=== PATIENT | male | born 1955 | race African-American/Black ===

== ENCOUNTER 2018-05-07 13:09 | Inpatient (IN) | payer OTHER ==
[~2018-05-07] VITALS: Ht 182.9 cm; Wt 64.0 kg
[2018-05-07 13:15] VITALS: BP 85/58
[2018-05-07] MEDS ORDERED: NS 1000ml 2,200 ML IVLG ONE (13:30)
[2018-05-07 13:41] LABS: APPEARANCE,URINE VERY CLOUDY; BILIRUBIN, URINE NEGATIVE (NEGATIVE); COLOR,URINE AMBER; GLUCOSE, URINE (UA) NEGATIVE (NEGATIVE); KETONES,URINE 1+ (NEGATIVE); LEUKOCYTE ESTERASE ,URINE 3+ (NEGATIVE); NITRITE,URINE NEGATIVE (NEGATIVE); PH,URINE 6.5 (4.5-8.0); PROTEIN,URINE 2+ (NEGATIVE); UROBILINOGEN,URINE 4 MG/DL (0.0-1.0)
[2018-05-07 13:42] LABS: HEMATOCRIT 33.2 % (42.0-52.0); HEMOGLOBIN 10.1 G/DL (14.2-18.0); MEAN CORPUSCULAR VOLUME 73 FL (80-99); PLATELET COUNT 191 K/UL (150-450); RED BLOOD COUNT 4.52 M/UL (4.70-6.10); RED CELL DISTRIBUTION WIDTH 15.9 % (11.6-14.8); WHITE BLOOD COUNT 16.9 K/UL (4.8-10.8)
[2018-05-07 13:58] LABS: ANION GAP 8 mmol/L (5-15); BLOOD UREA NITROGEN 53 mg/dL (7-18); CALCIUM 9.1 MG/DL (8.5-10.1); CARBON DIOXIDE 30 MMOL/L (21-32); CHLORIDE 114 MMOL/L (98-107); CREATININE 1.1 MG/DL (0.55-1.30); POTASSIUM 3.7 MMOL/L (3.5-5.1); SODIUM 152 MMOL/L (136-145)
[2018-05-07 14:07] LABS: INR 1.2 (0.9-1.1)
[2018-05-07 14:13] LABS: ALANINE AMINOTRANSFERASE 106 U/L (12-78); ALBUMIN 2.1 G/DL (3.4-5.0); ALBUMIN/GLOBULIN RATIO 0.4 (1.0-2.7); ALKALINE PHOSPHATASE 160 U/L (46-116); ASPARTATE AMINO TRANSFERASE 38 U/L (15-37); BILIRUBIN,TOTAL 0.4 MG/DL (0.2-1.0); CKMB 1.3 NG/ML (0.0-3.6); CREATINE KINASE 274 U/L (26-308)
--- NOTE | 2018-05-07 14:16 | Diagnostic Imaging Report ---
Indication: Cough, chest pain Technique: One view of the chest Comparison: none Findings: There are bilateral mixed interstitial and alveolar infiltrates in the lower lungs, right greater than left. The heart size is upper limits of normal. The aorta is tortuous and calcified. The pleural spaces are clear Impression: Positive for bilateral lower lung infiltrates, likely pneumonia
--- NOTE | 2018-05-07 14:18 | Emergency Room Report ---
History of Present Illness General Chief Complaint: General Complaint Source: Medical Record, PMD Present Illness HPI 63 male with history of hypertension sent by Dr. Bernal for fever and pneumonia documented as an outpatient in the care home. Allergies: Coded Allergies: No Known Allergies (Unverified , 05/07/18) Patient History Limited by: medical condition Past Medical History: see triage record Reviewed Nursing Documentation: PMH: Agreed; PSxH: Agreed Nursing Documentation-PMH Past Medical History: No History, Except For Hx Hypertension: Yes Hx COPD: Yes - emphysema Hx Gastrointestinal Problems: Yes - Dysphagia. GERD Hx Seizures: Yes Review of Systems All Other Systems: limited Physical Exam Vital Signs Date Time Temp Pulse Resp B/P (MAP) Pulse Ox O2 Delivery O2 Flow Rate FiO2 05/07/18 13:03 99.1 111 20 85/58 96 Room Air 99.1 Sp02 EP Interpretation: reviewed, normal General Appearance: alert, mild distress Head: normocephalic Eyes: bilateral eye normal inspection, bilateral eye PERRL, bilateral eye EOMI ENT: normal ENT inspection, hearing grossly normal, normal pharynx, no angioedema, normal voice, dry mucus membranes Neck: normal inspection, supple, supple/symm/no masses Respiratory: chest non-tender, rhonchi - R>L, chest symmetrical, palpation of chest normal Cardiovascular #1: normal peripheral pulses, regular rate, rhythm Cardiovascular #2: 2+ carotid (R), 2+ carotid (L) Gastrointestinal: normal inspection, non tender, soft, no mass, no guarding, no rebound Rectal: deferred Genitourinary: normal inspection, no CVA tenderness Musculoskeletal: back normal, gait/station normal, normal range of motion, non- tender, no calf tenderness Neurologic: alert, responsive, client relationship manager III-XII nml as tested, motor strength/tone normal, sensory intact, speech normal Skin: normal color, no rash, warm/dry Lymphatic: no adenopathy Procedures Critical Care Time Critical Care Time 35 minutes of critical care time excluding all procedures, due to hypotension and need for emergent intervention in the setting of sepsis Medical Decision Making Diagnostic Impression: Primary Impression: Sepsis ER Course Upon arrival patient received 30 mL daily IV fluid resuscitation as well as blood cultures, lactic acid and broad-spectrum antibiotics. Patient remained stable and had improvement and low blood pressure, focused sepsis examination was performed again later and patient's hemodynamics improved I spoke with Dr. Bernal, and he pointed patient admitted to his service. EKG Diagnostic Results EKG Time: 13:28 EP Interpretation: no st-t- changes, no twi Rate: normal Rhythm: NSR ST Segments: no acute changes Rhythm Strip Diag. Results Rhythm Strip Time: 14:17 EP Interpretation: yes Rate: 115 Rhythm: NSR, no PVC's, no ectopy Chest X-Ray Diagnostic Results Chest X-Ray Diagnostic Results : Chest X-Ray Ordered: Yes # of Views/Limited/Complete: 1 View Indication: Shortness of Breath EP Interpretation: Yes Interpretation: no effusion, no pneumothorax, other - R sided consolidation Impression: Other - R PNA Electronically Signed by: Mone Gomez MD Last Vital Signs Date Time Temp Pulse Resp B/P (MAP) Pulse Ox O2 Delivery O2 Flow Rate FiO2 05/07/18 13:15 100.9 20 85/58 96 Room Air 100.9 05/07/18 13:03 111 Disposition: ADMITTED INPATIENT Condition: Stable Referrals: Edna Delaney MD (PCP) MONE GOMEZ M.D May 07, 2018 14:18
[2018-05-07] MEDS ORDERED: OMEPRAZOLE20 M2 GT (14:20)
[2018-05-07] MEDS ORDERED: GLYCOPYRROLATE1 MG GT (14:20)
[2018-05-07] MEDS ORDERED: LISINOPRIL20 MG GT (14:20)
[2018-05-07] MEDS ORDERED: VITAMIN D400 INTLU GT (14:20)
[2018-05-07] MEDS ORDERED: MIRALAX17 G2 GT (14:20)
[2018-05-07] MEDS ORDERED: ATORVASTATIN CA20 MG GT (14:20)
[2018-05-07] MEDS ORDERED: HIBICLENS118 ML GT (14:20)
[2018-05-07] MEDS ORDERED: HEPARIN SO5000 UNIT2 SUBQ (14:20)
[2018-05-07] MEDS ORDERED: KEPPRA LIQ100 MG/1 M GT (14:20)
[2018-05-07] MEDS ORDERED: PROSTATE THERA1 EACH GT (14:20)
[2018-05-07] MEDS ORDERED: ASPIR 8181 MG GT (14:20)
[2018-05-07 15:22] VITALS: BP 101/69
[2018-05-07 16:50] VITALS: BP 100/62
[2018-05-07] MEDS ORDERED: Miralax 17gm pkt ORAL PRN (18:00)
[2018-05-07] MEDS ORDERED: Lisinopril 20mg tab GT SCH (18:00)
[2018-05-07] MEDS: D5 1/2NS 1,000 ML IV SCH (19:04)
--- NOTE | 2018-05-07 19:08 | Consultation ---
History of Present Illness General Date patient seen: May 07, 2018 Chief Complaint: General Complaint Present Illness HPI 63 y/o M with hx of HTN, COPD/emphysema, dysphagia s/p G-tube, GERD, seizure disorder presents to ED on 05/07 from snf due to BP of 86/58, fever up to 101.5 and concern for PNA. Here TM 100.9 WBC 16 CXR with b/l infilrates/ Allergies: Coded Allergies: No Known Allergies (Unverified , 05/07/18) Medication History Scheduled Aspirin* (Aspir 81*), 81 MG GT DAILY, (Reported) Atorvastatin Calcium* (Atorvastatin Calcium*), 10 MG GT BEDTIME, (Reported) Chlorhexidine Gluconate* (Hibiclens*), 15 ML GT BID, (Reported) Glycopyrrolate (Glycopyrrolate), 1 MG GT TID, (Reported) Heparin Sod (Porcine) (Heparin Sodium*), 5,000 UNITS SUBQ EVERY 12 HOURS, ( Reported) Levetiracetam (Keppra), 7.5 ML GT Q12HR, (Reported) Lisinopril (Lisinopril*), 20 MG GT DAILY, (Reported) M-17/Nettle/Pumpk/Saw Palmet (Prostate Therapy Softgel), 30 ML GT DAILY, ( Reported) Omeprazole (Omeprazole), 20 MG GT DAILY, (Reported) Polyethylene Glycol 3350* (Miralax*), 17 GM GT DAILY, (Reported) Vitamin D (Vitamin D3), 5,000 UNITS GT DAILY, (Reported) Patient History Healthcare decision maker N Resuscitation status Full Code Advanced Directive on File No Patient History Narrative Pmhx: as above Shx: reviewed Fhx: non contributory Review of Systems All Other Systems: negative except mentioned in HPI Physical Exam Physical Exam Narrative General Appearance: alert, mild distress Head: normocephalic Eyes: bilateral eye normal inspection, bilateral eye PERRL, bilateral eye EOMI ENT: normal ENT inspection, hearing grossly normal, normal pharynx, no angioedema, normal voice, dry mucus membranes Neck: normal inspection, supple, supple/symm/no masses Respiratory: chest non-tender, rhonchi - R>L, chest symmetrical, palpation of chest normal Cardiovascular #1: normal peripheral pulses, regular rate, rhythm Gastrointestinal: normal inspection, non tender, soft, no mass, no guarding, no rebound Genitourinary: normal inspection, no CVA tenderness Skin: normal color, no rash, warm/dry Last 24 Hour Vital Signs Date Time Temp Pulse Resp B/P (MAP) Pulse Ox O2 Delivery O2 Flow Rate FiO2 05/07/18 18:14 Room Air 05/07/18 18:00 100/62 05/07/18 16:50 97.2 70 100/62 (75) 97 97.2 05/07/18 16:39 100.9 83 22 100/68 100 Room Air 100.9 05/07/18 15:22 100.9 88 23 101/69 99 Room Air 100.9 05/07/18 13:15 100.9 20 85/58 96 Room Air 100.9 05/07/18 13:03 99.1 111 20 85/58 96 Room Air 99.1 Laboratory Tests Test 05/07/18 13:15 05/07/18 13:30 White Blood Count 16.9 K/UL (4.8-10.8) H Red Blood Count 4.52 M/UL (4.70-6.10) L Hemoglobin 10.1 G/DL (14.2-18.0) L Hematocrit 33.2 % (42.0-52.0) L Mean Corpuscular Volume 73 FL (80-99) L Mean Corpuscular Hemoglobin 22.4 PG (27.0-31.0) L Mean Corpuscular Hemoglobin Concent 30.5 G/DL (32.0-36.0) L Red Cell Distribution Width 15.9 % (11.6-14.8) H Platelet Count 191 K/UL (150-450) Mean Platelet Volume 9.8 FL (6.5-10.1) Neutrophils (%) (Auto) % (45.0-75.0) Lymphocytes (%) (Auto) % (20.0-45.0) Monocytes (%) (Auto) % (1.0-10.0) Eosinophils (%) (Auto) % (0.0-3.0) Basophils (%) (Auto) % (0.0-2.0) Differential Total Cells Counted 100 Neutrophils % (Manual) 88 % (45-75) H Lymphocytes % (Manual) 9 % (20-45) L Monocytes % (Manual) 3 % (1-10) Eosinophils % (Manual) 0 % (0-3) Basophils % (Manual) 0 % (0-2) Band Neutrophils 0 % (0-8) Nucleated Red Blood Cells 1 /100 WBC Platelet Estimate Adequate Platelet Morphology Normal Anisocytosis 1+ Ovalocytes 1+ Stomatocytes 1+ Prothrombin Time 12.6 SEC (9.30-11.50) H Prothromb Time International Ratio 1.2 (0.9-1.1) H Activated Partial Thromboplast Time 30 SEC (23-33) Sodium Level 152 MMOL/L (136-145) H Potassium Level 3.7 MMOL/L (3.5-5.1) Chloride Level 114 MMOL/L (98-107) H Carbon Dioxide Level 30 MMOL/L (21-32) Anion Gap 8 mmol/L (5-15) Blood Urea Nitrogen 53 mg/dL (7-18) H Creatinine 1.1 MG/DL (0.55-1.30) Estimat Glomerular Filtration Rate > 60 mL/min (>60) Glucose Level 125 MG/DL (74-106) H Lactic Acid Level 1.60 mmol/L (0.4-2.0) Calcium Level 9.1 MG/DL (8.5-10.1) Magnesium Level 2.4 MG/DL (1.8-2.4) Total Bilirubin 0.4 MG/DL (0.2-1.0) Aspartate Amino Transf (AST/SGOT) 38 U/L (15-37) H Alanine Aminotransferase (ALT/SGPT) 106 U/L (12-78) H Alkaline Phosphatase 160 U/L (46-116) H Total Creatine Kinase 274 U/L (26-308) Creatine Kinase MB 1.3 NG/ML (0.0-3.6) Creatine Kinase MB Relative Index 0.4 Troponin I 0.001 ng/mL (0.000-0.056) Pro-B-Type Natriuretic Peptide 401 pg/mL (0-125) H Total Protein 8.0 G/DL (6.4-8.2) Albumin 2.1 G/DL (3.4-5.0) L Globulin 5.9 g/dL Albumin/Globulin Ratio 0.4 (1.0-2.7) L Urine Color Mirian Urine Appearance Very cloudy Urine pH 6.5 (4.5-8.0) Urine Specific [place] 1.015 (1.005-1.035) Urine Protein 2+ (NEGATIVE) H Urine Glucose (UA) Negative (NEGATIVE) Urine Ketones 1+ (NEGATIVE) H Urine Occult Blood Negative (NEGATIVE) Urine Nitrite Negative (NEGATIVE) Urine Bilirubin Negative (NEGATIVE) Urine Ictotest Negative Urine Urobilinogen 4 MG/DL (0.0-1.0) H Urine Leukocyte Esterase 3+ (NEGATIVE) H Urine RBC 0-2 /HPF (0 - 0) H Urine WBC 5-10 /HPF (0 - 0) H Urine Squamous Epithelial Cells Few /LPF (NONE/OCC) Urine Bacteria Many /HPF (NONE) H Height (Feet): 6 Weight (Pounds): 160 Medications Current Medications Medications (Trade) Dose Ordered Sig/Violette Route PRN Reason Start Time Stop Time Status Last Admin Dose Admin Aspirin (ASA) 81 mg DAILY GT 05/08/18 09:00 06/07/18 08:59 Atorvastatin Calcium (Lipitor) 20 mg BEDTIME GT 05/07/18 21:00 06/06/18 20:59 Dextrose (Dextrose 50%) 25 ml STAT PRN IV Hypoglycemia 05/07/18 18:00 06/06/18 17:59 Dextrose (Dextrose 50%) 50 ml STAT PRN IV Hypoglycemia 05/07/18 18:00 06/06/18 17:59 Dextrose/Sodium Chloride 1,000 ml @ 50 mls/hr Q20H IV 05/07/18 18:50 06/06/18 18:49 Heparin Sodium (Porcine) (Heparin 5000 units/ml) 5,000 units EVERY 12 HOURS SUBQ 05/07/18 21:00 06/06/18 20:59 Levetiracetam (Keppra) 750 mg Q12HR GT 05/07/18 21:00 06/06/18 20:59 Levofloxacin 150 ml @ 150 mls/hr Q24H IV 05/07/18 13:30 05/08/18 13:29 05/07/18 13:36 Lisinopril (Prinivil) 20 mg ONCE GT 05/07/18 18:00 05/07/18 19:00 Pantoprazole (Protonix) 40 mg DAILY IVP 05/08/18 09:00 06/07/18 08:59 Polyethylene Glycol (Miralax) 17 gm DAILY PRN ORAL Constipation 05/07/18 18:00 06/06/18 17:59 Vitamin D (Vitamin D) 5,000 intlu DAILY GT 05/08/18 09:00 06/07/18 08:59 Assessment/Plan Assessment/Plan Abx: Levaquin 05/07- Assessment: Sepsis 2ry to PNA (HCAP vs Asp PNA) -CXR: Positive for bilateral lower lung infiltrates, likely pneumonia' -u/a wbc 5-10, nit neg, leuk +3 Fever/leukocytosis HTN COPD/emphysema dysphagia s/p G-tube GERD seizure disorder Plan: -Start empiric IV Vanco and Zosyn pending sputum cx and continue Levaquin for atypical coverage (switch to PO) -f/u cx -monitor CBC/CMP, temperatures -sp cx, legionella ag urine -GT care -aspiration precautions Thank you for this consultation. Will continue to follow along with you. Discussed with Crystal Turcios M.D. May 07, 2018 19:08
[2018-05-07] MEDS ORDERED: Sodium Chloride 3% 4ml Nebul Soln INH SCH (19:15)
[2018-05-07 20:00] VITALS: BP 122/70
[2018-05-07] MEDS ORDERED: Vancomycin 1.5 GM/D5W 250ML IVPB SCH (20:00)
[2018-05-07] MEDS: levETIRAcetam 500mg/5ml Liquid GT SCH (21:00)
[2018-05-07] MEDS: Atorvastatin 20mg tab GT SCH (21:00)
[2018-05-07] MEDS: Heparin 5000 units/ml inj SUBQ SCH (21:04)
[2018-05-07] MEDS: Piperacillin/Tazobactam 3.375 GM in D5W 110 ML IVPB SCH (23:07)
[2018-05-08] VITALS: BP 97/47
[2018-05-08 04:00] VITALS: BP 100/49
[2018-05-08] MEDS: Vancomycin 750mg/NS 250ml IVPB SCH ×2 (04:13→12:17)
[2018-05-08] MEDS: Piperacillin/Tazobactam 3.375 GM in D5W 110 ML IVPB SCH ×3 (05:48→22:14)
[2018-05-08 06:42] LABS: BASOPHILS % (AUTO) 0.3 % (0.0-2.0); HEMATOCRIT 29.3 % (42.0-52.0); HEMOGLOBIN 9.3 G/DL (14.2-18.0); LYMPHOCYTES % (AUTO) 12.7 % (20.0-45.0); MEAN CORPUSCULAR VOLUME 73 FL (80-99); MONOCYTES % (AUTO) 3.7 % (1.0-10.0); NEUTROPHILS % (AUTO) 77.4 % (45.0-75.0); PLATELET COUNT 169 K/UL (150-450); RED BLOOD COUNT 4.01 M/UL (4.70-6.10); RED CELL DISTRIBUTION WIDTH 15.5 % (11.6-14.8); WHITE BLOOD COUNT 12.1 K/UL (4.8-10.8)
[2018-05-08 06:45] LABS: ANION GAP 3 mmol/L (5-15); BLOOD UREA NITROGEN 33 mg/dL (7-18); CALCIUM 8.9 MG/DL (8.5-10.1); CARBON DIOXIDE 31 MMOL/L (21-32); CHLORIDE 115 MMOL/L (98-107); CREATININE 0.8 MG/DL (0.55-1.30); POTASSIUM 4.1 MMOL/L (3.5-5.1); SODIUM 149 MMOL/L (136-145)
[2018-05-08 08:00] VITALS: BP 102/62
[2018-05-08] MEDS: Vitamin D 1000 IU Tab GT SCH (08:53)
[2018-05-08] MEDS: Aspirin Baby 81mg GT SCH (08:54)
[2018-05-08] MEDS: Levofloxacin 500mg tab ORAL SCH (08:54)
[2018-05-08] MEDS: Pantoprazole Inj IVP SCH (08:54)
[2018-05-08] MEDS: levETIRAcetam 500mg/5ml Liquid GT SCH ×2 (08:54→20:47)
[2018-05-08] MEDS: Heparin 5000 units/ml inj SUBQ SCH ×2 (08:55→20:49)
--- NOTE | 2018-05-08 09:09 | Consultation ---
History of Present Illness General Date patient seen: May 08, 2018 Chief Complaint: General Complaint Reason for Consultation: right foot cellulitis Present Illness HPI 63 year old male with past medical history of HTN, COPD, emphysema, dysphagia s/ p G-tube on feeds, GERD, seizure disorder who is a custodial resident was sent to ED for evaluation of sepsis. patient hypotensive and febrile. concerns for pneumonia, aspiration, foot infection. surgery called to evaluate right foot as possible etiology of sepsis and assist with care/management. patient seen, chart reviewed, patient examined. Allergies: Coded Allergies: No Known Allergies (Unverified , 05/07/18) Medication History Scheduled Aspirin* (Aspir 81*), 81 MG GT DAILY, (Reported) Atorvastatin Calcium* (Atorvastatin Calcium*), 10 MG GT BEDTIME, (Reported) Chlorhexidine Gluconate* (Hibiclens*), 15 ML GT BID, (Reported) Glycopyrrolate (Glycopyrrolate), 1 MG GT TID, (Reported) Heparin Sod (Porcine) (Heparin Sodium*), 5,000 UNITS SUBQ EVERY 12 HOURS, ( Reported) Levetiracetam (Keppra), 7.5 ML GT Q12HR, (Reported) Lisinopril (Lisinopril*), 20 MG GT DAILY, (Reported) M-17/Nettle/Pumpk/Saw Palmet (Prostate Therapy Softgel), 30 ML GT DAILY, ( Reported) Omeprazole (Omeprazole), 20 MG GT DAILY, (Reported) Polyethylene Glycol 3350* (Miralax*), 17 GM GT DAILY, (Reported) Vitamin D (Vitamin D3), 5,000 UNITS GT DAILY, (Reported) Patient History Limited by: medical condition History Provided By: Medical Record, PMD Healthcare decision maker N Resuscitation status Full Code Advanced Directive on File No Past Medical/Surgical History Past Medical/Surgical History: (1) Abrasion, left hip, initial encounter (2) Right foot ulcer (3) Sepsis Review of Systems All Other Systems: negative except mentioned in HPI Physical Exam General Appearance: no apparent distress HEENT: atraumatic, mucous membranes moist Neck: normal inspection Respiratory/Chest: no respiratory distress, no accessory muscle use Cardiovascular/Chest: normal rate, regular rhythm Abdomen: normal bowel sounds, soft, no organomegaly, no mass, feeding tube Extremities: normal inspection Skin Exam: warm/dry, other - see wound care photos Last 24 Hour Vital Signs Date Time Temp Pulse Resp B/P (MAP) Pulse Ox O2 Delivery O2 Flow Rate FiO2 05/08/18 04:00 97.6 82 18 100/49 (66) 95 97.6 05/08/18 03:34 85 05/08/18 00:00 97.8 88 18 97/47 (64) 97 97.8 05/07/18 23:57 82 05/07/18 21:00 Room Air 05/07/18 20:01 86 05/07/18 20:00 97.7 95 18 122/70 (87) 97 97.7 05/07/18 18:14 Room Air 05/07/18 18:00 100/62 05/07/18 17:16 85 05/07/18 16:50 97.2 70 100/62 (75) 97 97.2 05/07/18 16:39 100.9 83 22 100/68 100 Room Air 100.9 05/07/18 15:22 100.9 88 23 101/69 99 Room Air 100.9 05/07/18 13:15 100.9 20 85/58 96 Room Air 100.9 05/07/18 13:03 99.1 111 20 85/58 96 Room Air 99.1 Intake and Output 05/07/18 05/08/18 19:00 07:00 Intake Total 2350 ml Output Total 100 ml 700 ml Balance 2250 ml -700 ml Intake IV Total 2350 ml Output Urine Total 100 ml 700 ml # Voids 1 Laboratory Tests Test 05/07/18 13:15 05/07/18 13:30 05/08/18 05:35 05/08/18 06:30 White Blood Count 16.9 K/UL (4.8-10.8) H 12.1 K/UL (4.8-10.8) H Red Blood Count 4.52 M/UL (4.70-6.10) L 4.01 M/UL (4.70-6.10) L Hemoglobin 10.1 G/DL (14.2-18.0) L 9.3 G/DL (14.2-18.0) L Hematocrit 33.2 % (42.0-52.0) L 29.3 % (42.0-52.0) L Mean Corpuscular Volume 73 FL (80-99) L 73 FL (80-99) L Mean Corpuscular Hemoglobin 22.4 PG (27.0-31.0) L 23.1 PG (27.0-31.0) L Mean Corpuscular Hemoglobin Concent 30.5 G/DL (32.0-36.0) L 31.7 G/DL (32.0-36.0) L Red Cell Distribution Width 15.9 % (11.6-14.8) H 15.5 % (11.6-14.8) H Platelet Count 191 K/UL (150-450) 169 K/UL (150-450) Mean Platelet Volume 9.8 FL (6.5-10.1) 10.5 FL (6.5-10.1) H Neutrophils (%) (Auto) % (45.0-75.0) 77.4 % (45.0-75.0) H Lymphocytes (%) (Auto) % (20.0-45.0) 12.7 % (20.0-45.0) L Monocytes (%) (Auto) % (1.0-10.0) 3.7 % (1.0-10.0) Eosinophils (%) (Auto) % (0.0-3.0) 6.0 % (0.0-3.0) H Basophils (%) (Auto) % (0.0-2.0) 0.3 % (0.0-2.0) Differential Total Cells Counted 100 Neutrophils % (Manual) 88 % (45-75) H Lymphocytes % (Manual) 9 % (20-45) L Monocytes % (Manual) 3 % (1-10) Eosinophils % (Manual) 0 % (0-3) Basophils % (Manual) 0 % (0-2) Band Neutrophils 0 % (0-8) Nucleated Red Blood Cells 1 /100 WBC Platelet Estimate Adequate Platelet Morphology Normal Anisocytosis 1+ Ovalocytes 1+ Stomatocytes 1+ Prothrombin Time 12.6 SEC (9.30-11.50) H Prothromb Time International Ratio 1.2 (0.9-1.1) H Activated Partial Thromboplast Time 30 SEC (23-33) Sodium Level 152 MMOL/L (136-145) H 149 MMOL/L (136-145) H Potassium Level 3.7 MMOL/L (3.5-5.1) 4.1 MMOL/L (3.5-5.1) Chloride Level 114 MMOL/L (98-107) H 115 MMOL/L (98-107) H Carbon Dioxide Level 30 MMOL/L (21-32) 31 MMOL/L (21-32) Anion Gap 8 mmol/L (5-15) 3 mmol/L (5-15) L Blood Urea Nitrogen 53 mg/dL (7-18) H 33 mg/dL (7-18) H Creatinine 1.1 MG/DL (0.55-1.30) 0.8 MG/DL (0.55-1.30) Estimat Glomerular Filtration Rate > 60 mL/min (>60) > 60 mL/min (>60) Glucose Level 125 MG/DL (74-106) H 102 MG/DL (74-106) Lactic Acid Level 1.60 mmol/L (0.4-2.0) 1.90 mmol/L (0.4-2.0) Calcium Level 9.1 MG/DL (8.5-10.1) 8.9 MG/DL (8.5-10.1) Magnesium Level 2.4 MG/DL (1.8-2.4) Total Bilirubin 0.4 MG/DL (0.2-1.0) Aspartate Amino Transf (AST/SGOT) 38 U/L (15-37) H Alanine Aminotransferase (ALT/SGPT) 106 U/L (12-78) H Alkaline Phosphatase 160 U/L (46-116) H Total Creatine Kinase 274 U/L (26-308) Creatine Kinase MB 1.3 NG/ML (0.0-3.6) Creatine Kinase MB Relative Index 0.4 Troponin I 0.001 ng/mL (0.000-0.056) Pro-B-Type Natriuretic Peptide 401 pg/mL (0-125) H Total Protein 8.0 G/DL (6.4-8.2) Albumin 2.1 G/DL (3.4-5.0) L Globulin 5.9 g/dL Albumin/Globulin Ratio 0.4 (1.0-2.7) L Urine Color Mirian Urine Appearance Very cloudy Urine pH 6.5 (4.5-8.0) Urine Specific [place] 1.015 (1.005-1.035) Urine Protein 2+ (NEGATIVE) H Urine Glucose (UA) Negative (NEGATIVE) Urine Ketones 1+ (NEGATIVE) H Urine Occult Blood Negative (NEGATIVE) Urine Nitrite Negative (NEGATIVE) Urine Bilirubin Negative (NEGATIVE) Urine Ictotest Negative Urine Urobilinogen 4 MG/DL (0.0-1.0) H Urine Leukocyte Esterase 3+ (NEGATIVE) H Urine RBC 0-2 /HPF (0 - 0) H Urine WBC 5-10 /HPF (0 - 0) H Urine Squamous Epithelial Cells Few /LPF (NONE/OCC) Urine Bacteria Many /HPF (NONE) H Urine Legionella Antigen Pending Microbiology Date/Time Source Procedure Growth Status 05/07/18 13:30 Urine,Clean Catch Urine Culture - Preliminary Gram Positive Cocci Resulted Height (Feet): 6 Weight (Pounds): 160 Medications Current Medications Medications (Trade) Dose Ordered Sig/Violette Route PRN Reason Start Time Stop Time Status Last Admin Dose Admin Aspirin (ASA) 81 mg DAILY GT 05/08/18 09:00 06/07/18 08:59 05/08/18 08:54 Atorvastatin Calcium (Lipitor) 20 mg BEDTIME GT 05/07/18 21:00 06/06/18 20:59 05/07/18 21:00 Dextrose (Dextrose 50%) 25 ml STAT PRN IV Hypoglycemia 05/07/18 18:00 06/06/18 17:59 Dextrose (Dextrose 50%) 50 ml STAT PRN IV Hypoglycemia 05/07/18 18:00 06/06/18 17:59 Dextrose/Sodium Chloride 1,000 ml @ 50 mls/hr Q20H IV 05/07/18 18:50 06/06/18 18:49 05/07/18 19:04 Heparin Sodium (Porcine) (Heparin 5000 units/ml) 5,000 units EVERY 12 HOURS SUBQ 05/07/18 21:00 06/06/18 20:59 05/08/18 08:55 Levetiracetam (Keppra) 750 mg Q12HR GT 05/07/18 21:00 06/06/18 20:59 05/08/18 08:54 Levofloxacin (Levaquin) 750 mg DAILY ORAL 05/08/18 09:00 05/15/18 08:59 05/08/18 08:54 Pantoprazole (Protonix) 40 mg DAILY IVP 05/08/18 09:00 06/07/18 08:59 05/08/18 08:54 Piperacillin Sod/ Tazobactam Sod 3.375 gm/Dextrose 110 ml @ 27.5 mls/hr EVERY 8 HOURS IVPB 05/07/18 22:00 05/12/18 21:59 05/08/18 05:48 Polyethylene Glycol (Miralax) 17 gm DAILY PRN ORAL Constipation 05/07/18 18:00 06/06/18 17:59 Vancomycin HCl (Vanco rx to dose) 1 ea DAILY PRN MISC Per rx protocol 05/07/18 19:15 06/06/18 19:14 Vancomycin/Sodium Chloride 250 ml @ 166.667 mls/hr Q8H IVPB 05/08/18 04:00 05/13/18 03:59 05/08/18 04:13 Vitamin D (Vitamin D) 5,000 intlu DAILY GT 05/08/18 09:00 06/07/18 08:59 05/08/18 08:53 Assessment/Plan Problem List: (1) Sepsis Assessment & Plan: IV Abx as per ID ICD Codes: A41.9 - Sepsis, unspecified organism SNOMED: 06246948 Qualifiers: Qualified Codes: A41.9 - Sepsis, unspecified organism (2) Abrasion, left hip, initial encounter Assessment & Plan: superficial abrasion of left hip. likely pressure related. limited to skin. stage II. foam dressings. keep off wound. skin protectant. turn q2h. ICD Codes: S70.212A - Abrasion, left hip, initial encounter SNOMED: 917864765 (3) Right foot ulcer Assessment & Plan: right lateral mid foot and distal foot ulcer. mid foot ulcer 2cm and distal ulcer 1cm. no active drainage. some edema of foot but no significant cellulitis. no signs of active infection and likely chronic. no odor. unstageable. -foam dressings -skin protectant -will order plain films -keep off wounds -heel protectors -turn q2h. ICD Codes: L97.519 - Non-pressure chronic ulcer of other part of right foot with unspecified severity SNOMED: 39274156 Status: unchanged JonathanowenDarion cadena May 08, 2018 09:09
--- NOTE | 2018-05-08 11:42 | History & Physical ---
History and Physical History & Physicial Job ID: [id number] Say Shin MD May 08, 2018 11:42
[2018-05-08 12:00] VITALS: BP 95/61
--- NOTE | 2018-05-08 13:12 | Consultation ---
History of Present Illness General Date patient seen: May 08, 2018 Chief Complaint: General Complaint Reason for Consultation: right foot cellulitis Present Illness HPI 63 male with hx of dementia, Bed bound, COPD, halfway resident brought in for evaluation of fever and pneumonia. Pt can't give history. He seems awake and comfortable and can't talk. All information is obtained from the chart. Allergies: Coded Allergies: No Known Allergies (Unverified , 05/07/18) Medication History Scheduled Aspirin* (Aspir 81*), 81 MG GT DAILY, (Reported) Atorvastatin Calcium* (Atorvastatin Calcium*), 10 MG GT BEDTIME, (Reported) Chlorhexidine Gluconate* (Hibiclens*), 15 ML GT BID, (Reported) Glycopyrrolate (Glycopyrrolate), 1 MG GT TID, (Reported) Heparin Sod (Porcine) (Heparin Sodium*), 5,000 UNITS SUBQ EVERY 12 HOURS, ( Reported) Levetiracetam (Keppra), 7.5 ML GT Q12HR, (Reported) Lisinopril (Lisinopril*), 20 MG GT DAILY, (Reported) M-17/Nettle/Pumpk/Saw Palmet (Prostate Therapy Softgel), 30 ML GT DAILY, ( Reported) Omeprazole (Omeprazole), 20 MG GT DAILY, (Reported) Polyethylene Glycol 3350* (Miralax*), 17 GM GT DAILY, (Reported) Vitamin D (Vitamin D3), 5,000 UNITS GT DAILY, (Reported) Patient History Healthcare decision maker N Resuscitation status Full Code Advanced Directive on File No Past Medical/Surgical History Past Medical/Surgical History: (1) COPD (chronic obstructive pulmonary disease) (2) Dementia (3) Severe protein-calorie malnutrition Review of Systems All Other Systems: negative except mentioned in HPI Physical Exam General Appearance: cachetic Lines, tubes and drains: peripheral HEENT: normocephalic, atraumatic Neck: non-tender, supple Respiratory/Chest: chest wall non-tender, lungs clear Breasts: no masses Cardiovascular/Chest: normal peripheral pulses Abdomen: normal bowel sounds Last 24 Hour Vital Signs Date Time Temp Pulse Resp B/P (MAP) Pulse Ox O2 Delivery O2 Flow Rate FiO2 05/08/18 12:00 97.0 77 20 95/61 (72) 100 97.0 7/26/18 09:00 Room Air 05/08/18 08:00 97.5 83 20 102/62 (75) 100 97.5 05/08/18 08:00 68 05/08/18 04:00 97.6 82 18 100/49 (66) 95 97.6 05/08/18 03:34 85 05/08/18 00:00 97.8 88 18 97/47 (64) 97 97.8 05/07/18 23:57 82 05/07/18 21:00 Room Air 05/07/18 20:01 86 05/07/18 20:00 97.7 95 18 122/70 (87) 97 97.7 05/07/18 18:14 Room Air 05/07/18 18:00 100/62 05/07/18 17:16 85 05/07/18 16:50 97.2 70 100/62 (75) 97 97.2 05/07/18 16:39 100.9 83 22 100/68 100 Room Air 100.9 05/07/18 15:22 100.9 88 23 101/69 99 Room Air 100.9 05/07/18 13:15 100.9 20 85/58 96 Room Air 100.9 Intake and Output 05/07/18 05/08/18 19:00 07:00 Intake Total 2350 ml 143 ml Output Total 100 ml 700 ml Balance 2250 ml -557 ml IV Total 2350 ml 83 ml Tube Feeding 60 ml Output Urine Total 100 ml 700 ml # Voids 1 Laboratory Tests Test 05/07/18 13:15 05/07/18 13:30 05/08/18 05:35 05/08/18 06:30 White Blood Count 16.9 K/UL (4.8-10.8) H 12.1 K/UL (4.8-10.8) H Red Blood Count 4.52 M/UL (4.70-6.10) L 4.01 M/UL (4.70-6.10) L Hemoglobin 10.1 G/DL (14.2-18.0) L 9.3 G/DL (14.2-18.0) L Hematocrit 33.2 % (42.0-52.0) L 29.3 % (42.0-52.0) L Mean Corpuscular Volume 73 FL (80-99) L 73 FL (80-99) L Mean Corpuscular Hemoglobin 22.4 PG (27.0-31.0) L 23.1 PG (27.0-31.0) L Mean Corpuscular Hemoglobin Concent 30.5 G/DL (32.0-36.0) L 31.7 G/DL (32.0-36.0) L Red Cell Distribution Width 15.9 % (11.6-14.8) H 15.5 % (11.6-14.8) H Platelet Count 191 K/UL (150-450) 169 K/UL (150-450) Mean Platelet Volume 9.8 FL (6.5-10.1) 10.5 FL (6.5-10.1) H Neutrophils (%) (Auto) % (45.0-75.0) 77.4 % (45.0-75.0) H Lymphocytes (%) (Auto) % (20.0-45.0) 12.7 % (20.0-45.0) L Monocytes (%) (Auto) % (1.0-10.0) 3.7 % (1.0-10.0) Eosinophils (%) (Auto) % (0.0-3.0) 6.0 % (0.0-3.0) H Basophils (%) (Auto) % (0.0-2.0) 0.3 % (0.0-2.0) Differential Total Cells Counted 100 Neutrophils % (Manual) 88 % (45-75) H Lymphocytes % (Manual) 9 % (20-45) L Monocytes % (Manual) 3 % (1-10) Eosinophils % (Manual) 0 % (0-3) Basophils % (Manual) 0 % (0-2) Band Neutrophils 0 % (0-8) Nucleated Red Blood Cells 1 /100 WBC Platelet Estimate Adequate Platelet Morphology Normal Anisocytosis 1+ Ovalocytes 1+ Stomatocytes 1+ Prothrombin Time 12.6 SEC (9.30-11.50) H Prothromb Time International Ratio 1.2 (0.9-1.1) H Activated Partial Thromboplast Time 30 SEC (23-33) Sodium Level 152 MMOL/L (136-145) H 149 MMOL/L (136-145) H Potassium Level 3.7 MMOL/L (3.5-5.1) 4.1 MMOL/L (3.5-5.1) Chloride Level 114 MMOL/L (98-107) H 115 MMOL/L (98-107) H Carbon Dioxide Level 30 MMOL/L (21-32) 31 MMOL/L (21-32) Anion Gap 8 mmol/L (5-15) 3 mmol/L (5-15) L Blood Urea Nitrogen 53 mg/dL (7-18) H 33 mg/dL (7-18) H Creatinine 1.1 MG/DL (0.55-1.30) 0.8 MG/DL (0.55-1.30) Estimat Glomerular Filtration Rate > 60 mL/min (>60) > 60 mL/min (>60) Glucose Level 125 MG/DL (74-106) H 102 MG/DL (74-106) Lactic Acid Level 1.60 mmol/L (0.4-2.0) 1.90 mmol/L (0.4-2.0) Calcium Level 9.1 MG/DL (8.5-10.1) 8.9 MG/DL (8.5-10.1) Magnesium Level 2.4 MG/DL (1.8-2.4) Total Bilirubin 0.4 MG/DL (0.2-1.0) Aspartate Amino Transf (AST/SGOT) 38 U/L (15-37) H Alanine Aminotransferase (ALT/SGPT) 106 U/L (12-78) H Alkaline Phosphatase 160 U/L (46-116) H Total Creatine Kinase 274 U/L (26-308) Creatine Kinase MB 1.3 NG/ML (0.0-3.6) Creatine Kinase MB Relative Index 0.4 Troponin I 0.001 ng/mL (0.000-0.056) Pro-B-Type Natriuretic Peptide 401 pg/mL (0-125) H Total Protein 8.0 G/DL (6.4-8.2) Albumin 2.1 G/DL (3.4-5.0) L Globulin 5.9 g/dL Albumin/Globulin Ratio 0.4 (1.0-2.7) L Urine Color Mirian Urine Appearance Very cloudy Urine pH 6.5 (4.5-8.0) Urine Specific [place] 1.015 (1.005-1.035) Urine Protein 2+ (NEGATIVE) H Urine Glucose (UA) Negative (NEGATIVE) Urine Ketones 1+ (NEGATIVE) H Urine Occult Blood Negative (NEGATIVE) Urine Nitrite Negative (NEGATIVE) Urine Bilirubin Negative (NEGATIVE) Urine Ictotest Negative Urine Urobilinogen 4 MG/DL (0.0-1.0) H Urine Leukocyte Esterase 3+ (NEGATIVE) H Urine RBC 0-2 /HPF (0 - 0) H Urine WBC 5-10 /HPF (0 - 0) H Urine Squamous Epithelial Cells Few /LPF (NONE/OCC) Urine Bacteria Many /HPF (NONE) H Urine Legionella Antigen Pending Microbiology Date/Time Source Procedure Growth Status 05/07/18 13:30 Urine,Clean Catch Urine Culture - Preliminary Gram Positive Cocci Resulted Height (Feet): 6 Weight (Pounds): 160 Medications Current Medications Medications (Trade) Dose Ordered Sig/Violette Route PRN Reason Start Time Stop Time Status Last Admin Dose Admin Aspirin (ASA) 81 mg DAILY GT 05/08/18 09:00 06/07/18 08:59 05/08/18 08:54 Atorvastatin Calcium (Lipitor) 20 mg BEDTIME GT 05/07/18 21:00 06/06/18 20:59 05/07/18 21:00 Dextrose (Dextrose 50%) 25 ml STAT PRN IV Hypoglycemia 05/07/18 18:00 06/06/18 17:59 Dextrose (Dextrose 50%) 50 ml STAT PRN IV Hypoglycemia 05/07/18 18:00 06/06/18 17:59 Dextrose/Sodium Chloride 1,000 ml @ 50 mls/hr Q20H IV 05/07/18 18:50 06/06/18 18:49 05/07/18 19:04 Heparin Sodium (Porcine) (Heparin 5000 units/ml) 5,000 units EVERY 12 HOURS SUBQ 05/07/18 21:00 06/06/18 20:59 05/08/18 08:55 Levetiracetam (Keppra) 750 mg Q12HR GT 05/07/18 21:00 06/06/18 20:59 05/08/18 08:54 Levofloxacin (Levaquin) 750 mg DAILY ORAL 05/08/18 09:00 05/15/18 08:59 05/08/18 08:54 Pantoprazole (Protonix) 40 mg DAILY IVP 05/08/18 09:00 06/07/18 08:59 05/08/18 08:54 Piperacillin Sod/ Tazobactam Sod 3.375 gm/Dextrose 110 ml @ 27.5 mls/hr EVERY 8 HOURS IVPB 05/07/18 22:00 05/12/18 21:59 05/08/18 05:48 Polyethylene Glycol (Miralax) 17 gm DAILY PRN ORAL Constipation 05/07/18 18:00 06/06/18 17:59 Vancomycin HCl (Vanco rx to dose) 1 ea DAILY PRN MISC Per rx protocol 05/07/18 19:15 06/06/18 19:14 Vancomycin/Sodium Chloride 250 ml @ 166.667 mls/hr Q8H IVPB 05/08/18 04:00 05/13/18 03:59 05/08/18 12:17 Vitamin D (Vitamin D) 5,000 intlu DAILY GT 05/08/18 09:00 06/07/18 08:59 05/08/18 08:53 Assessment/Plan Problem List: (1) Sepsis ICD Codes: A41.9 - Sepsis, unspecified organism SNOMED: 80074693 Qualifiers: Qualified Codes: A41.9 - Sepsis, unspecified organism (2) COPD (chronic obstructive pulmonary disease) ICD Codes: J44.9 - Chronic obstructive pulmonary disease, unspecified SNOMED: 48089127 (3) Severe protein-calorie malnutrition ICD Codes: E43 - Unspecified severe protein-calorie malnutrition SNOMED: 500083545 (4) Dementia ICD Codes: F03.90 - Unspecified dementia without behavioral disturbance SNOMED: 23567473 Assessment/Plan respiratory treatment check sputum iv abx check cultures titrate fio2 to sat of 92% dvt prophylaxis. Ta Martinez MD May 08, 2018 13:12
[2018-05-08] MEDS: D5 1/2NS 1,000 ML IV SCH (14:20)
--- NOTE | 2018-05-08 15:57 | Diagnostic Imaging Report ---
Indication: Pain, ulcerated sore on lateral side of foot Technique: 3 views right foot Comparison: none Findings: Very slight irregularity of the soft tissues lateral to the fifth metatarsal head may be related to stated clinical history of soft tissue ulcer. No definite osseous erosions, periosteal reaction, or osteolytic lesion. No acute fractures or dislocations. The joint spaces are preserved. Impression: Possible soft tissue ulcer overlying the fifth metatarsal head No plain radiographic evidence of osteomyelitis. Note, however, limited sensitivity of plain radiographs for such. Consider MRI or bone scan for better characterization if there is high clinical suspicion No acute bony trauma
[2018-05-08 16:00] VITALS: BP 108/67
--- NOTE | 2018-05-08 16:30 | Consultation ---
DATE OF CONSULTATION: 05/08/2018 CONSULTING PHYSICIAN: Tommy Aburto M.D. REFERRING PHYSICIAN: Say Shin M.D. REASON FOR CONSULTATION: 1. Dehydration. 2. Hypernatremia. HISTORY OF PRESENT ILLNESS: The patient is a 62-year-old gentleman, who was sent from the correction for further evaluation and care of sepsis and possible underlying pneumonia and it was noted that he had an elevated serum sodium of 152 and creatinine of 1.1. ALLERGIES: No known drug allergies. PAST MEDICAL HISTORY: 1. Hyperlipidemia. 2. Hypertension. 3. Vitamin D deficiency. 4. Constipation. PAST SURGICAL HISTORY: G-tube. FAMILY HISTORY: Noncontributory. REVIEW OF SYSTEMS: Cannot obtain as the patient is not answering any questions. LABORATORY DATA: Laboratories dated May 08, 2018, sodium 149, potassium 4.1, creatinine 0.8. White cell count 12.1, hemoglobin 9.3, and platelet count 169. PHYSICAL EXAMINATION: VITAL SIGNS: Blood pressure 100/49, respiratory rate 18, pulse 82, temperature 97.6, and 95% oxygen saturation on room air. GENERAL: The patient awake, in no overt distress. HEENT: Extraocular muscles intact. NECK: No lymphadenopathy noted. CARDIOVASCULAR: S1, S2. No rubs or gallops. PULMONARY: Upper airway rhonchi with basilar rales. ABDOMEN: Nondistended and nontender. EXTREMITIES: No edema noted. ASSESSMENT AND PLAN: 1. Hypernatremia at this time, most likely secondary to component of approximately 3 to 5 liters of intravascular volume depletion. Serum sodium has improved with hypotonic solution from 152 to 149. At this time, we will also add free water through the G-tube. 2. Acute kidney injury secondary to volume depletion. Creatinine has improved from 1.1 to 0.8. At this time, no further renal investigations required. 3. Sepsis secondary to UTI and pneumonia. IV antibiotics per primary care physician. 4. Dehydration. Approximately 3 to 5 liters of intravascular volume depletion. At this time, continue hypotonic solution with 1/2 normal saline and will add free water. Let me take this opportunity to thank Dr. Shin. Tommy Aburto MD DR: JASON JOB#: [id number] CC:
--- NOTE | 2018-05-08 17:07 | Infectious Diseases Prog Note ---
Assessment/Plan Assessment/Plan Assessment: Sepsis; improving- 2ry to PNA (HCAP vs Asp PNA), ?UTI -CXR: Positive for bilateral lower lung infiltrates, likely pneumonia' -sp cx p p -u/a wbc 5-10, nit neg, leuk +3; ucx >100k GPC Fever/leukocytosis; improving R foot ulcer, no signs of infection -R foot xray: Possible soft tissue ulcer overlying the fifth metatarsal head. No plain radiographic evidence of osteomyelitis. Note, however, limited sensitivity of plain radiographs for such. No acute bony trauma HTN COPD/emphysema dysphagia s/p G-tube GERD seizure disorder Plan: -Continue empiric IV Vanco and Zosyn #2 pending sputum cx and Levaquin #2 for atypical coverage -f/u cx -monitor CBC/CMP, temperatures -f/u sp cx, legionella ag urine -GT care -aspiration precautions -wound care per hosp protocol Thank you for this consultation. Will continue to follow along with you. Discussed with RN. Subjective Allergies: Coded Allergies: No Known Allergies (Unverified , 05/07/18) Subjective afebrile in 24hrs leukocytosis improving Bcx p Objective Vital Signs Last 24 Hour Vital Signs Date Time Temp Pulse Resp B/P (MAP) Pulse Ox O2 Delivery O2 Flow Rate FiO2 05/08/18 16:00 97.0 74 20 108/67 (81) 95 97.0 05/08/18 16:00 85 05/08/18 12:00 97.0 77 20 95/61 (72) 100 97.0 05/08/18 12:00 75 05/08/18 09:00 Room Air 05/08/18 08:00 97.5 83 20 102/62 (75) 100 97.5 05/08/18 08:00 68 05/08/18 04:00 97.6 82 18 100/49 (66) 95 97.6 05/08/18 03:34 85 05/08/18 00:00 97.8 88 18 97/47 (64) 97 97.8 05/07/18 23:57 82 05/07/18 21:00 Room Air 05/07/18 20:01 86 05/07/18 20:00 97.7 95 18 122/70 (87) 97 97.7 05/07/18 18:14 Room Air 05/07/18 18:00 100/62 05/07/18 17:16 85 Height (Feet): 6 Weight (Pounds): 160 Objective General Appearance: alert, mild distress Head: normocephalic Eyes: bilateral eye normal inspection, bilateral eye PERRL, bilateral eye EOMI ENT: normal ENT inspection, hearing grossly normal, normal pharynx, no angioedema, normal voice, dry mucus membranes Neck: normal inspection, supple, supple/symm/no masses Respiratory: chest non-tender, rhonchi - R>L, chest symmetrical, palpation of chest normal Cardiovascular #1: normal peripheral pulses, regular rate, rhythm Gastrointestinal: normal inspection, non tender, soft, no mass, no guarding, no rebound Genitourinary: normal inspection, no CVA tenderness Skin: normal color, no rash, warm/dry Microbiology Date/Time Source Procedure Growth Status 05/07/18 05:36 Sputum Induced Gram Stain - Final Resulted 05/07/18 05:36 Sputum Induced Sputum Culture Pending Resulted 05/07/18 13:30 Urine,Clean Catch Urine Culture - Preliminary Gram Positive Cocci Resulted Laboratory Tests Test 05/08/18 05:35 05/08/18 06:30 White Blood Count 12.1 K/UL (4.8-10.8) H Red Blood Count 4.01 M/UL (4.70-6.10) L Hemoglobin 9.3 G/DL (14.2-18.0) L Hematocrit 29.3 % (42.0-52.0) L Mean Corpuscular Volume 73 FL (80-99) L Mean Corpuscular Hemoglobin 23.1 PG (27.0-31.0) L Mean Corpuscular Hemoglobin Concent 31.7 G/DL (32.0-36.0) L Red Cell Distribution Width 15.5 % (11.6-14.8) H Platelet Count 169 K/UL (150-450) Mean Platelet Volume 10.5 FL (6.5-10.1) H Neutrophils (%) (Auto) 77.4 % (45.0-75.0) H Lymphocytes (%) (Auto) 12.7 % (20.0-45.0) L Monocytes (%) (Auto) 3.7 % (1.0-10.0) Eosinophils (%) (Auto) 6.0 % (0.0-3.0) H Basophils (%) (Auto) 0.3 % (0.0-2.0) Sodium Level 149 MMOL/L (136-145) H Potassium Level 4.1 MMOL/L (3.5-5.1) Chloride Level 115 MMOL/L (98-107) H Carbon Dioxide Level 31 MMOL/L (21-32) Anion Gap 3 mmol/L (5-15) L Blood Urea Nitrogen 33 mg/dL (7-18) H Creatinine 0.8 MG/DL (0.55-1.30) Estimat Glomerular Filtration Rate > 60 mL/min (>60) Glucose Level 102 MG/DL (74-106) Lactic Acid Level 1.90 mmol/L (0.4-2.0) Calcium Level 8.9 MG/DL (8.5-10.1) Urine Legionella Antigen Pending Current Medications Medications (Trade) Dose Ordered Sig/Violette Route PRN Reason Start Time Stop Time Status Last Admin Dose Admin Aspirin (ASA) 81 mg DAILY GT 05/08/18 09:00 06/07/18 08:59 05/08/18 08:54 Atorvastatin Calcium (Lipitor) 20 mg BEDTIME GT 05/07/18 21:00 06/06/18 20:59 05/07/18 21:00 Dextrose (Dextrose 50%) 25 ml STAT PRN IV Hypoglycemia 05/07/18 18:00 06/06/18 17:59 Dextrose (Dextrose 50%) 50 ml STAT PRN IV Hypoglycemia 05/07/18 18:00 06/06/18 17:59 Dextrose/Sodium Chloride 1,000 ml @ 50 mls/hr Q20H IV 05/07/18 18:50 06/06/18 18:49 05/08/18 14:20 Heparin Sodium (Porcine) (Heparin 5000 units/ml) 5,000 units EVERY 12 HOURS SUBQ 05/07/18 21:00 06/06/18 20:59 05/08/18 08:55 Levetiracetam (Keppra) 750 mg Q12HR GT 05/07/18 21:00 06/06/18 20:59 05/08/18 08:54 Levofloxacin (Levaquin) 750 mg DAILY ORAL 05/08/18 09:00 05/15/18 08:59 05/08/18 08:54 Pantoprazole (Protonix) 40 mg DAILY IVP 05/08/18 09:00 06/07/18 08:59 05/08/18 08:54 Piperacillin Sod/ Tazobactam Sod 3.375 gm/Dextrose 110 ml @ 27.5 mls/hr EVERY 8 HOURS IVPB 05/07/18 22:00 05/12/18 21:59 05/08/18 13:47 Polyethylene Glycol (Miralax) 17 gm DAILY PRN ORAL Constipation 05/07/18 18:00 06/06/18 17:59 Vancomycin HCl (Vanco rx to dose) 1 ea DAILY PRN MISC Per rx protocol 05/07/18 19:15 06/06/18 19:14 Vancomycin/Sodium Chloride 250 ml @ 166.667 mls/hr Q8H IVPB 05/08/18 04:00 05/13/18 03:59 05/08/18 12:17 Vitamin D (Vitamin D) 5,000 intlu DAILY GT 05/08/18 09:00 06/07/18 08:59 05/08/18 08:53 Crystal Kelley M.D. May 08, 2018 17:07
[2018-05-08 20:00] VITALS: BP 125/67
[2018-05-08] MEDS: Atorvastatin 20mg tab GT SCH (20:47)
[2018-05-08] MEDS: Vancomycin 1gm in Dextrose 275ml IVPB SCH (20:47)
--- NOTE | 2018-05-08 23:30 | History and Physical Report ---
DATE OF ADMISSION: 05/07/2018 NOTE: POOR AUDIO REASON FOR ADMISSION: Pneumonia with sepsis, septic shock. IDENTIFYING DATA: The patient is a pleasant 62-year-old male with history of hypertension, COPD, emphysema, and dysphagia, status post G-tube, on tube feed status, from the long term to the ER with sepsis, hypertension, and febrile episode. The patient noted to have a foot infection, aspiration, potentially pneumonia. Surgery was called to evaluate the right foot. At this time, dressing, skin protection with ulceration noted along the right lateral midfoot. Infectious Disease Service consulted as well, saw the patient last night currently, the patient is on broad-spectrum antibiotics of vancomycin and Zosyn and . PAST MEDICAL HISTORY: As noted above, COPD, emphysema, and dysphagia, status post G-tube. PAST SURGICAL HISTORY: G-tube. ALLERGIES: No known drug allergies. REVIEW OF SYSTEMS: Difficult to obtain. None otherwise except as noted in the HPI. PHYSICAL EXAMINATION: VITAL SIGNS: Reviewed. GENERAL: No distress. PULMONARY: Decreased breath sounds. Some crackles noted. CARDIOVASCULAR: No S3 or S4. ABDOMEN: Soft. It is nontender. G-tube. EXTREMITIES: No cyanosis, swelling, or edema noted. Some ulceration noted along the foot. Pictures were taken. LABORATORY AND DIAGNOSTIC DATA: Labs reviewed. WBC of 12.1, hemoglobin 9.3, hematocrit 29, and platelet count 169,000. ASSESSMENT AND RECOMMENDATION: 1. Leukocytosis due to underlying sepsis and septic shock. Currently, he is on broad-spectrum antibiotics. Appreciate Infectious Disease Service, Surgical Service as well as Pulmonary team for evaluation of underlying pneumonia, he is being treated for that as well. 2. Anemia due to underlying chronic disease. Continue to closely monitor. Anemia panel has been reviewed. Hemoglobin goal is above 7. 3. Hypertension. Systolic blood pressure goal is less than 140. 4. Sepsis, secondary to pneumonia. 5. Seizure disorder. . 6. Dysphagia, status post gastrostomy tube. Say Shin M.D. DR: GORAN JOB#: [id number] CC:
[2018-05-09] VITALS: BP 114/79
[2018-05-09 04:00] VITALS: BP 96/65
[2018-05-09] MEDS: Vancomycin 1gm in Dextrose 275ml IVPB SCH ×2 (04:07→12:26)
[2018-05-09] MEDS: Piperacillin/Tazobactam 3.375 GM in D5W 110 ML IVPB SCH ×3 (06:03→21:01)
[2018-05-09 07:58] LABS: BASOPHILS % (AUTO) 0.4 % (0.0-2.0); EOSINOPHILS % (AUTO) 14.8 % (0.0-3.0); HEMATOCRIT 27.7 % (42.0-52.0); HEMOGLOBIN 8.6 G/DL (14.2-18.0); LYMPHOCYTES % (AUTO) 19.8 % (20.0-45.0); MEAN CORPUSCULAR VOLUME 72 FL (80-99); MONOCYTES % (AUTO) 4.3 % (1.0-10.0); NEUTROPHILS % (AUTO) 60.7 % (45.0-75.0); PLATELET COUNT 155 K/UL (150-450); RED BLOOD COUNT 3.85 M/UL (4.70-6.10); RED CELL DISTRIBUTION WIDTH 15.6 % (11.6-14.8); WHITE BLOOD COUNT 6.9 K/UL (4.8-10.8)
[2018-05-09 08:00] VITALS: BP 99/67
[2018-05-09 08:15] LABS: ALANINE AMINOTRANSFERASE 89 U/L (12-78); ALBUMIN 1.8 G/DL (3.4-5.0); ALBUMIN/GLOBULIN RATIO 0.3 (1.0-2.7); ALKALINE PHOSPHATASE 129 U/L (46-116); ANION GAP 6 mmol/L (5-15); ASPARTATE AMINO TRANSFERASE 45 U/L (15-37); BILIRUBIN,TOTAL 0.3 MG/DL (0.2-1.0); BLOOD UREA NITROGEN 25 mg/dL (7-18); CALCIUM 8.7 MG/DL (8.5-10.1); CARBON DIOXIDE 29 MMOL/L (21-32); CHLORIDE 112 MMOL/L (98-107); CREATININE 0.6 MG/DL (0.55-1.30); POTASSIUM 3.6 MMOL/L (3.5-5.1); SODIUM 147 MMOL/L (136-145)
--- NOTE | 2018-05-09 09:12 | Nephrology Progress Note ---
Assessment/Plan Assessment/Plan 1. ANIYAH- resolved. Cr back to normal 2. Hypernatremia- continue free water thru GTube. Na down to 147 3. Dehydration- resolving, continue free water 4. Sepsis- Abx per PCP and ID. Gen surgery to eval foot Subjective Date patient seen: May 09, 2018 Time patient seen: 09:10 ROS Limited/Unobtainable: No Allergies: Coded Allergies: No Known Allergies (Unverified , 05/07/18) All Systems: reviewed and negative except above Subjective Patient in no acute distress Objective Last 24 Hour Vital Signs Date Time Temp Pulse Resp B/P (MAP) Pulse Ox O2 Delivery O2 Flow Rate FiO2 05/09/18 08:00 97.1 64 16 99/67 (78) 98 97.1 05/09/18 04:16 70 05/09/18 04:00 97.0 73 20 96/65 (75) 94 97.0 05/09/18 00:00 97.5 77 20 114/79 (91) 99 97.5 05/08/18 23:20 85 05/08/18 21:00 Room Air 05/08/18 20:00 97.0 74 18 125/67 (86) 94 97.0 05/08/18 18:30 71 05/08/18 16:00 97.0 74 20 108/67 (81) 95 97.0 05/08/18 16:00 85 05/08/18 12:00 97.0 77 20 95/61 (72) 100 97.0 05/08/18 12:00 75 Intake and Output 05/08/18 05/09/18 19:00 07:00 Intake Total 2086.6660 ml Output Total 300 ml Balance 1786.6660 ml Intake Free Water 400 ml IV Total 966.6660 ml Tube Feeding 720 ml Output Urine Total 300 ml Laboratory Tests 05/08/18 18:55: Vancomycin Level Trough 14.3H 05/09/18 07:35: White Blood Count 6.9, Red Blood Count 3.85L, Hemoglobin 8.6L, Hematocrit 27.7L , Mean Corpuscular Volume 72L, Mean Corpuscular Hemoglobin 22.3L, Mean Corpuscular Hemoglobin Concent 31.0L, Red Cell Distribution Width 15.6H, Platelet Count 155, Mean Platelet Volume 12.3H, Neutrophils (%) (Auto) 60.7, Lymphocytes (%) (Auto) 19.8L, Monocytes (%) (Auto) 4.3, Eosinophils (%) (Auto) 14.8H, Basophils (%) (Auto) 0.4, Sodium Level 147H, Potassium Level 3.6, Chloride Level 112H, Carbon Dioxide Level 29, Anion Gap 6, Blood Urea Nitrogen 25H, Creatinine 0.6, Estimat Glomerular Filtration Rate > 60, Glucose Level 91, Calcium Level 8.7, Phosphorus Level 2.9, Magnesium Level 2.0, Total Bilirubin 0.3, Aspartate Amino Transf (AST/SGOT) 45H, Alanine Aminotransferase (ALT/SGPT) 89H, Alkaline Phosphatase 129H, Total Protein 7.0, Albumin 1.8L, Globulin 5.2, Albumin/Globulin Ratio 0.3L Height (Feet): 6 Weight (Pounds): 160 General Appearance: WD/WN, no apparent distress EENT: PERRL/EOMI Neck: non-tender, normal alignment Cardiovascular: normal peripheral pulses, normal rate Respiratory/Chest: chest wall non-tender, lungs clear Abdomen: normal bowel sounds, non tender, soft Edema: no edema noted Arm (L), no edema noted Arm (R), no edema noted Leg (L), no edema noted Leg (R), no edema noted Pedal (L), no edema noted Pedal (R), no edema noted Generalized Tommy Aburto M.D. May 09, 2018 09:12
[2018-05-09] MEDS: Vitamin D 1000 IU Tab GT SCH (09:42)
[2018-05-09] MEDS: levETIRAcetam 500mg/5ml Liquid GT SCH ×2 (09:43→21:00)
[2018-05-09] MEDS: Levofloxacin 500mg tab ORAL SCH (09:43)
[2018-05-09] MEDS: Pantoprazole Inj IVP SCH (09:44)
[2018-05-09] MEDS: Aspirin Baby 81mg GT SCH (09:45)
[2018-05-09] MEDS: Heparin 5000 units/ml inj SUBQ SCH ×2 (09:45→21:01)
[2018-05-09] MEDS ORDERED: D5 1/2NS 1000ml IV ONE (10:50)
--- NOTE | 2018-05-09 11:19 | General Surgery Progress Note ---
General Surgery-Progress Note Subjective Additional Comments no acute events. doing well. Objective Last 24 Hour Vital Signs Date Time Temp Pulse Resp B/P (MAP) Pulse Ox O2 Delivery O2 Flow Rate FiO2 05/09/18 08:41 85 05/09/18 08:20 Room Air 05/09/18 08:00 97.1 64 16 99/67 (78) 98 97.1 05/09/18 04:16 70 05/09/18 04:00 97.0 73 20 96/65 (75) 94 97.0 05/09/18 00:00 97.5 77 20 114/79 (91) 99 97.5 05/08/18 23:20 85 05/08/18 21:00 Room Air 05/08/18 20:00 97.0 74 18 125/67 (86) 94 97.0 05/08/18 18:30 71 05/08/18 16:00 97.0 74 20 108/67 (81) 95 97.0 05/08/18 16:00 85 05/08/18 12:00 97.0 77 20 95/61 (72) 100 97.0 05/08/18 12:00 75 I&O Intake and Output 05/08/18 05/09/18 19:00 07:00 Intake Total 2086.6660 ml Output Total 300 ml Balance 1786.6660 ml Intake Free Water 400 ml IV Total 966.6660 ml Tube Feeding 720 ml Output Urine Total 300 ml Wound: clean, dry Drains: none Cardiovascular: RSR Respiratory: clear Abdomen: soft, flat Extremities: no tenderness, no cyanosis Laboratory Tests Test 05/08/18 18:55 05/09/18 07:35 Vancomycin Level Trough 14.3 ug/mL (5.0-12.0) H White Blood Count 6.9 K/UL (4.8-10.8) Red Blood Count 3.85 M/UL (4.70-6.10) L Hemoglobin 8.6 G/DL (14.2-18.0) L Hematocrit 27.7 % (42.0-52.0) L Mean Corpuscular Volume 72 FL (80-99) L Mean Corpuscular Hemoglobin 22.3 PG (27.0-31.0) L Mean Corpuscular Hemoglobin Concent 31.0 G/DL (32.0-36.0) L Red Cell Distribution Width 15.6 % (11.6-14.8) H Platelet Count 155 K/UL (150-450) Mean Platelet Volume 12.3 FL (6.5-10.1) H Neutrophils (%) (Auto) 60.7 % (45.0-75.0) Lymphocytes (%) (Auto) 19.8 % (20.0-45.0) L Monocytes (%) (Auto) 4.3 % (1.0-10.0) Eosinophils (%) (Auto) 14.8 % (0.0-3.0) H Basophils (%) (Auto) 0.4 % (0.0-2.0) Sodium Level 147 MMOL/L (136-145) H Potassium Level 3.6 MMOL/L (3.5-5.1) Chloride Level 112 MMOL/L (98-107) H Carbon Dioxide Level 29 MMOL/L (21-32) Anion Gap 6 mmol/L (5-15) Blood Urea Nitrogen 25 mg/dL (7-18) H Creatinine 0.6 MG/DL (0.55-1.30) Estimat Glomerular Filtration Rate > 60 mL/min (>60) Glucose Level 91 MG/DL (74-106) Calcium Level 8.7 MG/DL (8.5-10.1) Phosphorus Level 2.9 MG/DL (2.5-4.9) Magnesium Level 2.0 MG/DL (1.8-2.4) Total Bilirubin 0.3 MG/DL (0.2-1.0) Aspartate Amino Transf (AST/SGOT) 45 U/L (15-37) H Alanine Aminotransferase (ALT/SGPT) 89 U/L (12-78) H Alkaline Phosphatase 129 U/L (46-116) H Total Protein 7.0 G/DL (6.4-8.2) Albumin 1.8 G/DL (3.4-5.0) L Globulin 5.2 g/dL Albumin/Globulin Ratio 0.3 (1.0-2.7) L Plan Problems: (1) Sepsis Assessment & Plan: IV Abx as per ID (2) Abrasion, left hip, initial encounter Assessment & Plan: superficial abrasion of left hip. likely pressure related. limited to skin. stage II. foam dressings. keep off wound. skin protectant. turn q2h. (3) Right foot ulcer Assessment & Plan: right lateral mid foot and distal foot ulcer. mid foot ulcer 2cm and distal ulcer 1cm. no active drainage. some edema of foot but no significant cellulitis. no signs of active infection and likely chronic. no odor. unstageable. xray - Possible soft tissue ulcer overlying the fifth metatarsal head. No plain radiographic evidence of osteomyelitis. No acute bony trauma -foam dressings -skin protectant -will order plain films -keep off wounds -heel protectors -turn q2h. Darion Banks May 09, 2018 11:19
--- NOTE | 2018-05-09 11:59 | Pulmonology Progress Note ---
Assessment/Plan Problems: (1) Aspiration pneumonia (2) Sepsis (3) COPD (chronic obstructive pulmonary disease) (4) Severe protein-calorie malnutrition (5) Dementia Assessment/Plan continue abx check electrolytes respiratory treatment titrate fio2 to sat of 92% dvt porphylaxis Subjective ROS Limited/Unobtainable: No Constitutional: Reports: no symptoms HEENT: Repors: no symptoms Respiratory: Reports: no symptoms Allergies: Coded Allergies: No Known Allergies (Unverified , 05/07/18) Objective Last 24 Hour Vital Signs Date Time Temp Pulse Resp B/P (MAP) Pulse Ox O2 Delivery O2 Flow Rate FiO2 05/09/18 08:41 85 05/09/18 08:20 Room Air 05/09/18 08:00 97.1 64 16 99/67 (78) 98 97.1 05/09/18 04:16 70 05/09/18 04:00 97.0 73 20 96/65 (75) 94 97.0 05/09/18 00:00 97.5 77 20 114/79 (91) 99 97.5 05/08/18 23:20 85 05/08/18 21:00 Room Air 05/08/18 20:00 97.0 74 18 125/67 (86) 94 97.0 05/08/18 18:30 71 05/08/18 16:00 97.0 74 20 108/67 (81) 95 97.0 05/08/18 16:00 85 05/08/18 12:00 97.0 77 20 95/61 (72) 100 97.0 05/08/18 12:00 75 Intake and Output 05/08/18 05/09/18 19:00 07:00 Intake Total 2086.6660 ml Output Total 300 ml Balance 1786.6660 ml Intake Free Water 400 ml IV Total 966.6660 ml Tube Feeding 720 ml Output Urine Total 300 ml General Appearance: cachetic HEENT: normocephalic, atraumatic, anicteric Respiratory/Chest: chest wall non-tender, lungs clear Cardiovascular: normal peripheral pulses, normal rate Abdomen: normal bowel sounds, soft, non tender Genitourinary: normal external genitalia Skin: no rash, no ulcers Microbiology Date/Time Source Procedure Growth Status 05/07/18 13:15 Blood Blood Culture - Preliminary NO GROWTH AFTER 24 HOURS Resulted 05/07/18 13:05 Blood Blood Culture - Preliminary NO GROWTH AFTER 24 HOURS Resulted 05/07/18 13:15 Nasal Nares MRSA Culture - Final Staphylococcus Aureus - Mrsa Complete 05/07/18 05:36 Sputum Induced Gram Stain - Final Resulted 05/07/18 05:36 Sputum Culture - Preliminary Gram Negative Bacillus 1 Resulted 05/07/18 13:30 Urine,Clean Catch Urine Culture - Final Enterococcus Faecalis - Vre Complete 05/07/18 13:15 Rectum VRE Culture - Final Enterococcus Faecalis - Vre Complete 05/07/18 13:15 Rectum - Final NO CARBAPENEM-RESISTANT ENTEROBACTERI... Complete Laboratory Tests 05/08/18 18:55: Vancomycin Level Trough 14.3H 05/09/18 07:35: White Blood Count 6.9, Red Blood Count 3.85L, Hemoglobin 8.6L, Hematocrit 27.7L , Mean Corpuscular Volume 72L, Mean Corpuscular Hemoglobin 22.3L, Mean Corpuscular Hemoglobin Concent 31.0L, Red Cell Distribution Width 15.6H, Platelet Count 155, Mean Platelet Volume 12.3H, Neutrophils (%) (Auto) 60.7, Lymphocytes (%) (Auto) 19.8L, Monocytes (%) (Auto) 4.3, Eosinophils (%) (Auto) 14.8H, Basophils (%) (Auto) 0.4, Sodium Level 147H, Potassium Level 3.6, Chloride Level 112H, Carbon Dioxide Level 29, Anion Gap 6, Blood Urea Nitrogen 25H, Creatinine 0.6, Estimat Glomerular Filtration Rate > 60, Glucose Level 91, Calcium Level 8.7, Phosphorus Level 2.9, Magnesium Level 2.0, Total Bilirubin 0.3, Aspartate Amino Transf (AST/SGOT) 45H, Alanine Aminotransferase (ALT/SGPT) 89H, Alkaline Phosphatase 129H, Total Protein 7.0, Albumin 1.8L, Globulin 5.2, Albumin/Globulin Ratio 0.3L Current Medications Medications (Trade) Dose Ordered Sig/Violette Route PRN Reason Start Time Stop Time Status Last Admin Dose Admin Aspirin (ASA) 81 mg DAILY GT 05/08/18 09:00 06/07/18 08:59 05/09/18 09:45 Atorvastatin Calcium (Lipitor) 20 mg BEDTIME GT 05/07/18 21:00 06/06/18 20:59 05/08/18 20:47 Dextrose (Dextrose 50%) 25 ml STAT PRN IV Hypoglycemia 05/07/18 18:00 06/06/18 17:59 Dextrose (Dextrose 50%) 50 ml STAT PRN IV Hypoglycemia 05/07/18 18:00 06/06/18 17:59 Heparin Sodium (Porcine) (Heparin 5000 units/ml) 5,000 units EVERY 12 HOURS SUBQ 05/07/18 21:00 06/06/18 20:59 05/09/18 09:45 Levetiracetam (Keppra) 750 mg Q12HR GT 05/07/18 21:00 06/06/18 20:59 05/09/18 09:43 Levofloxacin (Levaquin) 750 mg DAILY ORAL 05/08/18 09:00 05/15/18 08:59 05/09/18 09:43 Pantoprazole (Protonix) 40 mg DAILY IVP 05/08/18 09:00 06/07/18 08:59 05/09/18 09:44 Piperacillin Sod/ Tazobactam Sod 3.375 gm/Dextrose 110 ml @ 27.5 mls/hr EVERY 8 HOURS IVPB 05/07/18 22:00 05/12/18 21:59 05/09/18 06:03 Polyethylene Glycol (Miralax) 17 gm DAILY PRN ORAL Constipation 05/07/18 18:00 06/06/18 17:59 Vancomycin HCl (Vanco rx to dose) 1 ea DAILY PRN MISC Per rx protocol 05/07/18 19:15 06/06/18 19:14 Vancomycin HCl 1 gm/Dextrose 275 ml @ 183.708 mls/hr Q8H IVPB 05/08/18 20:00 05/13/18 19:59 05/09/18 04:07 Vitamin D (Vitamin D) 5,000 intlu DAILY GT 05/08/18 09:00 06/07/18 08:59 05/09/18 09:42 Ta Martinez MD May 09, 2018 11:59
[2018-05-09 12:00] VITALS: BP 110/42
--- NOTE | 2018-05-09 12:36 | Infectious Diseases Prog Note ---
Assessment/Plan Assessment/Plan Assessment: Sepsis; improving- 2ry to PNA (HCAP vs Asp PNA), ?UTI -CXR: Positive for bilateral lower lung infiltrates, likely pneumonia' -sp cx p GNR -u/a wbc 5-10, nit neg, leuk +3; ucx >100k VRE (S amp, tetracycline, Linezolid ) Fever/leukocytosis; improving R foot ulcer, no signs of infection -R foot xray: Possible soft tissue ulcer overlying the fifth metatarsal head. No plain radiographic evidence of osteomyelitis. Note, however, limited sensitivity of plain radiographs for such. No acute bony trauma HTN COPD/emphysema dysphagia s/p G-tube GERD seizure disorder Plan: -d/c IV Vanco #3 -Continue Zosyn #3 pending sputum cx and Levaquin #3 for atypical coverage -f/u cx -monitor CBC/CMP, temperatures -f/u sp cx, legionella ag urine -GT care -aspiration precautions -wound care per hosp protocol -CXR am Thank you for this consultation. Will continue to follow along with you. Discussed with RN. Subjective Allergies: Coded Allergies: No Known Allergies (Unverified , 05/07/18) Subjective afebrile in 36hrs leukocytosis resolved Bcx NTD Objective Vital Signs Last 24 Hour Vital Signs Date Time Temp Pulse Resp B/P (MAP) Pulse Ox O2 Delivery O2 Flow Rate FiO2 05/09/18 08:41 85 05/09/18 08:20 Room Air 05/09/18 08:00 97.1 64 16 99/67 (78) 98 97.1 05/09/18 04:16 70 05/09/18 04:00 97.0 73 20 96/65 (75) 94 97.0 05/09/18 00:00 97.5 77 20 114/79 (91) 99 97.5 05/08/18 23:20 85 05/08/18 21:00 Room Air 05/08/18 20:00 97.0 74 18 125/67 (86) 94 97.0 05/08/18 18:30 71 05/08/18 16:00 97.0 74 20 108/67 (81) 95 97.0 05/08/18 16:00 85 Height (Feet): 6 Weight (Pounds): 160 Objective General Appearance: alert, mild distress Head: normocephalic Eyes: bilateral eye normal inspection, bilateral eye PERRL, bilateral eye EOMI ENT: normal ENT inspection, hearing grossly normal, normal pharynx, no angioedema, normal voice, dry mucus membranes Neck: normal inspection, supple, supple/symm/no masses Respiratory: chest non-tender, rhonchi - R>L, chest symmetrical, palpation of chest normal Cardiovascular #1: normal peripheral pulses, regular rate, rhythm Gastrointestinal: normal inspection, non tender, soft, no mass, no guarding, no rebound Genitourinary: normal inspection, no CVA tenderness Skin: normal color, no rash, warm/dry Microbiology Date/Time Source Procedure Growth Status 05/07/18 13:15 Blood Blood Culture - Preliminary NO GROWTH AFTER 24 HOURS Resulted 05/07/18 13:05 Blood Blood Culture - Preliminary NO GROWTH AFTER 24 HOURS Resulted 05/07/18 13:15 Nasal Nares MRSA Culture - Final Staphylococcus Aureus - Mrsa Complete 05/07/18 05:36 Sputum Induced Gram Stain - Final Resulted 05/07/18 05:36 Sputum Culture - Preliminary Gram Negative Bacillus 1 Resulted 05/07/18 13:30 Urine,Clean Catch Urine Culture - Final Enterococcus Faecalis - Vre Complete 05/07/18 13:15 Rectum VRE Culture - Final Enterococcus Faecalis - Vre Complete 05/07/18 13:15 Rectum - Final NO CARBAPENEM-RESISTANT ENTEROBACTERI... Complete Laboratory Tests Test 05/08/18 18:55 05/09/18 07:35 Vancomycin Level Trough 14.3 ug/mL (5.0-12.0) H White Blood Count 6.9 K/UL (4.8-10.8) Red Blood Count 3.85 M/UL (4.70-6.10) L Hemoglobin 8.6 G/DL (14.2-18.0) L Hematocrit 27.7 % (42.0-52.0) L Mean Corpuscular Volume 72 FL (80-99) L Mean Corpuscular Hemoglobin 22.3 PG (27.0-31.0) L Mean Corpuscular Hemoglobin Concent 31.0 G/DL (32.0-36.0) L Red Cell Distribution Width 15.6 % (11.6-14.8) H Platelet Count 155 K/UL (150-450) Mean Platelet Volume 12.3 FL (6.5-10.1) H Neutrophils (%) (Auto) 60.7 % (45.0-75.0) Lymphocytes (%) (Auto) 19.8 % (20.0-45.0) L Monocytes (%) (Auto) 4.3 % (1.0-10.0) Eosinophils (%) (Auto) 14.8 % (0.0-3.0) H Basophils (%) (Auto) 0.4 % (0.0-2.0) Sodium Level 147 MMOL/L (136-145) H Potassium Level 3.6 MMOL/L (3.5-5.1) Chloride Level 112 MMOL/L (98-107) H Carbon Dioxide Level 29 MMOL/L (21-32) Anion Gap 6 mmol/L (5-15) Blood Urea Nitrogen 25 mg/dL (7-18) H Creatinine 0.6 MG/DL (0.55-1.30) Estimat Glomerular Filtration Rate > 60 mL/min (>60) Glucose Level 91 MG/DL (74-106) Calcium Level 8.7 MG/DL (8.5-10.1) Phosphorus Level 2.9 MG/DL (2.5-4.9) Magnesium Level 2.0 MG/DL (1.8-2.4) Total Bilirubin 0.3 MG/DL (0.2-1.0) Aspartate Amino Transf (AST/SGOT) 45 U/L (15-37) H Alanine Aminotransferase (ALT/SGPT) 89 U/L (12-78) H Alkaline Phosphatase 129 U/L (46-116) H Total Protein 7.0 G/DL (6.4-8.2) Albumin 1.8 G/DL (3.4-5.0) L Globulin 5.2 g/dL Albumin/Globulin Ratio 0.3 (1.0-2.7) L Current Medications Medications (Trade) Dose Ordered Sig/Violette Route PRN Reason Start Time Stop Time Status Last Admin Dose Admin Aspirin (ASA) 81 mg DAILY GT 05/08/18 09:00 06/07/18 08:59 05/09/18 09:45 Atorvastatin Calcium (Lipitor) 20 mg BEDTIME GT 05/07/18 21:00 06/06/18 20:59 05/08/18 20:47 Dextrose (Dextrose 50%) 25 ml STAT PRN IV Hypoglycemia 05/07/18 18:00 06/06/18 17:59 Dextrose (Dextrose 50%) 50 ml STAT PRN IV Hypoglycemia 05/07/18 18:00 06/06/18 17:59 Heparin Sodium (Porcine) (Heparin 5000 units/ml) 5,000 units EVERY 12 HOURS SUBQ 05/07/18 21:00 06/06/18 20:59 05/09/18 09:45 Levetiracetam (Keppra) 750 mg Q12HR GT 05/07/18 21:00 06/06/18 20:59 05/09/18 09:43 Levofloxacin (Levaquin) 750 mg DAILY ORAL 05/08/18 09:00 05/15/18 08:59 05/09/18 09:43 Pantoprazole (Protonix) 40 mg DAILY IVP 05/08/18 09:00 06/07/18 08:59 05/09/18 09:44 Piperacillin Sod/ Tazobactam Sod 3.375 gm/Dextrose 110 ml @ 27.5 mls/hr EVERY 8 HOURS IVPB 05/07/18 22:00 05/12/18 21:59 05/09/18 06:03 Polyethylene Glycol (Miralax) 17 gm DAILY PRN ORAL Constipation 05/07/18 18:00 06/06/18 17:59 Vancomycin HCl (Vanco rx to dose) 1 ea DAILY PRN MISC Per rx protocol 05/07/18 19:15 06/06/18 19:14 Vancomycin HCl 1 gm/Dextrose 275 ml @ 183.708 mls/hr Q8H IVPB 05/08/18 20:00 05/13/18 19:59 05/09/18 12:26 Vitamin D (Vitamin D) 5,000 intlu DAILY GT 05/08/18 09:00 06/07/18 08:59 05/09/18 09:42 Crystal Kelley M.D. May 09, 2018 12:36
--- NOTE | 2018-05-09 12:39 | General Progress Note ---
Assessment/Plan Status: stable Assessment/Plan 1. Leukocytosis due to underlying sepsis and septic shock. --> Currently, he is on broad-spectrum antibiotics. --> Appreciate Infectious Disease Service, Surgical Service as well as Pulmonary team for evaluation of underlying pneumonia, he is being treated for that as well. 2. Anemia due to underlying chronic disease. --> Continue to closely monitor for improvement. --> Anemia panel has been reviewed. Will trend CBC daily. --> Hemoglobin goal is above 7. 3. Hypertension. Systolic blood pressure goal is less than 140. 4. Sepsis, secondary to pneumonia. 5. Seizure disorder. No recent activity. 6. Dysphagia, status post gastrostomy tube. The time the note was entered does not necessarily correspond to the time the patient was seen. Subjective Date patient seen: May 09, 2018 ROS Limited/Unobtainable: Yes Hematologic/Lymphatic: Reports: anemia Allergies: Coded Allergies: No Known Allergies (Unverified , 05/07/18) All Systems: reviewed and negative except above Subjective Pt wake and alert. No acute events. Objective Last 24 Hour Vital Signs Date Time Temp Pulse Resp B/P (MAP) Pulse Ox O2 Delivery O2 Flow Rate FiO2 05/09/18 08:41 85 05/09/18 08:20 Room Air 05/09/18 08:00 97.1 64 16 99/67 (78) 98 97.1 05/09/18 04:16 70 05/09/18 04:00 97.0 73 20 96/65 (75) 94 97.0 05/09/18 00:00 97.5 77 20 114/79 (91) 99 97.5 05/08/18 23:20 85 05/08/18 21:00 Room Air 05/08/18 20:00 97.0 74 18 125/67 (86) 94 97.0 05/08/18 18:30 71 05/08/18 16:00 97.0 74 20 108/67 (81) 95 97.0 05/08/18 16:00 85 Intake and Output 05/08/18 05/09/18 19:00 07:00 Intake Total 2086.6660 ml Output Total 300 ml Balance 1786.6660 ml Intake Free Water 400 ml IV Total 966.6660 ml Tube Feeding 720 ml Output Urine Total 300 ml Laboratory Tests 05/08/18 18:55: Vancomycin Level Trough 14.3H 05/09/18 07:35: White Blood Count 6.9, Red Blood Count 3.85L, Hemoglobin 8.6L, Hematocrit 27.7L , Mean Corpuscular Volume 72L, Mean Corpuscular Hemoglobin 22.3L, Mean Corpuscular Hemoglobin Concent 31.0L, Red Cell Distribution Width 15.6H, Platelet Count 155, Mean Platelet Volume 12.3H, Neutrophils (%) (Auto) 60.7, Lymphocytes (%) (Auto) 19.8L, Monocytes (%) (Auto) 4.3, Eosinophils (%) (Auto) 14.8H, Basophils (%) (Auto) 0.4, Sodium Level 147H, Potassium Level 3.6, Chloride Level 112H, Carbon Dioxide Level 29, Anion Gap 6, Blood Urea Nitrogen 25H, Creatinine 0.6, Estimat Glomerular Filtration Rate > 60, Glucose Level 91, Calcium Level 8.7, Phosphorus Level 2.9, Magnesium Level 2.0, Total Bilirubin 0.3, Aspartate Amino Transf (AST/SGOT) 45H, Alanine Aminotransferase (ALT/SGPT) 89H, Alkaline Phosphatase 129H, Total Protein 7.0, Albumin 1.8L, Globulin 5.2, Albumin/Globulin Ratio 0.3L Height (Feet): 6 Weight (Pounds): 160 General Appearance: no apparent distress, alert EENT: PERRL/EOMI Neck: normal alignment Cardiovascular: irregularly irregular Respiratory/Chest: no respiratory distress Abdomen: normal bowel sounds, soft Say Shin MD May 09, 2018 12:38
[2018-05-09 16:00] VITALS: BP 115/66
[2018-05-09] MEDS ORDERED: Miralax 17gm pkt ORAL PRN (16:30)
[2018-05-09] MEDS ORDERED: Miralax 17gm pkt GT PRN (16:30)
[2018-05-09 20:20] VITALS: BP 131/59
[2018-05-09] MEDS: Atorvastatin 20mg tab GT SCH (21:00)
[2018-05-10] VITALS: BP 139/73
[2018-05-10 04:00] VITALS: BP 126/80
[2018-05-10] MEDS: Piperacillin/Tazobactam 3.375 GM in D5W 110 ML IVPB SCH ×4 (04:55→22:00)
[2018-05-10 06:33] LABS: BASOPHILS % (AUTO) 0.5 % (0.0-2.0); EOSINOPHILS % (AUTO) 15.1 % (0.0-3.0); HEMATOCRIT 28.5 % (42.0-52.0); HEMOGLOBIN 9.5 G/DL (14.2-18.0); MEAN CORPUSCULAR VOLUME 73 FL (80-99); MONOCYTES % (AUTO) 3.5 % (1.0-10.0); PLATELET COUNT 187 K/UL (150-450); RED BLOOD COUNT 3.91 M/UL (4.70-6.10); RED CELL DISTRIBUTION WIDTH 16.1 % (11.6-14.8); WHITE BLOOD COUNT 5.9 K/UL (4.8-10.8)
[2018-05-10 06:51] LABS: ALANINE AMINOTRANSFERASE 84 U/L (12-78); ALBUMIN 1.9 G/DL (3.4-5.0); ALBUMIN/GLOBULIN RATIO 0.3 (1.0-2.7); ALKALINE PHOSPHATASE 146 U/L (46-116); ANION GAP 6 mmol/L (5-15); ASPARTATE AMINO TRANSFERASE 41 U/L (15-37); BILIRUBIN,TOTAL 0.3 MG/DL (0.2-1.0); BLOOD UREA NITROGEN 22 mg/dL (7-18); CALCIUM 8.9 MG/DL (8.5-10.1); CARBON DIOXIDE 28 MMOL/L (21-32); CHLORIDE 110 MMOL/L (98-107); CREATININE 0.6 MG/DL (0.55-1.30); POTASSIUM 3.7 MMOL/L (3.5-5.1); SODIUM 144 MMOL/L (136-145)
[2018-05-10 06:57] LABS: PHOSPHORUS 2.9 MG/DL (2.5-4.9)
[2018-05-10 08:00] VITALS: BP 126/73
--- NOTE | 2018-05-10 08:01 | Pulmonology Progress Note ---
Assessment/Plan Assessment/Plan ASSESSMENT Sepsis Aspiration pneumonia (with Escherichia coli ESBL and Staph aureus ) UTI VRE Right foot ulcer COPD/emphysema Dysphagia, G-tube Hypertension Seizure disorder Severe protein calorie malnutrition Dementia Acute kidney injury, resolved Dehydration -resolving Hyponatremia Anemia of chronic disease PLAN OF CARE Med Surg floor abx, ID follows urine cx + VRE blood culture negative sputum culture E.coli ESBL, Staph aureus fup CXR this am with improvement O2 titrate to keep sat above 92% pulmonary toilet x-ray right food no acute bony trauma, no evidence of osteomyelitis strict aspiration precaution, G-tube feeding, monitor tolerance, dietary recommendations implemented in plan of care DVT GI prophylaxis continue aspirin and statin seizure precaution continue Keppra BP monitoring, currently stable, not on any antihypertensive bowel regimen acute kidney injury resolved , likely due to dehydration free water increased as per nephro, follows renal parameters , electrolytes closely monitored ,electrolytes corrected as needed, nephrotoxic avoided monitor HH with goal to keep Hgb above 7 performance management consultant follows wound care as per surgery recommendation supportive care case discussed and evaluated by supervising physician Subjective Allergies: Coded Allergies: No Known Allergies (Unverified , 05/07/18) Subjective leucocytosis resolved, afebrile Objective Last 24 Hour Vital Signs Date Time Temp Pulse Resp B/P (MAP) Pulse Ox O2 Delivery O2 Flow Rate FiO2 05/10/18 04:00 96.9 78 20 126/80 (95) 98 96.9 05/10/18 00:00 97.9 80 20 139/73 (95) 98 97.9 05/09/18 20:22 Room Air 05/09/18 20:20 97.4 65 18 131/59 (83) 99 97.4 05/09/18 16:00 98.8 63 20 115/66 (82) 100 98.8 05/09/18 12:00 97.5 72 20 110/42 (64) 97 97.5 05/09/18 08:41 85 05/09/18 08:20 Room Air 05/09/18 08:00 97.1 64 16 99/67 (78) 98 97.1 Intake and Output 05/09/18 05/10/18 19:00 07:00 Intake Total 700 ml 1165.0 ml Output Total 300 ml 200 ml Balance 400 ml 965.0 ml Intake Free Water 100 ml 400 ml IV Total 165.0 ml Tube Feeding 600 ml 600 ml Output Urine Total 300 ml 200 ml # Bowel Movements 1 1 General Appearance: no acute distress, other - bedridden AA male in NAD HEENT: normocephalic, atraumatic Respiratory/Chest: no respiratory distress, no accessory muscle use, decreased breath sounds Cardiovascular: normal peripheral pulses, normal rate, no JVD Abdomen: normal bowel sounds, soft, non tender, other - G tube Extremities: no edema, pedal pulses normal Neurologic/Psychiatric: abnormal gait - bedriddebn , other - awake, poory responsive Musculoskeletal: atrophy - BLE Microbiology Date/Time Source Procedure Growth Status 05/07/18 13:15 Blood Blood Culture - Preliminary NO GROWTH AFTER 48 HOURS Resulted 05/07/18 13:05 Blood Blood Culture - Preliminary NO GROWTH AFTER 48 HOURS Resulted 05/07/18 13:15 Nasal Nares MRSA Culture - Final Staphylococcus Aureus - Mrsa Complete 05/07/18 13:30 Urine,Clean Catch Urine Culture - Final Enterococcus Faecalis - Vre Complete 05/07/18 13:15 Rectum VRE Culture - Final Enterococcus Faecalis - Vre Complete 05/07/18 13:15 Rectum - Final NO CARBAPENEM-RESISTANT ENTEROBACTERI... Complete Laboratory Tests 05/10/18 05:00: White Blood Count 5.9, Red Blood Count 3.91L, Hemoglobin 9.5L, Hematocrit 28.5L , Mean Corpuscular Volume 73L, Mean Corpuscular Hemoglobin 24.4L, Mean Corpuscular Hemoglobin Concent 33.5, Red Cell Distribution Width 16.1H, Platelet Count 187, Mean Platelet Volume 11.2H, Neutrophils (%) (Auto) 58.0, Lymphocytes (%) (Auto) 23.0, Monocytes (%) (Auto) 3.5, Eosinophils (%) (Auto) 15.1H, Basophils (%) (Auto) 0.5, Sodium Level 144, Potassium Level 3.7, Chloride Level 110H, Carbon Dioxide Level 28, Anion Gap 6, Blood Urea Nitrogen 22H, Creatinine 0.6, Estimat Glomerular Filtration Rate > 60, Glucose Level 102 , Calcium Level 8.9, Phosphorus Level 2.9, Magnesium Level 1.9, Total Bilirubin 0.3, Aspartate Amino Transf (AST/SGOT) 41H, Alanine Aminotransferase (ALT/SGPT) 84H, Alkaline Phosphatase 146H, Total Protein 7.4, Albumin 1.9L, Globulin 5.5, Albumin/Globulin Ratio 0.3L Current Medications Medications (Trade) Dose Ordered Sig/Violette Route PRN Reason Start Time Stop Time Status Last Admin Dose Admin Aspirin (ASA) 81 mg DAILY GT 05/10/18 09:00 06/07/18 08:59 Atorvastatin Calcium (Lipitor) 20 mg BEDTIME GT 05/09/18 21:00 06/06/18 20:59 05/09/18 21:00 Dextrose (Dextrose 50%) 25 ml STAT PRN IV Hypoglycemia 05/09/18 18:00 06/06/18 17:59 Dextrose (Dextrose 50%) 50 ml STAT PRN IV Hypoglycemia 05/09/18 18:00 06/06/18 17:59 Heparin Sodium (Porcine) (Heparin 5000 units/ml) 5,000 units EVERY 12 HOURS SUBQ 05/09/18 21:00 06/06/18 20:59 05/09/18 21:01 Levetiracetam (Keppra) 750 mg Q12HR GT 05/09/18 21:00 06/06/18 20:59 05/09/18 21:00 Levofloxacin (Levaquin) 750 mg DAILY GT 05/10/18 09:00 05/15/18 08:59 Pantoprazole (Protonix) 40 mg DAILY IVP 05/10/18 09:00 06/07/18 08:59 Piperacillin Sod/ Tazobactam Sod 3.375 gm/Dextrose 110 ml @ 27.5 mls/hr EVERY 8 HOURS IVPB 05/09/18 22:00 05/12/18 21:59 05/10/18 04:55 Polyethylene Glycol (Miralax) 17 gm DAILY PRN GT Constipation 05/09/18 16:30 06/08/18 16:29 Vitamin D (Vitamin D) 5,000 intlu DAILY GT 05/10/18 09:00 06/07/18 08:59 Aliza Barr RN REVIEW May 10, 2018 08:01
[2018-05-10] MEDS: Vitamin D 1000 IU Tab GT SCH (08:12)
[2018-05-10] MEDS: Aspirin Baby 81mg GT SCH (08:13)
[2018-05-10] MEDS: levETIRAcetam 500mg/5ml Liquid GT SCH ×2 (08:13→21:09)
[2018-05-10] MEDS: Levofloxacin 500mg tab GT SCH (08:13)
[2018-05-10] MEDS: Heparin 5000 units/ml inj SUBQ SCH ×2 (08:21→21:11)
--- NOTE | 2018-05-10 08:59 | Diagnostic Imaging Report ---
EXAM: XR Chest, 1 View CLINICAL HISTORY: INFECT TECHNIQUE: Frontal view of the chest. COMPARISON: Chest x-ray 05/07/18 FINDINGS: Lungs: Right lower lung airspace disease has slightly improved since prior study. Similar left lower lobe retrocardiac infiltrate. Pleural space: Unremarkable. No pneumothorax. Heart: Unremarkable. No cardiomegaly. Mediastinum: Unremarkable. Bones/joints: Unremarkable. IMPRESSION: Right lower lung airspace disease has slightly improved since prior study. Similar left lower lobe retrocardiac infiltrate.
[2018-05-10] MEDS: Pantoprazole Inj IVP SCH (09:05)
--- NOTE | 2018-05-10 09:05 | Nephrology Progress Note ---
Assessment/Plan Assessment/Plan 1. ANIYAH- resolved. C 2. Hypernatremia- continue free water thru GTube. Resolved, Na 144 3. Dehydration- resolved, free water thru GTube 4. Sepsis- Abx per PCP and ID/Gen Surg Subjective Date patient seen: May 10, 2018 Time patient seen: 09:02 ROS Limited/Unobtainable: Yes Allergies: Coded Allergies: No Known Allergies (Unverified , 05/07/18) Subjective Patient in no acute distress much improved Objective Last 24 Hour Vital Signs Date Time Temp Pulse Resp B/P (MAP) Pulse Ox O2 Delivery O2 Flow Rate FiO2 05/10/18 08:00 97.9 59 20 126/73 (90) 99 97.9 05/10/18 04:00 96.9 78 20 126/80 (95) 98 96.9 05/10/18 00:00 97.9 80 20 139/73 (95) 98 97.9 05/09/18 20:22 Room Air 05/09/18 20:20 97.4 65 18 131/59 (83) 99 97.4 05/09/18 16:00 98.8 63 20 115/66 (82) 100 98.8 05/09/18 12:00 97.5 72 20 110/42 (64) 97 97.5 Intake and Output 05/09/18 05/10/18 19:00 07:00 Intake Total 700 ml 1165.0 ml Output Total 300 ml 200 ml Balance 400 ml 965.0 ml Intake Free Water 100 ml 400 ml IV Total 165.0 ml Tube Feeding 600 ml 600 ml Output Urine Total 300 ml 200 ml # Bowel Movements 1 1 Laboratory Tests 05/10/18 05:00: White Blood Count 5.9, Red Blood Count 3.91L, Hemoglobin 9.5L, Hematocrit 28.5L , Mean Corpuscular Volume 73L, Mean Corpuscular Hemoglobin 24.4L, Mean Corpuscular Hemoglobin Concent 33.5, Red Cell Distribution Width 16.1H, Platelet Count 187, Mean Platelet Volume 11.2H, Neutrophils (%) (Auto) 58.0, Lymphocytes (%) (Auto) 23.0, Monocytes (%) (Auto) 3.5, Eosinophils (%) (Auto) 15.1H, Basophils (%) (Auto) 0.5, Sodium Level 144, Potassium Level 3.7, Chloride Level 110H, Carbon Dioxide Level 28, Anion Gap 6, Blood Urea Nitrogen 22H, Creatinine 0.6, Estimat Glomerular Filtration Rate > 60, Glucose Level 102 , Calcium Level 8.9, Phosphorus Level 2.9, Magnesium Level 1.9, Total Bilirubin 0.3, Aspartate Amino Transf (AST/SGOT) 41H, Alanine Aminotransferase (ALT/SGPT) 84H, Alkaline Phosphatase 146H, Total Protein 7.4, Albumin 1.9L, Globulin 5.5, Albumin/Globulin Ratio 0.3L Height (Feet): 6 Weight (Pounds): 160 General Appearance: WD/WN, no apparent distress EENT: PERRL/EOMI Neck: non-tender, normal alignment Cardiovascular: normal peripheral pulses, normal rate, regular rhythm Respiratory/Chest: lungs clear, normal breath sounds Abdomen: non tender, soft Edema: no edema noted Arm (L), no edema noted Arm (R), no edema noted Leg (L), no edema noted Leg (R), no edema noted Pedal (L), no edema noted Pedal (R), no edema noted Generalized Tommy Aburto M.D. May 10, 2018 09:05
--- NOTE | 2018-05-10 11:51 | General Progress Note ---
Assessment/Plan Status: stable Assessment/Plan 1. Leukocytosis due to underlying sepsis and septic shock. --> Currently, he is on broad-spectrum antibiotics. --> Appreciate Infectious Disease Service, Surgical Service as well as Pulmonary team for evaluation of underlying pneumonia, he is being treated for that as well. 2. Anemia due to underlying chronic disease. --> Continue to closely monitor for improvement. --> Anemia panel has been reviewed. Will trend CBC daily. --> Hemoglobin goal is above 7. 3. Hypertension. Systolic blood pressure goal is less than 140. 4. Sepsis, secondary to pneumonia. 5. Seizure disorder. No recent activity. 6. Dysphagia, status post gastrostomy tube. The time the note was entered does not necessarily correspond to the time the patient was seen. Subjective Date patient seen: May 10, 2018 ROS Limited/Unobtainable: Yes Hematologic/Lymphatic: Reports: anemia Allergies: Coded Allergies: No Known Allergies (Unverified , 05/07/18) All Systems: reviewed and negative except above Subjective Pt wake and alert. No acute events. CXR today shows right lower lung airspace disease has slightly improved since prior study. Objective Last 24 Hour Vital Signs Date Time Temp Pulse Resp B/P (MAP) Pulse Ox O2 Delivery O2 Flow Rate FiO2 05/10/18 08:00 97.9 59 20 126/73 (90) 99 97.9 05/10/18 04:00 96.9 78 20 126/80 (95) 98 96.9 05/10/18 00:00 97.9 80 20 139/73 (95) 98 97.9 05/09/18 20:22 Room Air 05/09/18 20:20 97.4 65 18 131/59 (83) 99 97.4 05/09/18 16:00 98.8 63 20 115/66 (82) 100 98.8 05/09/18 12:00 97.5 72 20 110/42 (64) 97 97.5 Intake and Output 05/09/18 05/10/18 19:00 07:00 Intake Total 700 ml 1165.0 ml Output Total 300 ml 200 ml Balance 400 ml 965.0 ml Intake Free Water 100 ml 400 ml IV Total 165.0 ml Tube Feeding 600 ml 600 ml Output Urine Total 300 ml 200 ml # Bowel Movements 1 1 Laboratory Tests 05/10/18 05:00: White Blood Count 5.9, Red Blood Count 3.91L, Hemoglobin 9.5L, Hematocrit 28.5L , Mean Corpuscular Volume 73L, Mean Corpuscular Hemoglobin 24.4L, Mean Corpuscular Hemoglobin Concent 33.5, Red Cell Distribution Width 16.1H, Platelet Count 187, Mean Platelet Volume 11.2H, Neutrophils (%) (Auto) 58.0, Lymphocytes (%) (Auto) 23.0, Monocytes (%) (Auto) 3.5, Eosinophils (%) (Auto) 15.1H, Basophils (%) (Auto) 0.5, Sodium Level 144, Potassium Level 3.7, Chloride Level 110H, Carbon Dioxide Level 28, Anion Gap 6, Blood Urea Nitrogen 22H, Creatinine 0.6, Estimat Glomerular Filtration Rate > 60, Glucose Level 102 , Calcium Level 8.9, Phosphorus Level 2.9, Magnesium Level 1.9, Total Bilirubin 0.3, Aspartate Amino Transf (AST/SGOT) 41H, Alanine Aminotransferase (ALT/SGPT) 84H, Alkaline Phosphatase 146H, Total Protein 7.4, Albumin 1.9L, Globulin 5.5, Albumin/Globulin Ratio 0.3L Height (Feet): 6 Weight (Pounds): 160 General Appearance: no apparent distress, alert EENT: PERRL/EOMI Neck: normal alignment Cardiovascular: normal peripheral pulses Respiratory/Chest: no respiratory distress Abdomen: soft Say Shin MD May 10, 2018 11:51
[2018-05-10 12:00] VITALS: BP 108/74
--- NOTE | 2018-05-10 12:08 | Infectious Diseases Prog Note ---
Assessment/Plan Assessment/Plan Assessment: Sepsis; resolved- 2ry to PNA (HCAP vs Asp PNA), ?UTI -CXR 05/10: Right lower lung airspace disease has slightly improved since prior study. Similar left lower lobe retrocardiac infiltrate. -CXR: Positive for bilateral lower lung infiltrates, likely pneumonia' -sp cx ESBL E.coli ( S Zosyn, Ertapenem), S. aureus (sensi pending) -u/a wbc 5-10, nit neg, leuk +3; ucx >100k VRE (S amp, tetracycline, Linezolid ) Fever/leukocytosis; resolved R foot ulcer, no signs of infection -R foot xray: Possible soft tissue ulcer overlying the fifth metatarsal head. No plain radiographic evidence of osteomyelitis. Note, however, limited sensitivity of plain radiographs for such. No acute bony trauma HTN COPD/emphysema dysphagia s/p G-tube GERD seizure disorder Plan: -Continue Zosyn #4/10 for PNA and UTI and Levaquin #4/5 for atypical coverage -Reinitiate IV Vancomycin #4 pending S. aureus sensi -low threshold to switch Zosyn to Ertapenem if decompensation - 05/09 SP IV Vanco #3 -f/u cx -monitor CBC/CMP, temperatures -f/u legionella ag urine -GT care -aspiration precautions -wound care per hosp protocol Thank you for this consultation. Will continue to follow along with you. Discussed with RN. Subjective Allergies: Coded Allergies: No Known Allergies (Unverified , 05/07/18) Subjective afebrile in >48hrs no leukocytosis Bcx NTD CXR improved Objective Vital Signs Last 24 Hour Vital Signs Date Time Temp Pulse Resp B/P (MAP) Pulse Ox O2 Delivery O2 Flow Rate FiO2 05/10/18 08:00 97.9 59 20 126/73 (90) 99 97.9 05/10/18 04:00 96.9 78 20 126/80 (95) 98 96.9 05/10/18 00:00 97.9 80 20 139/73 (95) 98 97.9 05/09/18 20:22 Room Air 05/09/18 20:20 97.4 65 18 131/59 (83) 99 97.4 05/09/18 16:00 98.8 63 20 115/66 (82) 100 98.8 Height (Feet): 6 Weight (Pounds): 160 Objective General Appearance: alert, mild distress Head: normocephalic Eyes: bilateral eye normal inspection, bilateral eye PERRL, bilateral eye EOMI ENT: normal ENT inspection, hearing grossly normal, normal pharynx, no angioedema, normal voice, dry mucus membranes Neck: normal inspection, supple, supple/symm/no masses Respiratory: chest non-tender, rhonchi - R>L, chest symmetrical, palpation of chest normal Cardiovascular #1: normal peripheral pulses, regular rate, rhythm Gastrointestinal: normal inspection, non tender, soft, no mass, no guarding, no rebound Genitourinary: normal inspection, no CVA tenderness Skin: normal color, no rash, warm/dry Microbiology Date/Time Source Procedure Growth Status 05/07/18 13:15 Blood Blood Culture - Preliminary NO GROWTH AFTER 48 HOURS Resulted 05/07/18 13:05 Blood Blood Culture - Preliminary NO GROWTH AFTER 48 HOURS Resulted 05/07/18 13:15 Nasal Nares MRSA Culture - Final Staphylococcus Aureus - Mrsa Complete 05/07/18 13:30 Urine,Clean Catch Urine Culture - Final Enterococcus Faecalis - Vre Complete 05/07/18 13:15 Rectum VRE Culture - Final Enterococcus Faecalis - Vre Complete 05/07/18 13:15 Rectum - Final NO CARBAPENEM-RESISTANT ENTEROBACTERI... Complete Laboratory Tests Test 05/10/18 05:00 White Blood Count 5.9 K/UL (4.8-10.8) Red Blood Count 3.91 M/UL (4.70-6.10) L Hemoglobin 9.5 G/DL (14.2-18.0) L Hematocrit 28.5 % (42.0-52.0) L Mean Corpuscular Volume 73 FL (80-99) L Mean Corpuscular Hemoglobin 24.4 PG (27.0-31.0) L Mean Corpuscular Hemoglobin Concent 33.5 G/DL (32.0-36.0) Red Cell Distribution Width 16.1 % (11.6-14.8) H Platelet Count 187 K/UL (150-450) Mean Platelet Volume 11.2 FL (6.5-10.1) H Neutrophils (%) (Auto) 58.0 % (45.0-75.0) Lymphocytes (%) (Auto) 23.0 % (20.0-45.0) Monocytes (%) (Auto) 3.5 % (1.0-10.0) Eosinophils (%) (Auto) 15.1 % (0.0-3.0) H Basophils (%) (Auto) 0.5 % (0.0-2.0) Sodium Level 144 MMOL/L (136-145) Potassium Level 3.7 MMOL/L (3.5-5.1) Chloride Level 110 MMOL/L (98-107) H Carbon Dioxide Level 28 MMOL/L (21-32) Anion Gap 6 mmol/L (5-15) Blood Urea Nitrogen 22 mg/dL (7-18) H Creatinine 0.6 MG/DL (0.55-1.30) Estimat Glomerular Filtration Rate > 60 mL/min (>60) Glucose Level 102 MG/DL (74-106) Calcium Level 8.9 MG/DL (8.5-10.1) Phosphorus Level 2.9 MG/DL (2.5-4.9) Magnesium Level 1.9 MG/DL (1.8-2.4) Total Bilirubin 0.3 MG/DL (0.2-1.0) Aspartate Amino Transf (AST/SGOT) 41 U/L (15-37) H Alanine Aminotransferase (ALT/SGPT) 84 U/L (12-78) H Alkaline Phosphatase 146 U/L (46-116) H Total Protein 7.4 G/DL (6.4-8.2) Albumin 1.9 G/DL (3.4-5.0) L Globulin 5.5 g/dL Albumin/Globulin Ratio 0.3 (1.0-2.7) L Current Medications Medications (Trade) Dose Ordered Sig/Violette Route PRN Reason Start Time Stop Time Status Last Admin Dose Admin Aspirin (ASA) 81 mg DAILY GT 05/10/18 09:00 06/07/18 08:59 05/10/18 08:13 Atorvastatin Calcium (Lipitor) 20 mg BEDTIME GT 05/09/18 21:00 06/06/18 20:59 05/09/18 21:00 Dextrose (Dextrose 50%) 25 ml STAT PRN IV Hypoglycemia 05/09/18 18:00 06/06/18 17:59 Dextrose (Dextrose 50%) 50 ml STAT PRN IV Hypoglycemia 05/09/18 18:00 06/06/18 17:59 Heparin Sodium (Porcine) (Heparin 5000 units/ml) 5,000 units EVERY 12 HOURS SUBQ 05/09/18 21:00 06/06/18 20:59 05/10/18 08:21 Levetiracetam (Keppra) 750 mg Q12HR GT 05/09/18 21:00 06/06/18 20:59 05/10/18 08:13 Levofloxacin (Levaquin) 750 mg DAILY GT 05/10/18 09:00 05/15/18 08:59 05/10/18 08:13 Pantoprazole (Protonix) 40 mg DAILY IVP 05/10/18 09:00 06/07/18 08:59 05/10/18 09:05 Piperacillin Sod/ Tazobactam Sod 3.375 gm/Dextrose 110 ml @ 27.5 mls/hr EVERY 8 HOURS IVPB 05/09/18 22:00 05/12/18 21:59 05/10/18 04:55 Polyethylene Glycol (Miralax) 17 gm DAILY PRN GT Constipation 05/09/18 16:30 06/08/18 16:29 Vitamin D (Vitamin D) 5,000 intlu DAILY GT 05/10/18 09:00 06/07/18 08:59 05/10/18 08:12 Crystal Kelley M.D. May 10, 2018 12:08
--- NOTE | 2018-05-10 14:55 | General Surgery Progress Note ---
General Surgery-Progress Note Subjective Symptoms: improved, tolerating diet, passing flatus, BM Objective Last 24 Hour Vital Signs Date Time Temp Pulse Resp B/P (MAP) Pulse Ox O2 Delivery O2 Flow Rate FiO2 05/10/18 12:00 97.7 68 20 108/74 (85) 100 97.7 05/10/18 09:00 Room Air 05/10/18 08:00 97.9 59 20 126/73 (90) 99 97.9 05/10/18 04:00 96.9 78 20 126/80 (95) 98 96.9 05/10/18 00:00 97.9 80 20 139/73 (95) 98 97.9 05/09/18 20:22 Room Air 05/09/18 20:20 97.4 65 18 131/59 (83) 99 97.4 05/09/18 16:00 98.8 63 20 115/66 (82) 100 98.8 I&O Intake and Output 05/09/18 05/10/18 19:00 07:00 Intake Total 700 ml 1225.0 ml Output Total 300 ml 200 ml Balance 400 ml 1025.0 ml Intake Free Water 100 ml 400 ml IV Total 165.0 ml Tube Feeding 600 ml 660 ml Output Urine Total 300 ml 200 ml # Bowel Movements 1 1 Dressing: dry Wound: clean, dry Drains: none Cardiovascular: RSR Respiratory: clear Abdomen: soft, flat, non-tender, present bowel sounds Extremities: cyanosis Laboratory Tests Test 05/10/18 05:00 White Blood Count 5.9 K/UL (4.8-10.8) Red Blood Count 3.91 M/UL (4.70-6.10) L Hemoglobin 9.5 G/DL (14.2-18.0) L Hematocrit 28.5 % (42.0-52.0) L Mean Corpuscular Volume 73 FL (80-99) L Mean Corpuscular Hemoglobin 24.4 PG (27.0-31.0) L Mean Corpuscular Hemoglobin Concent 33.5 G/DL (32.0-36.0) Red Cell Distribution Width 16.1 % (11.6-14.8) H Platelet Count 187 K/UL (150-450) Mean Platelet Volume 11.2 FL (6.5-10.1) H Neutrophils (%) (Auto) 58.0 % (45.0-75.0) Lymphocytes (%) (Auto) 23.0 % (20.0-45.0) Monocytes (%) (Auto) 3.5 % (1.0-10.0) Eosinophils (%) (Auto) 15.1 % (0.0-3.0) H Basophils (%) (Auto) 0.5 % (0.0-2.0) Sodium Level 144 MMOL/L (136-145) Potassium Level 3.7 MMOL/L (3.5-5.1) Chloride Level 110 MMOL/L (98-107) H Carbon Dioxide Level 28 MMOL/L (21-32) Anion Gap 6 mmol/L (5-15) Blood Urea Nitrogen 22 mg/dL (7-18) H Creatinine 0.6 MG/DL (0.55-1.30) Estimat Glomerular Filtration Rate > 60 mL/min (>60) Glucose Level 102 MG/DL (74-106) Calcium Level 8.9 MG/DL (8.5-10.1) Phosphorus Level 2.9 MG/DL (2.5-4.9) Magnesium Level 1.9 MG/DL (1.8-2.4) Total Bilirubin 0.3 MG/DL (0.2-1.0) Aspartate Amino Transf (AST/SGOT) 41 U/L (15-37) H Alanine Aminotransferase (ALT/SGPT) 84 U/L (12-78) H Alkaline Phosphatase 146 U/L (46-116) H Total Protein 7.4 G/DL (6.4-8.2) Albumin 1.9 G/DL (3.4-5.0) L Globulin 5.5 g/dL Albumin/Globulin Ratio 0.3 (1.0-2.7) L Plan Problems: (1) Sepsis Assessment & Plan: IV Abx as per ID (2) Abrasion, left hip, initial encounter Assessment & Plan: superficial abrasion of left hip. likely pressure related. limited to skin. stage II. foam dressings. keep off wound. skin protectant. turn q2h. (3) Right foot ulcer Assessment & Plan: right lateral mid foot and distal foot ulcer. mid foot ulcer 2cm and distal ulcer 1cm. no active drainage. some edema of foot but no significant cellulitis. no signs of active infection and likely chronic. no odor. unstageable. xray - Possible soft tissue ulcer overlying the fifth metatarsal head. No plain radiographic evidence of osteomyelitis. No acute bony trauma -foam dressings -skin protectant -will order plain films -keep off wounds -heel protectors -turn q2h. Darion Banks May 10, 2018 14:55
[2018-05-10 16:00] VITALS: BP 130/75
[2018-05-10] MEDS ORDERED: Tubing IV Secondary IV ONE (17:55)
[2018-05-10] MEDS ORDERED: NS 275ml ONE (17:55)
[2018-05-10] MEDS: Vancomycin 1gm/D5W 275ml IVPB SCH ×2 (18:28)
[2018-05-10 20:00] VITALS: BP 109/59
[2018-05-10] MEDS: Atorvastatin 20mg tab GT SCH (21:09)
[2018-05-10] MEDS ORDERED: Haloperidol Lactate 5 MG in D5W 55 ML IVPB PRN (21:45)
[2018-05-10] MEDS: LORazepam Inj 2mg/ml 1ml IV PRN (22:44)
[2018-05-11] VITALS: BP 130/70
[2018-05-11] MEDS: Vancomycin 1gm/D5W 275ml IVPB SCH ×6 (02:39→18:19)
[2018-05-11 04:00] VITALS: BP 109/73
[2018-05-11] MEDS: Piperacillin/Tazobactam 3.375 GM in D5W 110 ML IVPB SCH ×3 (06:19→22:09)
[2018-05-11] MEDS: Vitamin D 1000 IU Tab GT SCH (08:07)
[2018-05-11] MEDS: Aspirin Baby 81mg GT SCH (08:07)
[2018-05-11] MEDS: Levofloxacin 500mg tab GT SCH (08:08)
[2018-05-11] MEDS: levETIRAcetam 500mg/5ml Liquid GT SCH ×2 (08:08→21:15)
[2018-05-11] MEDS: Heparin 5000 units/ml inj SUBQ SCH ×2 (08:10→21:15)
[2018-05-11 08:24] VITALS: BP 90/63
--- NOTE | 2018-05-11 08:45 | Pulmonology Progress Note ---
Assessment/Plan Assessment/Plan ASSESSMENT Sepsis Aspiration pneumonia (with Escherichia coli ESBL and Staph aureus ) UTI VRE Right foot ulcer COPD/emphysema Dysphagia, G-tube Hypertension Seizure disorder Severe protein calorie malnutrition Dementia Acute kidney injury, resolved Dehydration -resolving Hyponatremia Anemia of chronic disease PLAN OF CARE Med Surg floor abx, ID follows urine culture +VRE- blood culture negative sputum culture E.coli ESBL, Staph aureus fup CXR this am with improvement O2 titrate to keep sat above 92% pulmonary toilet x-ray right food no acute bony trauma, no evidence of osteomyelitis strict aspiration precaution, G-tube feeding, monitor tolerance, dietary recommendations implemented in plan of care DVT GI prophylaxis continue aspirin and statin seizure precaution continue Keppra BP monitoring, currently stable, not on any antihypertensive bowel regimen acute kidney injury resolved , likely due to dehydration free water increased as per nephro, follows renal parameters , electrolytes closely monitored ,electrolytes corrected as needed, nephrotoxic avoided monitor 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 supportive care case discussed and evaluated by supervising physician Subjective Allergies: Coded Allergies: No Known Allergies (Unverified , 05/07/18) Subjective leucocytosis resolved, afebrile pulse ox stable on o2 via NC Objective Last 24 Hour Vital Signs Date Time Temp Pulse Resp B/P (MAP) Pulse Ox O2 Delivery O2 Flow Rate FiO2 05/11/18 08:24 97.0 78 18 90/63 (72) 100 97.0 05/11/18 04:00 97.2 61 19 109/73 (85) 100 97.2 05/11/18 00:00 98.1 71 17 130/70 (90) 100 98.1 05/10/18 21:00 Room Air 05/10/18 20:00 97.2 61 19 109/59 (76) 100 97.2 05/10/18 16:00 98.6 63 18 130/75 (93) 100 98.6 05/10/18 12:00 97.7 68 20 108/74 (85) 100 97.7 05/10/18 09:00 Room Air Intake and Output 05/10/18 05/11/18 19:00 07:00 Intake Total 800 ml 1381.708 ml Balance 800 ml 1381.708 ml Intake Free Water 200 ml 200 ml IV Total 641.708 ml Tube Feeding 600 ml 540 ml # Voids 11 # Bowel Movements 2 4 Objective General Appearance: no acute distress, other - bedridden AA male in NAD HEENT: normocephalic, atraumatic Respiratory/Chest: no respiratory distress, no accessory muscle use, decreased breath sounds Cardiovascular: normal peripheral pulses, normal rate, no JVD Abdomen: normal bowel sounds, soft, non tender, other - G tube Extremities: no edema, pedal pulses normal Neurologic/Psychiatric: abnormal gait - bedriddebn , other - awake, poory responsive Musculoskeletal: atrophy - BLE Current Medications Medications (Trade) Dose Ordered Sig/Violette Route PRN Reason Start Time Stop Time Status Last Admin Dose Admin Aspirin (ASA) 81 mg DAILY GT 05/10/18 09:00 06/07/18 08:59 05/11/18 08:07 Atorvastatin Calcium (Lipitor) 20 mg BEDTIME GT 05/09/18 21:00 06/06/18 20:59 05/10/18 21:09 Dextrose (Dextrose 50%) 25 ml STAT PRN IV Hypoglycemia 05/09/18 18:00 06/06/18 17:59 Dextrose (Dextrose 50%) 50 ml STAT PRN IV Hypoglycemia 05/09/18 18:00 06/06/18 17:59 Heparin Sodium (Porcine) (Heparin 5000 units/ml) 5,000 units EVERY 12 HOURS SUBQ 05/09/18 21:00 06/06/18 20:59 05/11/18 08:10 Levetiracetam (Keppra) 750 mg Q12HR GT 05/09/18 21:00 06/06/18 20:59 05/11/18 08:08 Levofloxacin (Levaquin) 750 mg DAILY GT 05/10/18 09:00 05/15/18 08:59 05/11/18 08:08 Lorazepam (Ativan 2mg/ml 1ml) 1 mg Q4H PRN IV For Anxiety 05/10/18 21:45 05/17/18 21:44 05/10/18 22:44 Pantoprazole (Protonix) 40 mg DAILY IVP 05/10/18 09:00 06/07/18 08:59 05/10/18 09:05 Piperacillin Sod/ Tazobactam Sod 3.375 gm/Dextrose 110 ml @ 27.5 mls/hr EVERY 8 HOURS IVPB 05/09/18 22:00 05/12/18 21:59 05/11/18 06:19 Polyethylene Glycol (Miralax) 17 gm DAILY PRN GT Constipation 05/09/18 16:30 06/08/18 16:29 Vancomycin HCl (Vanco rx to dose) 1 ea DAILY PRN MISC Per rx protocol 05/10/18 12:15 06/09/18 12:14 Vancomycin HCl 1 gm/Dextrose 275 ml @ 183.708 mls/hr Q8H IVPB 05/10/18 18:00 05/15/18 17:59 05/11/18 02:39 Vitamin D (Vitamin D) 5,000 intlu DAILY GT 05/10/18 09:00 06/07/18 08:59 05/11/18 08:07 Aliza Barr [employer]ATE [employer]ER May 11, 2018 08:45
[2018-05-11] MEDS: Pantoprazole Inj IVP SCH (09:08)
--- NOTE | 2018-05-11 09:29 | Nephrology Progress Note ---
Assessment/Plan Assessment/Plan 1. ANIYAH- resolved. Cr normal 2. Hypernatremia- continue free water thru GTube. 3. Dehydration- resolved 4. Sepsis- Abx per PCP and ID/Gen Surg AM labs pending Subjective Date patient seen: May 11, 2018 Time patient seen: 09:26 ROS Limited/Unobtainable: Yes Allergies: Coded Allergies: No Known Allergies (Unverified , 05/07/18) Subjective Patient in no acute distress, stable Objective Last 24 Hour Vital Signs Date Time Temp Pulse Resp B/P (MAP) Pulse Ox O2 Delivery O2 Flow Rate FiO2 05/11/18 08:24 97.0 78 18 90/63 (72) 100 97.0 05/11/18 04:00 97.2 61 19 109/73 (85) 100 97.2 05/11/18 00:00 98.1 71 17 130/70 (90) 100 98.1 05/10/18 21:00 Room Air 05/10/18 20:00 97.2 61 19 109/59 (76) 100 97.2 05/10/18 16:00 98.6 63 18 130/75 (93) 100 98.6 05/10/18 12:00 97.7 68 20 108/74 (85) 100 97.7 Intake and Output 05/10/18 05/11/18 19:00 07:00 Intake Total 800 ml 1381.708 ml Balance 800 ml 1381.708 ml Intake Free Water 200 ml 200 ml IV Total 641.708 ml Tube Feeding 600 ml 540 ml # Voids 11 # Bowel Movements 2 4 Height (Feet): 6 Weight (Pounds): 160 General Appearance: WD/WN, no apparent distress EENT: PERRL/EOMI Neck: non-tender, normal alignment Cardiovascular: normal rate, regular rhythm Respiratory/Chest: chest wall non-tender, lungs clear Abdomen: normal bowel sounds, non tender, soft Edema: no edema noted Arm (L), no edema noted Arm (R), no edema noted Leg (L), no edema noted Leg (R), no edema noted Pedal (L), no edema noted Pedal (R), no edema noted Generalized Tommy Aburto M.D. May 11, 2018 09:29
[2018-05-11 10:06] LABS: ANION GAP 4 mmol/L (5-15); BLOOD UREA NITROGEN 14 mg/dL (7-18); CALCIUM 8.6 MG/DL (8.5-10.1); CARBON DIOXIDE 29 MMOL/L (21-32); CHLORIDE 108 MMOL/L (98-107); CREATININE 0.6 MG/DL (0.55-1.30); POTASSIUM 3.6 MMOL/L (3.5-5.1); SODIUM 141 MMOL/L (136-145)
[2018-05-11 12:22] VITALS: BP 98/62
--- NOTE | 2018-05-11 12:51 | General Surgery Progress Note ---
General Surgery-Progress Note Subjective Additional Comments no acute events. moving around in bed. Objective Last 24 Hour Vital Signs Date Time Temp Pulse Resp B/P (MAP) Pulse Ox O2 Delivery O2 Flow Rate FiO2 05/11/18 12:22 96.8 85 18 98/62 (74) 100 96.8 05/11/18 09:00 Room Air 05/11/18 08:24 97.0 78 18 90/63 (72) 100 97.0 05/11/18 04:00 97.2 61 19 109/73 (85) 100 97.2 05/11/18 00:00 98.1 71 17 130/70 (90) 100 98.1 05/10/18 21:00 Room Air 05/10/18 20:00 97.2 61 19 109/59 (76) 100 97.2 05/10/18 16:00 98.6 63 18 130/75 (93) 100 98.6 I&O Intake and Output 05/10/18 05/11/18 19:00 07:00 Intake Total 800 ml 1441.708 ml Balance 800 ml 1441.708 ml Intake Free Water 200 ml 200 ml IV Total 641.708 ml Tube Feeding 600 ml 600 ml # Voids 11 # Bowel Movements 2 4 Wound: dry Drains: other Cardiovascular: RSR Respiratory: clear Abdomen: soft, flat, non-tender, present bowel sounds Extremities: cyanosis, no edema, no tenderness Laboratory Tests Test 05/11/18 09:35 Sodium Level 141 MMOL/L (136-145) Potassium Level 3.6 MMOL/L (3.5-5.1) Chloride Level 108 MMOL/L (98-107) H Carbon Dioxide Level 29 MMOL/L (21-32) Anion Gap 4 mmol/L (5-15) L Blood Urea Nitrogen 14 mg/dL (7-18) Creatinine 0.6 MG/DL (0.55-1.30) Estimat Glomerular Filtration Rate > 60 mL/min (>60) Glucose Level 104 MG/DL (74-106) Calcium Level 8.6 MG/DL (8.5-10.1) Plan Problems: (1) Sepsis Assessment & Plan: IV Abx as per ID (2) Abrasion, left hip, initial encounter Assessment & Plan: superficial abrasion of left hip. likely pressure related. limited to skin. stage II. foam dressings. keep off wound. skin protectant. turn q2h. (3) Right foot ulcer Assessment & Plan: right lateral mid foot and distal foot ulcer. mid foot ulcer 2cm and distal ulcer 1cm. no active drainage. some edema of foot but no significant cellulitis. no signs of active infection and likely chronic. no odor. unstageable. xray - Possible soft tissue ulcer overlying the fifth metatarsal head. No plain radiographic evidence of osteomyelitis. No acute bony trauma -foam dressings -skin protectant -will order plain films -keep off wounds -heel protectors -turn q2h. Darion Banks May 11, 2018 12:51
[2018-05-11 16:01] VITALS: BP 121/77
[2018-05-11] MEDS ORDERED: Tubing IV Secondary IV ONE (16:02)
--- NOTE | 2018-05-11 17:50 | General Progress Note ---
Assessment/Plan Status: unchanged Assessment/Plan #. Leukocytosis due to underlying sepsis and septic shock. Currently better --> Currently, he is on broad-spectrum antibiotics. --> Appreciate Infectious Disease Service, Surgical Service as well as Pulmonary team for evaluation of underlying pneumonia, he is being treated for that as well. #. Anemia due to underlying chronic disease. --> Continue to closely monitor for improvement. --> Anemia panel has been reviewed. Will trend CBC daily. --> Hemoglobin goal is above 7. #. Coagulopathy likely related to decreased vit k production --> no bleeding diathesis noted #. Hypertension. Systolic blood pressure goal is less than 140. #. Sepsis, secondary to pneumonia. #. Seizure disorder. No recent activity. #. Dysphagia, status post gastrostomy tube. The time the note was entered does not necessarily correspond to the time the patient was seen. Subjective Date patient seen: May 11, 2018 ROS Limited/Unobtainable: Yes Hematologic/Lymphatic: Reports: anemia Allergies: Coded Allergies: No Known Allergies (Unverified , 05/07/18) All Systems: reviewed and negative except above Subjective Pt a/o x1. No acute events. Objective Last 24 Hour Vital Signs Date Time Temp Pulse Resp B/P (MAP) Pulse Ox O2 Delivery O2 Flow Rate FiO2 05/11/18 16:01 97.3 64 18 121/77 (92) 97 97.3 05/11/18 12:22 96.8 85 18 98/62 (74) 100 96.8 05/11/18 09:00 Room Air 05/11/18 08:24 97.0 78 18 90/63 (72) 100 97.0 05/11/18 04:00 97.2 61 19 109/73 (85) 100 97.2 05/11/18 00:00 98.1 71 17 130/70 (90) 100 98.1 05/10/18 21:00 Room Air 05/10/18 20:00 97.2 61 19 109/59 (76) 100 97.2 Intake and Output 05/10/18 05/11/18 19:00 07:00 Intake Total 800 ml 1441.708 ml Balance 800 ml 1441.708 ml Intake Free Water 200 ml 200 ml IV Total 641.708 ml Tube Feeding 600 ml 600 ml # Voids 11 # Bowel Movements 2 4 Laboratory Tests 05/11/18 09:35: Sodium Level 141, Potassium Level 3.6, Chloride Level 108H, Carbon Dioxide Level 29, Anion Gap 4L, Blood Urea Nitrogen 14, Creatinine 0.6, Estimat Glomerular Filtration Rate > 60, Glucose Level 104, Calcium Level 8.6 05/11/18 17:00: Vancomycin Level Trough [Pending] Height (Feet): 6 Weight (Pounds): 160 General Appearance: no apparent distress, lethargic EENT: PERRL/EOMI Neck: normal alignment Cardiovascular: normal peripheral pulses Respiratory/Chest: no respiratory distress Abdomen: soft Say Shin MD May 11, 2018 17:50
[2018-05-11 19:48] VITALS: BP 140/77
[2018-05-11] MEDS: Atorvastatin 20mg tab GT SCH (21:14)
[2018-05-11] MEDS: DiphenhydrAMINE 50mg/ml Inj IVP PRN (22:09)
[2018-05-12 00:27] VITALS: BP 154/86
[2018-05-12] MEDS: Vancomycin 1gm/D5W 275ml IVPB SCH ×6 (02:10→18:12)
[2018-05-12 04:00] VITALS: BP 134/77
[2018-05-12] MEDS: Piperacillin/Tazobactam 3.375 GM in D5W 110 ML IVPB SCH ×3 (05:40→20:39)
[2018-05-12 07:50] LABS: ANION GAP 5 mmol/L (5-15); BLOOD UREA NITROGEN 10 mg/dL (7-18); CALCIUM 8.9 MG/DL (8.5-10.1); CARBON DIOXIDE 28 MMOL/L (21-32); CHLORIDE 107 MMOL/L (98-107); CREATININE 0.7 MG/DL (0.55-1.30); POTASSIUM 3.5 MMOL/L (3.5-5.1); SODIUM 140 MMOL/L (136-145)
[2018-05-12 08:00] VITALS: BP 106/71
[2018-05-12] MEDS: levETIRAcetam 500mg/5ml Liquid GT SCH ×2 (08:18→20:39)
[2018-05-12] MEDS: Levofloxacin 500mg tab GT SCH (08:18)
[2018-05-12] MEDS: Vitamin D 1000 IU Tab GT SCH (08:19)
[2018-05-12] MEDS: Aspirin Baby 81mg GT SCH (08:19)
[2018-05-12] MEDS: Heparin 5000 units/ml inj SUBQ SCH ×2 (08:28→20:40)
--- NOTE | 2018-05-12 08:43 | Nephrology Progress Note ---
Assessment/Plan Assessment/Plan 1. ANIYAH- resolved. 2. Hypernatremia- continue free water thru GTube. 3. Dehydration- resolved 4. Sepsis- Abx per PCP and ID/Gen Surg Appreciate consult. Plz call back if needed. Renal issues corrected and resolved Subjective Date patient seen: May 12, 2018 Time patient seen: 08:42 ROS Limited/Unobtainable: Yes Allergies: Coded Allergies: No Known Allergies (Unverified , 05/07/18) Subjective Patient in no acute distress. Objective Last 24 Hour Vital Signs Date Time Temp Pulse Resp B/P (MAP) Pulse Ox O2 Delivery O2 Flow Rate FiO2 05/12/18 04:00 97.9 70 17 134/77 (96) 100 97.9 05/12/18 00:27 98.2 78 20 154/86 (108) 93 98.2 05/11/18 21:00 Room Air 05/11/18 19:48 98.1 62 20 140/77 (98) 100 98.1 05/11/18 16:01 97.3 64 18 121/77 (92) 97 97.3 05/11/18 12:22 96.8 85 18 98/62 (74) 100 96.8 05/11/18 09:00 Room Air Intake and Output 05/11/18 05/12/18 19:00 07:00 Intake Total 1282.500 ml 972.5 ml Output Total 4 ml Balance 1282.500 ml 968.5 ml Intake Free Water 330 ml 350 ml IV Total 412.500 ml 82.5 ml Tube Feeding 540 ml 540 ml Output Urine Total 4 ml # Voids 1 # Bowel Movements 1 Laboratory Tests 05/11/18 09:35: Sodium Level 141, Potassium Level 3.6, Chloride Level 108H, Carbon Dioxide Level 29, Anion Gap 4L, Blood Urea Nitrogen 14, Creatinine 0.6, Estimat Glomerular Filtration Rate > 60, Glucose Level 104, Calcium Level 8.6 05/11/18 17:00: Vancomycin Level Trough 19.9H 05/12/18 06:40: Sodium Level 140, Potassium Level 3.5, Chloride Level 107, Carbon Dioxide Level 28, Anion Gap 5, Blood Urea Nitrogen 10, Creatinine 0.7, Estimat Glomerular Filtration Rate > 60, Glucose Level 91, Calcium Level 8.9 Height (Feet): 6 Weight (Pounds): 160 De Tiarra,Tommy M.D. May 12, 2018 08:43
[2018-05-12] MEDS: Pantoprazole Inj IVP SCH (09:23)
--- NOTE | 2018-05-12 10:57 | Infectious Diseases Prog Note ---
Assessment/Plan Assessment/Plan Sepsis; resolved- 2ry to PNA (HCAP vs Asp PNA), ?UTI -CXR 05/10: Right lower lung airspace disease has slightly improved since prior study. Similar left lower lobe retrocardiac infiltrate. -CXR: Positive for bilateral lower lung infiltrates, likely pneumonia' -sp cx ESBL E.coli ( S Zosyn, Ertapenem), S. aureus (sensi pending) -u/a wbc 5-10, nit neg, leuk +3; ucx >100k VRE (S amp, tetracycline, Linezolid ) Fever/leukocytosis; resolved R foot ulcer, no signs of infection -R foot xray: Possible soft tissue ulcer overlying the fifth metatarsal head. No plain radiographic evidence of osteomyelitis. Note, however, limited sensitivity of plain radiographs for such. No acute bony trauma HTN COPD/emphysema dysphagia s/p G-tube GERD seizure disorder Plan: -Continue Vanco # 6/10, Zosyn #6/10 for PNA and UTI -low threshold to switch Zosyn to Ertapenem if decompensation - 05/12/18 SP Levaquin #6/5 for atypical coverage - 05/09 SP IV Vanco #3 -f/u cx -monitor CBC/CMP, temperatures -f/u legionella ag urine -GT care -aspiration precautions -wound care per hosp protocol Thank you for this consultation. Will continue to follow along with you. Subjective Allergies: Coded Allergies: No Known Allergies (Unverified , 05/07/18) Subjective Patient nonverbal with trach in place On RA Objective Vital Signs Last 24 Hour Vital Signs Date Time Temp Pulse Resp B/P (MAP) Pulse Ox O2 Delivery O2 Flow Rate FiO2 05/12/18 08:00 97.0 66 18 106/71 (83) 99 97.0 05/12/18 04:00 97.9 70 17 134/77 (96) 100 97.9 05/12/18 00:27 98.2 78 20 154/86 (108) 93 98.2 05/11/18 21:00 Room Air 05/11/18 19:48 98.1 62 20 140/77 (98) 100 98.1 05/11/18 16:01 97.3 64 18 121/77 (92) 97 97.3 05/11/18 12:22 96.8 85 18 98/62 (74) 100 96.8 Height (Feet): 6 Weight (Pounds): 160 Objective General Appearance: alert, mild distress Head: normocephalic, Eyes: bilateral eye normal inspection, bilateral eye PERRL, bilateral eye EOMI ENT: normal ENT inspection, hearing grossly normal, normal pharynx, no angioedema, normal voice, dry mucus membranes Neck: normal inspection, supple, supple/symm/no masses, Trached Respiratory: chest non-tender, rhonchi - R>L, chest symmetrical, palpation of chest normal Cardiovascular #1: normal peripheral pulses, regular rate, rhythm Gastrointestinal: normal inspection, non tender, soft, no mass, no guarding, no rebound Genitourinary: normal inspection, no CVA tenderness Skin: normal color, no rash, warm/dry Laboratory Tests Test 05/11/18 17:00 05/12/18 06:40 Vancomycin Level Trough 19.9 ug/mL (5.0-12.0) H Sodium Level 140 MMOL/L (136-145) Potassium Level 3.5 MMOL/L (3.5-5.1) Chloride Level 107 MMOL/L (98-107) Carbon Dioxide Level 28 MMOL/L (21-32) Anion Gap 5 mmol/L (5-15) Blood Urea Nitrogen 10 mg/dL (7-18) Creatinine 0.7 MG/DL (0.55-1.30) Estimat Glomerular Filtration Rate > 60 mL/min (>60) Glucose Level 91 MG/DL (74-106) Calcium Level 8.9 MG/DL (8.5-10.1) Current Medications Medications (Trade) Dose Ordered Sig/Violette Route PRN Reason Start Time Stop Time Status Last Admin Dose Admin Aspirin (ASA) 81 mg DAILY GT 05/10/18 09:00 06/07/18 08:59 05/12/18 08:19 Atorvastatin Calcium (Lipitor) 20 mg BEDTIME GT 05/09/18 21:00 06/06/18 20:59 05/11/18 21:14 Dextrose (Dextrose 50%) 25 ml STAT PRN IV Hypoglycemia 05/09/18 18:00 06/06/18 17:59 Dextrose (Dextrose 50%) 50 ml STAT PRN IV Hypoglycemia 05/09/18 18:00 06/06/18 17:59 Diphenhydramine HCl (Benadryl) 25 mg Q6H PRN IVP Itching 05/11/18 21:30 06/10/18 21:29 05/11/18 22:09 Heparin Sodium (Porcine) (Heparin 5000 units/ml) 5,000 units EVERY 12 HOURS SUBQ 05/09/18 21:00 06/06/18 20:59 05/12/18 08:28 Levetiracetam (Keppra) 750 mg Q12HR GT 05/09/18 21:00 06/06/18 20:59 05/12/18 08:18 Levofloxacin (Levaquin) 750 mg DAILY GT 05/10/18 09:00 05/15/18 08:59 05/12/18 08:18 Lorazepam (Ativan 2mg/ml 1ml) 1 mg Q4H PRN IV For Anxiety 05/10/18 21:45 05/17/18 21:44 05/10/18 22:44 Pantoprazole (Protonix) 40 mg DAILY IVP 05/10/18 09:00 06/07/18 08:59 05/12/18 09:23 Piperacillin Sod/ Tazobactam Sod 3.375 gm/Dextrose 110 ml @ 27.5 mls/hr EVERY 8 HOURS IVPB 05/09/18 22:00 05/16/18 21:59 05/12/18 05:40 Polyethylene Glycol (Miralax) 17 gm DAILY PRN GT Constipation 05/09/18 16:30 06/08/18 16:29 Vancomycin HCl (Vanco rx to dose) 1 ea DAILY PRN MISC Per rx protocol 05/10/18 12:15 06/09/18 12:14 Vancomycin HCl 1 gm/Dextrose 275 ml @ 183.708 mls/hr Q8H IVPB 05/10/18 18:00 05/15/18 17:59 05/12/18 02:10 Vitamin D (Vitamin D) 5,000 intlu DAILY GT 05/10/18 09:00 06/07/18 08:59 05/12/18 08:19 Donovan Sheikh M.D. May 12, 2018 10:57
[2018-05-12 12:00] VITALS: BP 105/68
--- NOTE | 2018-05-12 14:31 | General Progress Note ---
Assessment/Plan Status: stable Assessment/Plan #. Leukocytosis due to underlying sepsis and septic shock. Currently better. --> Currently, he is on broad-spectrum antibiotics. --> Appreciate Infectious Disease Service, Surgical Service as well as Pulmonary team for evaluation of underlying pneumonia, he is being treated for that as well. #. Anemia due to underlying chronic disease. --> Continue to closely monitor for improvement. --> Anemia panel has been reviewed. Will trend CBC daily. --> Hemoglobin goal is above 7. #. Coagulopathy likely related to decreased vit k production --> no bleeding diathesis noted #. Hypertension. Systolic blood pressure goal is less than 140. #. Sepsis, secondary to pneumonia. #. Seizure disorder. No recent activity. #. Dysphagia, status post gastrostomy tube. The time the note was entered does not necessarily correspond to the time the patient was seen. Subjective Date patient seen: May 12, 2018 ROS Limited/Unobtainable: Yes Hematologic/Lymphatic: Reports: anemia Allergies: Coded Allergies: No Known Allergies (Unverified , 05/07/18) All Systems: reviewed and negative except above Subjective Pt awake and alert. No acute events. Objective Last 24 Hour Vital Signs Date Time Temp Pulse Resp B/P (MAP) Pulse Ox O2 Delivery O2 Flow Rate FiO2 05/12/18 12:00 97.5 71 18 105/68 (80) 100 97.5 05/12/18 09:00 Room Air 05/12/18 08:00 97.0 66 18 106/71 (83) 99 97.0 05/12/18 04:00 97.9 70 17 134/77 (96) 100 97.9 05/12/18 00:27 98.2 78 20 154/86 (108) 93 98.2 05/11/18 21:00 Room Air 05/11/18 19:48 98.1 62 20 140/77 (98) 100 98.1 05/11/18 16:01 97.3 64 18 121/77 (92) 97 97.3 Intake and Output 05/11/18 05/12/18 19:00 07:00 Intake Total 1282.500 ml 1032.5 ml Output Total 4 ml Balance 1282.500 ml 1028.5 ml Intake Free Water 330 ml 350 ml IV Total 412.500 ml 82.5 ml Tube Feeding 540 ml 600 ml Output Urine Total 4 ml # Voids 1 # Bowel Movements 1 Laboratory Tests 05/11/18 17:00: Vancomycin Level Trough 19.9H 05/12/18 06:40: Sodium Level 140, Potassium Level 3.5, Chloride Level 107, Carbon Dioxide Level 28, Anion Gap 5, Blood Urea Nitrogen 10, Creatinine 0.7, Estimat Glomerular Filtration Rate > 60, Glucose Level 91, Calcium Level 8.9 Height (Feet): 6 Weight (Pounds): 160 General Appearance: no apparent distress EENT: PERRL/EOMI Neck: normal alignment Cardiovascular: normal peripheral pulses Respiratory/Chest: no respiratory distress Abdomen: soft Say Shin MD May 12, 2018 14:31
--- NOTE | 2018-05-12 15:38 | Pulmonology Progress Note ---
Assessment/Plan Problems: (1) Aspiration pneumonia (2) Sepsis (3) COPD (chronic obstructive pulmonary disease) (4) Severe protein-calorie malnutrition (5) Dementia Assessment/Plan social service consult for plan of care and code status continue abx check electrolytes respiratory treatment titrate fio2 to sat of 92% dvt porphylaxis Subjective ROS Limited/Unobtainable: No Constitutional: Reports: no symptoms Respiratory: Reports: no symptoms Allergies: Coded Allergies: No Known Allergies (Unverified , 05/07/18) Objective Last 24 Hour Vital Signs Date Time Temp Pulse Resp B/P (MAP) Pulse Ox O2 Delivery O2 Flow Rate FiO2 05/12/18 12:00 97.5 71 18 105/68 (80) 100 97.5 05/12/18 09:00 Room Air 05/12/18 08:00 97.0 66 18 106/71 (83) 99 97.0 05/12/18 04:00 97.9 70 17 134/77 (96) 100 97.9 05/12/18 00:27 98.2 78 20 154/86 (108) 93 98.2 05/11/18 21:00 Room Air 05/11/18 19:48 98.1 62 20 140/77 (98) 100 98.1 05/11/18 16:01 97.3 64 18 121/77 (92) 97 97.3 Intake and Output 05/11/18 05/12/18 19:00 07:00 Intake Total 1282.500 ml 1032.5 ml Output Total 4 ml Balance 1282.500 ml 1028.5 ml Intake Free Water 330 ml 350 ml IV Total 412.500 ml 82.5 ml Tube Feeding 540 ml 600 ml Output Urine Total 4 ml # Voids 1 # Bowel Movements 1 General Appearance: WD/WN HEENT: normocephalic, atraumatic Respiratory/Chest: chest wall non-tender, lungs clear Cardiovascular: normal peripheral pulses, normal rate Abdomen: normal bowel sounds, soft, non tender Extremities: no clubbing Laboratory Tests 05/11/18 17:00: Vancomycin Level Trough 19.9H 05/12/18 06:40: Sodium Level 140, Potassium Level 3.5, Chloride Level 107, Carbon Dioxide Level 28, Anion Gap 5, Blood Urea Nitrogen 10, Creatinine 0.7, Estimat Glomerular Filtration Rate > 60, Glucose Level 91, Calcium Level 8.9 Current Medications Medications (Trade) Dose Ordered Sig/Violette Route PRN Reason Start Time Stop Time Status Last Admin Dose Admin Aspirin (ASA) 81 mg DAILY GT 05/10/18 09:00 06/07/18 08:59 05/12/18 08:19 Atorvastatin Calcium (Lipitor) 20 mg BEDTIME GT 05/09/18 21:00 06/06/18 20:59 05/11/18 21:14 Dextrose (Dextrose 50%) 25 ml STAT PRN IV Hypoglycemia 05/09/18 18:00 06/06/18 17:59 Dextrose (Dextrose 50%) 50 ml STAT PRN IV Hypoglycemia 05/09/18 18:00 06/06/18 17:59 Diphenhydramine HCl (Benadryl) 25 mg Q6H PRN IVP Itching 05/11/18 21:30 06/10/18 21:29 05/11/18 22:09 Heparin Sodium (Porcine) (Heparin 5000 units/ml) 5,000 units EVERY 12 HOURS SUBQ 05/09/18 21:00 06/06/18 20:59 05/12/18 08:28 Levetiracetam (Keppra) 750 mg Q12HR GT 05/09/18 21:00 06/06/18 20:59 05/12/18 08:18 Lorazepam (Ativan 2mg/ml 1ml) 1 mg Q4H PRN IV For Anxiety 05/10/18 21:45 05/17/18 21:44 05/10/18 22:44 Pantoprazole (Protonix) 40 mg DAILY IVP 05/10/18 09:00 06/07/18 08:59 05/12/18 09:23 Piperacillin Sod/ Tazobactam Sod 3.375 gm/Dextrose 110 ml @ 27.5 mls/hr EVERY 8 HOURS IVPB 05/09/18 22:00 05/16/18 21:59 05/12/18 14:01 Polyethylene Glycol (Miralax) 17 gm DAILY PRN GT Constipation 05/09/18 16:30 06/08/18 16:29 Vancomycin HCl (Vanco rx to dose) 1 ea DAILY PRN MISC Per rx protocol 05/10/18 12:15 06/09/18 12:14 Vancomycin HCl 1 gm/Dextrose 275 ml @ 183.708 mls/hr Q8H IVPB 05/10/18 18:00 05/15/18 17:59 05/12/18 10:54 Vitamin D (Vitamin D) 5,000 intlu DAILY GT 05/10/18 09:00 06/07/18 08:59 05/12/18 08:19 Ta Martinez MD May 12, 2018 15:38
[2018-05-12 16:00] VITALS: BP 131/86
--- NOTE | 2018-05-12 17:14 | General Surgery Progress Note ---
General Surgery-Progress Note Subjective Symptoms: improved, tolerating diet, passing flatus, BM Objective Last 24 Hour Vital Signs Date Time Temp Pulse Resp B/P (MAP) Pulse Ox O2 Delivery O2 Flow Rate FiO2 05/12/18 16:00 96.5 88 18 131/86 (101) 94 96.5 05/12/18 12:00 97.5 71 18 105/68 (80) 100 97.5 05/12/18 09:00 Room Air 05/12/18 08:00 97.0 66 18 106/71 (83) 99 97.0 05/12/18 04:00 97.9 70 17 134/77 (96) 100 97.9 05/12/18 00:27 98.2 78 20 154/86 (108) 93 98.2 05/11/18 21:00 Room Air 05/11/18 19:48 98.1 62 20 140/77 (98) 100 98.1 I&O Intake and Output 05/11/18 05/12/18 19:00 07:00 Intake Total 1282.500 ml 1032.5 ml Output Total 4 ml Balance 1282.500 ml 1028.5 ml Intake Free Water 330 ml 350 ml IV Total 412.500 ml 82.5 ml Tube Feeding 540 ml 600 ml Output Urine Total 4 ml # Voids 1 # Bowel Movements 1 Wound: clean, dry Drains: none Cardiovascular: RSR Respiratory: clear Abdomen: soft, non-tender, present bowel sounds Extremities: other Laboratory Tests Test 05/12/18 06:40 Sodium Level 140 MMOL/L (136-145) Potassium Level 3.5 MMOL/L (3.5-5.1) Chloride Level 107 MMOL/L (98-107) Carbon Dioxide Level 28 MMOL/L (21-32) Anion Gap 5 mmol/L (5-15) Blood Urea Nitrogen 10 mg/dL (7-18) Creatinine 0.7 MG/DL (0.55-1.30) Estimat Glomerular Filtration Rate > 60 mL/min (>60) Glucose Level 91 MG/DL (74-106) Calcium Level 8.9 MG/DL (8.5-10.1) Plan Problems: (1) Sepsis Assessment & Plan: IV Abx as per ID (2) Abrasion, left hip, initial encounter Assessment & Plan: superficial abrasion of left hip. likely pressure related. limited to skin. stage II. foam dressings. keep off wound. skin protectant. turn q2h. (3) Right foot ulcer Assessment & Plan: right lateral mid foot and distal foot ulcer. mid foot ulcer 2cm and distal ulcer 1cm. no active drainage. some edema of foot but no significant cellulitis. no signs of active infection and likely chronic. no odor. unstageable. xray - Possible soft tissue ulcer overlying the fifth metatarsal head. No plain radiographic evidence of osteomyelitis. No acute bony trauma -foam dressings -skin protectant -will order plain films -keep off wounds -heel protectors -turn q2h. Darion Banks May 12, 2018 17:13
[2018-05-12 19:50] VITALS: BP 136/81
[2018-05-12] MEDS: Atorvastatin 20mg tab GT SCH (20:39)
[2018-05-13] VITALS (7 sets, daily range): BP systolic 119–152; BP diastolic 77–86
[2018-05-13] MEDS: Vancomycin 1gm/D5W 275ml IVPB SCH ×4 (01:01→09:27)
[2018-05-13] MEDS: Piperacillin/Tazobactam 3.375 GM in D5W 110 ML IVPB SCH ×3 (04:13→20:52)
--- NOTE | 2018-05-13 08:08 | Infectious Diseases Prog Note ---
Assessment/Plan Assessment/Plan Sepsis; resolved- 2ry to PNA (HCAP vs Asp PNA), ?UTI -CXR 05/10: Right lower lung airspace disease has slightly improved since prior study. Similar left lower lobe retrocardiac infiltrate. -CXR: Positive for bilateral lower lung infiltrates, likely pneumonia' -sp cx ESBL E.coli ( S Zosyn, Ertapenem), S. aureus (sensi pending) -u/a wbc 5-10, nit neg, leuk +3; ucx >100k VRE (S amp, tetracycline, Linezolid ) Fever/leukocytosis; resolved R foot ulcer, no signs of infection -R foot xray: Possible soft tissue ulcer overlying the fifth metatarsal head. No plain radiographic evidence of osteomyelitis. Note, however, limited sensitivity of plain radiographs for such. No acute bony trauma HTN COPD/emphysema dysphagia s/p G-tube GERD seizure disorder Plan: -Continue Vanco # 7/10, Zosyn #7/10 for PNA and UTI -low threshold to switch Zosyn to Ertapenem if decompensation - 05/12/18 SP Levaquin #6/5 for atypical coverage - 05/09 SP IV Vanco #3 -f/u cx -monitor CBC/CMP, temperatures -f/u legionella ag urine -GT care -aspiration precautions -wound care per hosp protocol Thank you for this consultation. Will continue to follow along with you. Subjective Allergies: Coded Allergies: No Known Allergies (Unverified , 05/07/18) Subjective Patient just given Ativan for agitation Sleeping Afebrile Objective Vital Signs Last 24 Hour Vital Signs Date Time Temp Pulse Resp B/P (MAP) Pulse Ox O2 Delivery O2 Flow Rate FiO2 05/13/18 05:08 97.3 63 18 123/83 (96) 93 97.3 05/13/18 04:00 96.3 63 20 123/83 (96) 93 96.3 05/13/18 00:21 96.5 81 20 120/77 (91) 100 96.5 05/12/18 21:20 Room Air 05/12/18 19:50 96.5 67 20 136/81 (99) 94 96.5 05/12/18 16:00 96.5 88 18 131/86 (101) 94 96.5 05/12/18 12:00 97.5 71 18 105/68 (80) 100 97.5 05/12/18 09:00 Room Air Height (Feet): 6 Weight (Pounds): 160 Objective General Appearance: Sleeping, calm Head: normocephalic, Eyes: bilateral eye normal inspection, bilateral eye PERRL, bilateral eye EOMI ENT: normal ENT inspection, hearing grossly normal, normal pharynx, no angioedema, normal voice, dry mucus membranes Neck: normal inspection, supple, supple/symm/no masses, Trached Respiratory: chest non-tender, rhonchi - R>L, chest symmetrical, palpation of chest normal Cardiovascular #1: normal peripheral pulses, regular rate, rhythm Gastrointestinal: normal inspection, non tender, soft, no mass, no guarding, no rebound Genitourinary: normal inspection, no CVA tenderness Skin: normal color, no rash, warm/dry Current Medications Medications (Trade) Dose Ordered Sig/Violette Route PRN Reason Start Time Stop Time Status Last Admin Dose Admin Aspirin (ASA) 81 mg DAILY GT 05/10/18 09:00 06/07/18 08:59 05/12/18 08:19 Atorvastatin Calcium (Lipitor) 20 mg BEDTIME GT 05/09/18 21:00 06/06/18 20:59 05/12/18 20:39 Dextrose (Dextrose 50%) 25 ml STAT PRN IV Hypoglycemia 05/09/18 18:00 06/06/18 17:59 Dextrose (Dextrose 50%) 50 ml STAT PRN IV Hypoglycemia 05/09/18 18:00 06/06/18 17:59 Diphenhydramine HCl (Benadryl) 25 mg Q6H PRN IVP Itching 05/11/18 21:30 06/10/18 21:29 05/11/18 22:09 Heparin Sodium (Porcine) (Heparin 5000 units/ml) 5,000 units EVERY 12 HOURS SUBQ 05/09/18 21:00 06/06/18 20:59 05/12/18 20:40 Levetiracetam (Keppra) 750 mg Q12HR GT 05/09/18 21:00 06/06/18 20:59 05/12/18 20:39 Lorazepam (Ativan 2mg/ml 1ml) 1 mg Q4H PRN IV For Anxiety 05/10/18 21:45 05/17/18 21:44 05/10/18 22:44 Pantoprazole (Protonix) 40 mg DAILY IVP 05/10/18 09:00 06/07/18 08:59 05/12/18 09:23 Piperacillin Sod/ Tazobactam Sod 3.375 gm/Dextrose 110 ml @ 27.5 mls/hr EVERY 8 HOURS IVPB 05/09/18 22:00 05/16/18 23:00 05/13/18 04:13 Polyethylene Glycol (Miralax) 17 gm DAILY PRN GT Constipation 05/09/18 16:30 06/08/18 16:29 Vancomycin HCl (Vanco rx to dose) 1 ea DAILY PRN MISC Per rx protocol 05/10/18 12:15 06/09/18 12:14 Vancomycin HCl 1 gm/Dextrose 275 ml @ 183.708 mls/hr Q8H IVPB 05/10/18 18:00 05/16/18 19:00 05/13/18 01:01 Vitamin D (Vitamin D) 5,000 intlu DAILY GT 05/10/18 09:00 06/07/18 08:59 05/12/18 08:19 Donovan Sheikh M.D. May 13, 2018 08:08
[2018-05-13] MEDS: Vitamin D 1000 IU Tab GT SCH (09:22)
[2018-05-13] MEDS: Aspirin Baby 81mg GT SCH (09:22)
[2018-05-13] MEDS: LORazepam Inj 2mg/ml 1ml IV PRN (09:22)
[2018-05-13] MEDS: Pantoprazole Inj IVP SCH (09:22)
[2018-05-13] MEDS: levETIRAcetam 500mg/5ml Liquid GT SCH ×2 (09:22→20:53)
[2018-05-13] MEDS: Heparin 5000 units/ml inj SUBQ SCH ×2 (09:27→20:53)
[2018-05-13] MEDS ORDERED: Pneumococcal Vaccine 25mcg/0.5ml IM ONE (11:00)
--- NOTE | 2018-05-13 11:11 | General Surgery Progress Note ---
General Surgery-Progress Note Subjective Additional Comments no acute events. comfortable. Objective Last 24 Hour Vital Signs Date Time Temp Pulse Resp B/P (MAP) Pulse Ox O2 Delivery O2 Flow Rate FiO2 05/13/18 09:00 Room Air 05/13/18 08:00 97.5 69 19 135/86 (102) 100 97.5 05/13/18 05:08 97.3 63 18 123/83 (96) 93 97.3 05/13/18 04:00 96.3 63 20 123/83 (96) 93 96.3 05/13/18 00:21 96.5 81 20 120/77 (91) 100 96.5 05/12/18 21:20 Room Air 05/12/18 19:50 96.5 67 20 136/81 (99) 94 96.5 05/12/18 16:00 96.5 88 18 131/86 (101) 94 96.5 05/12/18 12:00 97.5 71 18 105/68 (80) 100 97.5 I&O Intake and Output 05/12/18 05/13/18 19:00 07:00 Intake Total 1123.708 ml 1418.792 ml Balance 1123.708 ml 1418.792 ml Intake Free Water 400 ml 200 ml IV Total 183.708 ml 558.792 ml Tube Feeding 540 ml 660 ml Dressing: dry Wound: clean Drains: none Cardiovascular: RSR Respiratory: clear Abdomen: soft, flat, non-tender, present bowel sounds Extremities: other Laboratory Tests Test 05/13/18 09:10 Vancomycin Level Trough 25.3 ug/mL (5.0-12.0) H Plan Problems: (1) Sepsis Assessment & Plan: IV Abx as per ID (2) Abrasion, left hip, initial encounter Assessment & Plan: superficial abrasion of left hip. likely pressure related. limited to skin. stage II. foam dressings. keep off wound. skin protectant. turn q2h. (3) Right foot ulcer Assessment & Plan: right lateral mid foot and distal foot ulcer. mid foot ulcer 2cm and distal ulcer 1cm. no active drainage. some edema of foot but no significant cellulitis. no signs of active infection and likely chronic. no odor. unstageable. xray - Possible soft tissue ulcer overlying the fifth metatarsal head. No plain radiographic evidence of osteomyelitis. No acute bony trauma -foam dressings -skin protectant -will order plain films -keep off wounds -heel protectors -turn q2h. Darion Banks May 13, 2018 11:11
--- NOTE | 2018-05-13 13:09 | Pulmonology Progress Note ---
Assessment/Plan Problems: (1) Aspiration pneumonia (2) Sepsis (3) COPD (chronic obstructive pulmonary disease) (4) Severe protein-calorie malnutrition (5) Dementia Assessment/Plan social service consult for plan of care and code status continue abx check electrolytes respiratory treatment titrate fio2 to sat of 92% dvt porphylaxis Subjective ROS Limited/Unobtainable: No Constitutional: Reports: no symptoms HEENT: Repors: no symptoms Respiratory: Reports: no symptoms Allergies: Coded Allergies: No Known Allergies (Unverified , 05/07/18) Objective Last 24 Hour Vital Signs Date Time Temp Pulse Resp B/P (MAP) Pulse Ox O2 Delivery O2 Flow Rate FiO2 05/13/18 09:00 Room Air 05/13/18 08:00 97.5 69 19 135/86 (102) 100 97.5 05/13/18 05:08 97.3 63 18 123/83 (96) 93 97.3 05/13/18 04:00 96.3 63 20 123/83 (96) 93 96.3 05/13/18 00:21 96.5 81 20 120/77 (91) 100 96.5 05/12/18 21:20 Room Air 05/12/18 19:50 96.5 67 20 136/81 (99) 94 96.5 05/12/18 16:00 96.5 88 18 131/86 (101) 94 96.5 Intake and Output 05/12/18 05/13/18 19:00 07:00 Intake Total 1123.708 ml 1418.792 ml Balance 1123.708 ml 1418.792 ml Intake Free Water 400 ml 200 ml IV Total 183.708 ml 558.792 ml Tube Feeding 540 ml 660 ml General Appearance: cachetic HEENT: normocephalic, atraumatic Respiratory/Chest: chest wall non-tender, lungs clear Cardiovascular: normal peripheral pulses, normal rate Abdomen: normal bowel sounds, no organomegaly Genitourinary: normal external genitalia 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 Laboratory Tests 05/13/18 09:10: Vancomycin Level Trough 25.3H Current Medications Medications (Trade) Dose Ordered Sig/Violette Route PRN Reason Start Time Stop Time Status Last Admin Dose Admin Aspirin (ASA) 81 mg DAILY GT 05/10/18 09:00 06/07/18 08:59 05/13/18 09:22 Atorvastatin Calcium (Lipitor) 20 mg BEDTIME GT 05/09/18 21:00 06/06/18 20:59 05/12/18 20:39 Dextrose (Dextrose 50%) 25 ml STAT PRN IV Hypoglycemia 05/09/18 18:00 06/06/18 17:59 Dextrose (Dextrose 50%) 50 ml STAT PRN IV Hypoglycemia 05/09/18 18:00 06/06/18 17:59 Diphenhydramine HCl (Benadryl) 25 mg Q6H PRN IVP Itching 05/11/18 21:30 06/10/18 21:29 05/11/18 22:09 Heparin Sodium (Porcine) (Heparin 5000 units/ml) 5,000 units EVERY 12 HOURS SUBQ 05/09/18 21:00 06/06/18 20:59 05/13/18 09:27 Levetiracetam (Keppra) 750 mg Q12HR GT 05/09/18 21:00 06/06/18 20:59 05/13/18 09:22 Lorazepam (Ativan 2mg/ml 1ml) 1 mg Q4H PRN IV For Anxiety 05/10/18 21:45 05/17/18 21:44 05/13/18 09:22 Pantoprazole (Protonix) 40 mg DAILY IVP 05/10/18 09:00 06/07/18 08:59 05/13/18 09:22 Piperacillin Sod/ Tazobactam Sod 3.375 gm/Dextrose 110 ml @ 27.5 mls/hr EVERY 8 HOURS IVPB 05/09/18 22:00 05/16/18 23:00 05/13/18 04:13 Polyethylene Glycol (Miralax) 17 gm DAILY PRN GT Constipation 05/09/18 16:30 06/08/18 16:29 Vancomycin HCl (Vanco rx to dose) 1 ea DAILY PRN MISC Per rx protocol 05/10/18 12:15 06/09/18 12:14 Vitamin D (Vitamin D) 5,000 intlu DAILY GT 05/10/18 09:00 06/07/18 08:59 05/13/18 09:22 Ta Martinez MD May 13, 2018 13:09
--- NOTE | 2018-05-13 15:19 | General Progress Note ---
Assessment/Plan Status: stable Assessment/Plan #. Leukocytosis due to underlying sepsis and septic shock. Currently better. --> Currently, he is on broad-spectrum antibiotics. --> Appreciate Infectious Disease Service, Surgical Service as well as Pulmonary team for evaluation of underlying pneumonia, he is being treated for that as well. #. Anemia due to underlying chronic disease. --> Continue to closely monitor for improvement. --> Anemia panel has been reviewed. Will trend CBC daily. --> Hemoglobin goal is above 7. #. Coagulopathy likely related to decreased vit k production --> no bleeding diathesis noted #. Hypertension. Systolic blood pressure goal is less than 140. #. Sepsis, secondary to pneumonia. #. Seizure disorder. No recent activity. #. Dysphagia, status post gastrostomy tube. The time the note was entered does not necessarily correspond to the time the patient was seen. Subjective Date patient seen: May 13, 2018 ROS Limited/Unobtainable: Yes Hematologic/Lymphatic: Reports: anemia Allergies: Coded Allergies: No Known Allergies (Unverified , 05/07/18) All Systems: reviewed and negative except above Subjective Pt awake and alert. No acute events. Vitals are stable. Objective Last 24 Hour Vital Signs Date Time Temp Pulse Resp B/P (MAP) Pulse Ox O2 Delivery O2 Flow Rate FiO2 05/13/18 12:00 97.9 63 20 141/83 (102) 99 97.9 05/13/18 09:00 Room Air 05/13/18 08:00 97.5 69 19 135/86 (102) 100 97.5 05/13/18 05:08 97.3 63 18 123/83 (96) 93 97.3 05/13/18 04:00 96.3 63 20 123/83 (96) 93 96.3 05/13/18 00:21 96.5 81 20 120/77 (91) 100 96.5 05/12/18 21:20 Room Air 05/12/18 19:50 96.5 67 20 136/81 (99) 94 96.5 05/12/18 16:00 96.5 88 18 131/86 (101) 94 96.5 Intake and Output 05/12/18 05/13/18 19:00 07:00 Intake Total 1123.708 ml 1418.792 ml Balance 1123.708 ml 1418.792 ml Intake Free Water 400 ml 200 ml IV Total 183.708 ml 558.792 ml Tube Feeding 540 ml 660 ml Laboratory Tests 05/13/18 09:10: Vancomycin Level Trough 25.3H Height (Feet): 6 Weight (Pounds): 160 General Appearance: no apparent distress, alert EENT: PERRL/EOMI Neck: normal alignment Cardiovascular: normal peripheral pulses Respiratory/Chest: no respiratory distress Abdomen: soft Say Shin MD May 13, 2018 15:19
[2018-05-13] MEDS ORDERED: NS 275ml ONE (16:27)
--- NOTE | 2018-05-13 17:45 | Internal Med Progress Note ---
Subjective Date of Service: May 13, 2018 Physician Name Madi Contreras Attending Physician Ta Martinez MD Current Medications Medications (Trade) Dose Ordered Sig/Violette Route PRN Reason Start Time Stop Time Status Last Admin Dose Admin Aspirin (ASA) 81 mg DAILY GT 05/10/18 09:00 06/07/18 08:59 05/13/18 09:22 Atorvastatin Calcium (Lipitor) 20 mg BEDTIME GT 05/09/18 21:00 06/06/18 20:59 05/12/18 20:39 Dextrose (Dextrose 50%) 25 ml STAT PRN IV Hypoglycemia 05/09/18 18:00 06/06/18 17:59 Dextrose (Dextrose 50%) 50 ml STAT PRN IV Hypoglycemia 05/09/18 18:00 06/06/18 17:59 Diphenhydramine HCl (Benadryl) 25 mg Q6H PRN IVP Itching 05/11/18 21:30 06/10/18 21:29 05/11/18 22:09 Heparin Sodium (Porcine) (Heparin 5000 units/ml) 5,000 units EVERY 12 HOURS SUBQ 05/09/18 21:00 06/06/18 20:59 05/13/18 09:27 Levetiracetam (Keppra) 750 mg Q12HR GT 05/09/18 21:00 06/06/18 20:59 05/13/18 09:22 Lorazepam (Ativan 2mg/ml 1ml) 1 mg Q4H PRN IV For Anxiety 05/10/18 21:45 05/17/18 21:44 05/13/18 09:22 Pantoprazole (Protonix) 40 mg DAILY IVP 05/10/18 09:00 06/07/18 08:59 05/13/18 09:22 Piperacillin Sod/ Tazobactam Sod 3.375 gm/Dextrose 110 ml @ 27.5 mls/hr EVERY 8 HOURS IVPB 05/09/18 22:00 05/16/18 23:00 05/13/18 13:17 Polyethylene Glycol (Miralax) 17 gm DAILY PRN GT Constipation 05/09/18 16:30 06/08/18 16:29 Vancomycin HCl (Vanco rx to dose) 1 ea DAILY PRN MISC Per rx protocol 05/10/18 12:15 06/09/18 12:14 Vitamin D (Vitamin D) 5,000 intlu DAILY GT 05/10/18 09:00 06/07/18 08:59 05/13/18 09:22 Allergies: Coded Allergies: No Known Allergies (Unverified , 05/07/18) ROS Limited/Unobtainable: Yes Subjective 62 YO M admitted with fever and pneumonia. Now sepsis. Cover for Int Med-Dr Shaw. Objective Last Vital Signs Date Time Temp Pulse Resp B/P (MAP) Pulse Ox O2 Delivery O2 Flow Rate FiO2 05/13/18 16:00 98.9 79 19 152/84 (106) 97 98.9 05/13/18 09:00 Room Air General Appearance: WD/WN, no apparent distress, alert, thin EENT: PERRL/EOMI, normal ENT inspection Neck: non-tender, normal alignment, supple, normal inspection Cardiovascular: normal peripheral pulses, normal rate, regular rhythm, no gallop/murmur, no JVD Respiratory/Chest: chest wall non-tender, lungs clear, normal breath sounds, no respiratory distress, no accessory muscle use Abdomen: normal bowel sounds, non tender, soft, no organomegaly, no mass 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 (5) HTN (hypertension) (6) Seizure disorder Assessment & Plan: Continue keppra (7) Dysphagia Assessment & Plan: G-tube feeds (8) Right foot ulcer Status: not improved Madi Contreras MD May 13, 2018 17:45
[2018-05-13] MEDS: Atorvastatin 20mg tab GT SCH (20:53)
[2018-05-14 00:11] VITALS: BP 113/69
[2018-05-14 04:03] VITALS: BP 140/69
[2018-05-14] MEDS: Piperacillin/Tazobactam 3.375 GM in D5W 110 ML IVPB SCH ×3 (04:42→23:28)
--- NOTE | 2018-05-14 07:59 | Infectious Diseases Prog Note ---
Assessment/Plan Assessment/Plan Sepsis; resolved- 2ry to PNA (HCAP vs Asp PNA), ?UTI -CXR 05/10: Right lower lung airspace disease has slightly improved since prior study. Similar left lower lobe retrocardiac infiltrate. -CXR: Positive for bilateral lower lung infiltrates, likely pneumonia' -sp cx ESBL E.coli ( S Zosyn, Ertapenem), S. aureus (sensi pending) -u/a wbc 5-10, nit neg, leuk +3; ucx >100k VRE (S amp, tetracycline, Linezolid ) Fever/leukocytosis; resolved R foot ulcer, no signs of infection -R foot xray: Possible soft tissue ulcer overlying the fifth metatarsal head. No plain radiographic evidence of osteomyelitis. Note, however, limited sensitivity of plain radiographs for such. No acute bony trauma HTN COPD/emphysema dysphagia s/p G-tube GERD seizure disorder Plan: -Continue Vanco # 8/10, Zosyn #8/10 for PNA and UTI -low threshold to switch Zosyn to Ertapenem if decompensation - 05/12/18 SP Levaquin #6/5 for atypical coverage - 05/09 SP IV Vanco #3 -f/u cx -monitor CBC/CMP, temperatures -f/u legionella ag urine -GT care -aspiration precautions -wound care per hosp protocol Thank you for this consultation. Will continue to follow along with you. Subjective Allergies: Coded Allergies: No Known Allergies (Unverified , 05/07/18) Subjective Patient sleeping. Has been agitated per nurse Afebrile, No N/V/D Objective Vital Signs Last 24 Hour Vital Signs Date Time Temp Pulse Resp B/P (MAP) Pulse Ox O2 Delivery O2 Flow Rate FiO2 05/14/18 04:03 98.1 71 20 140/69 (92) 99 98.1 05/14/18 00:11 98.3 82 19 113/69 (84) 95 98.3 05/13/18 20:15 Room Air 05/13/18 19:54 97.5 94 20 119/80 (93) 100 97.5 05/13/18 16:00 98.9 79 19 152/84 (106) 97 98.9 05/13/18 12:00 97.9 63 20 141/83 (102) 99 97.9 05/13/18 09:00 Room Air 05/13/18 08:00 97.5 69 19 135/86 (102) 100 97.5 Height (Feet): 6 Weight (Pounds): 140 Objective General Appearance: Sleeping, calm Head: NCAT Eyes: bilateral eye normal inspection, bilateral eye PERRL, bilateral eye EOMI ENT: normal ENT inspection, hearing grossly normal, normal pharynx, no angioedema, normal voice, dry mucus membranes Neck: normal inspection, supple, supple/symm/no masses, Trached Respiratory: chest non-tender, rhonchi - R>L, chest symmetrical, palpation of chest normal Cardiovascular #1: normal peripheral pulses, regular rate, rhythm Gastrointestinal: normal inspection, non tender, soft, no mass, no guarding, no rebound Genitourinary: normal inspection, no CVA tenderness Skin: normal color, no rash, warm/dry Laboratory Tests Test 05/13/18 09:10 Vancomycin Level Trough 25.3 ug/mL (5.0-12.0) H Current Medications Medications (Trade) Dose Ordered Sig/Violette Route PRN Reason Start Time Stop Time Status Last Admin Dose Admin Aspirin (ASA) 81 mg DAILY GT 05/10/18 09:00 06/07/18 08:59 05/13/18 09:22 Atorvastatin Calcium (Lipitor) 20 mg BEDTIME GT 05/09/18 21:00 06/06/18 20:59 05/13/18 20:53 Dextrose (Dextrose 50%) 25 ml STAT PRN IV Hypoglycemia 05/09/18 18:00 06/06/18 17:59 Dextrose (Dextrose 50%) 50 ml STAT PRN IV Hypoglycemia 05/09/18 18:00 06/06/18 17:59 Diphenhydramine HCl (Benadryl) 25 mg Q6H PRN IVP Itching 05/11/18 21:30 06/10/18 21:29 05/11/18 22:09 Heparin Sodium (Porcine) (Heparin 5000 units/ml) 5,000 units EVERY 12 HOURS SUBQ 05/09/18 21:00 06/06/18 20:59 05/13/18 20:53 Levetiracetam (Keppra) 750 mg Q12HR GT 05/09/18 21:00 06/06/18 20:59 05/13/18 20:53 Lorazepam (Ativan 2mg/ml 1ml) 1 mg Q4H PRN IV For Anxiety 05/10/18 21:45 05/17/18 21:44 05/13/18 09:22 Pantoprazole (Protonix) 40 mg DAILY IVP 05/10/18 09:00 06/07/18 08:59 05/13/18 09:22 Piperacillin Sod/ Tazobactam Sod 3.375 gm/Dextrose 110 ml @ 27.5 mls/hr EVERY 8 HOURS IVPB 05/09/18 22:00 05/16/18 23:00 05/14/18 04:42 Polyethylene Glycol (Miralax) 17 gm DAILY PRN GT Constipation 05/09/18 16:30 06/08/18 16:29 Vancomycin HCl (Vanco rx to dose) 1 ea DAILY PRN MISC Per rx protocol 05/10/18 12:15 06/09/18 12:14 Vitamin D (Vitamin D) 5,000 intlu DAILY GT 05/10/18 09:00 06/07/18 08:59 05/13/18 09:22 Donovan Sheikh M.D. May 14, 2018 07:59
[2018-05-14 08:00] VITALS: BP 116/79
[2018-05-14] MEDS: Vitamin D 1000 IU Tab GT SCH (08:22)
[2018-05-14] MEDS: levETIRAcetam 500mg/5ml Liquid GT SCH ×2 (08:22→21:02)
[2018-05-14] MEDS: Pantoprazole Inj IVP SCH (08:22)
[2018-05-14] MEDS: Aspirin Baby 81mg GT SCH (08:22)
[2018-05-14] MEDS: Heparin 5000 units/ml inj SUBQ SCH ×2 (08:23→21:12)
[2018-05-14] MEDS: LORazepam Inj 2mg/ml 1ml IV PRN ×2 (08:23→21:38)
[2018-05-14 08:59] LABS: BASOPHILS % (AUTO) 1.3 % (0.0-2.0); EOSINOPHILS % (AUTO) 16.4 % (0.0-3.0); LYMPHOCYTES % (AUTO) 19.3 % (20.0-45.0); MEAN CORPUSCULAR VOLUME 72 FL (80-99); MONOCYTES % (AUTO) 6.6 % (1.0-10.0); NEUTROPHILS % (AUTO) 56.3 % (45.0-75.0); PLATELET COUNT 255 K/UL (150-450); RED CELL DISTRIBUTION WIDTH 16.2 % (11.6-14.8); WHITE BLOOD COUNT 6.7 K/UL (4.8-10.8)
[2018-05-14 09:28] LABS: ANION GAP 5 mmol/L (5-15); BLOOD UREA NITROGEN 11 mg/dL (7-18); CALCIUM 9.3 MG/DL (8.5-10.1); CARBON DIOXIDE 31 MMOL/L (21-32); CHLORIDE 109 MMOL/L (98-107); CREATININE 0.8 MG/DL (0.55-1.30); SODIUM 145 MMOL/L (136-145)
[2018-05-14] MEDS: Vancomycin 1250mg/D5W 250ml IVPB SCH ×2 (11:53→21:28)
[2018-05-14 12:00] VITALS: BP 105/70
--- NOTE | 2018-05-14 12:29 | Internal Med Progress Note ---
Subjective Date of Service: May 14, 2018 Physician Name DianeMadi Attending Physician Guillermo Shaw MD Current Medications Medications (Trade) Dose Ordered Sig/Violette Route PRN Reason Start Time Stop Time Status Last Admin Dose Admin Aspirin (ASA) 81 mg DAILY GT 05/10/18 09:00 06/07/18 08:59 05/14/18 08:22 Atorvastatin Calcium (Lipitor) 20 mg BEDTIME GT 05/09/18 21:00 06/06/18 20:59 05/13/18 20:53 Dextrose (Dextrose 50%) 25 ml STAT PRN IV Hypoglycemia 05/09/18 18:00 06/06/18 17:59 Dextrose (Dextrose 50%) 50 ml STAT PRN IV Hypoglycemia 05/09/18 18:00 06/06/18 17:59 Diphenhydramine HCl (Benadryl) 25 mg Q6H PRN IVP Itching 05/11/18 21:30 06/10/18 21:29 05/11/18 22:09 Heparin Sodium (Porcine) (Heparin 5000 units/ml) 5,000 units EVERY 12 HOURS SUBQ 05/09/18 21:00 06/06/18 20:59 05/14/18 08:23 Levetiracetam (Keppra) 750 mg Q12HR GT 05/09/18 21:00 06/06/18 20:59 05/14/18 08:22 Lorazepam (Ativan 2mg/ml 1ml) 1 mg Q4H PRN IV For Anxiety 05/10/18 21:45 05/17/18 21:44 05/14/18 08:23 Pantoprazole (Protonix) 40 mg DAILY IVP 05/10/18 09:00 06/07/18 08:59 05/14/18 08:22 Piperacillin Sod/ Tazobactam Sod 3.375 gm/Dextrose 110 ml @ 27.5 mls/hr EVERY 8 HOURS IVPB 05/09/18 22:00 05/16/18 23:00 05/14/18 04:42 Polyethylene Glycol (Miralax) 17 gm DAILY PRN GT Constipation 05/09/18 16:30 06/08/18 16:29 Vancomycin HCl (Vanco rx to dose) 1 ea DAILY PRN MISC Per rx protocol 05/10/18 12:15 06/09/18 12:14 Vancomycin HCl/ Dextrose 250 ml @ 166.667 mls/hr Q12H IVPB 05/14/18 11:00 05/19/18 10:59 05/14/18 11:53 Vitamin D (Vitamin D) 5,000 intlu DAILY GT 05/10/18 09:00 06/07/18 08:59 05/14/18 08:22 Allergies: Coded Allergies: No Known Allergies (Unverified , 05/07/18) ROS Limited/Unobtainable: No Constitutional: Reports: no symptoms HEENT: Reports: no symptoms Cardiovascular: Reports: no symptoms Respiratory: Reports: no symptoms Gastrointestinal/Abdominal: Reports: no symptoms Genitourinary: Reports: no symptoms Neurologic/Psychiatric: Reports: no symptoms Subjective 62 YO M admitted with fever and pneumonia. Now sepsis. Cover for Int Med-Dr Shaw. Objective Last Vital Signs Date Time Temp Pulse Resp B/P (MAP) Pulse Ox O2 Delivery O2 Flow Rate FiO2 05/14/18 12:00 97.5 65 19 105/70 (82) 98 97.5 05/14/18 09:00 Room Air Laboratory Tests Test 05/14/18 08:10 White Blood Count 6.7 K/UL (4.8-10.8) Red Blood Count 4.30 M/UL (4.70-6.10) L Hemoglobin 10.0 G/DL (14.2-18.0) L Hematocrit 31.0 % (42.0-52.0) L Mean Corpuscular Volume 72 FL (80-99) L Mean Corpuscular Hemoglobin 23.3 PG (27.0-31.0) L Mean Corpuscular Hemoglobin Concent 32.3 G/DL (32.0-36.0) Red Cell Distribution Width 16.2 % (11.6-14.8) H Platelet Count 255 K/UL (150-450) Mean Platelet Volume 10.1 FL (6.5-10.1) Neutrophils (%) (Auto) 56.3 % (45.0-75.0) Lymphocytes (%) (Auto) 19.3 % (20.0-45.0) L Monocytes (%) (Auto) 6.6 % (1.0-10.0) Eosinophils (%) (Auto) 16.4 % (0.0-3.0) H Basophils (%) (Auto) 1.3 % (0.0-2.0) Sodium Level 145 MMOL/L (136-145) Potassium Level 4.0 MMOL/L (3.5-5.1) Chloride Level 109 MMOL/L (98-107) H Carbon Dioxide Level 31 MMOL/L (21-32) Anion Gap 5 mmol/L (5-15) Blood Urea Nitrogen 11 mg/dL (7-18) Creatinine 0.8 MG/DL (0.55-1.30) Estimat Glomerular Filtration Rate > 60 mL/min (>60) Glucose Level 109 MG/DL (74-106) H Calcium Level 9.3 MG/DL (8.5-10.1) Random Vancomycin Level 14.1 ug/mL Intake and Output 05/13/18 05/14/18 19:00 07:00 Intake Total 700 ml 965.0 ml Balance 700 ml 965.0 ml Intake Free Water 100 ml 200 ml IV Total 165.0 ml Tube Feeding 600 ml 600 ml # Voids 3 Objective General Appearance: WD/WN, no apparent distress, alert, thin EENT: PERRL/EOMI, normal ENT inspection Neck: non-tender, normal alignment, supple, normal inspection Cardiovascular: normal peripheral pulses, normal rate, regular rhythm, no gallop/murmur, no JVD Respiratory/Chest: chest wall non-tender, lungs clear, normal breath sounds, no respiratory distress, no accessory muscle use Abdomen: normal bowel sounds, non tender, soft, no organomegaly, no mass 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 (5) HTN (hypertension) (6) Seizure disorder Assessment & Plan: Continue keppra (7) Dysphagia Assessment & Plan: G-tube feeds (8) Right foot ulcer Status: not improved Madi Contreras MD May 14, 2018 12:29
--- NOTE | 2018-05-14 13:19 | Pulmonology Progress Note ---
Assessment/Plan Problems: (1) Aspiration pneumonia (2) Sepsis (3) COPD (chronic obstructive pulmonary disease) (4) Severe protein-calorie malnutrition (5) Dementia Assessment/Plan social service consult for plan of care and code status continue abx check electrolytes respiratory treatment titrate fio2 to sat of 92% dvt porphylaxis Subjective Constitutional: Reports: no symptoms HEENT: Repors: no symptoms Allergies: Coded Allergies: No Known Allergies (Unverified , 05/07/18) Objective Last 24 Hour Vital Signs Date Time Temp Pulse Resp B/P (MAP) Pulse Ox O2 Delivery O2 Flow Rate FiO2 05/14/18 12:00 97.5 65 19 105/70 (82) 98 97.5 05/14/18 09:00 Room Air 05/14/18 08:00 97.6 70 20 116/79 (91) 98 97.6 05/14/18 04:03 98.1 71 20 140/69 (92) 99 98.1 05/14/18 00:11 98.3 82 19 113/69 (84) 95 98.3 05/13/18 20:15 Room Air 05/13/18 19:54 97.5 94 20 119/80 (93) 100 97.5 05/13/18 16:00 98.9 79 19 152/84 (106) 97 98.9 Intake and Output 05/13/18 05/14/18 19:00 07:00 Intake Total 700 ml 965.0 ml Balance 700 ml 965.0 ml Intake Free Water 100 ml 200 ml IV Total 165.0 ml Tube Feeding 600 ml 600 ml # Voids 3 General Appearance: WD/WN HEENT: normocephalic, atraumatic Respiratory/Chest: chest wall non-tender, no respiratory distress Cardiovascular: normal peripheral pulses Abdomen: normal bowel sounds, no organomegaly Genitourinary: normal external genitalia Neurologic/Psychiatric: no motor/sensory deficits Laboratory Tests 05/14/18 08:10: White Blood Count 6.7, Red Blood Count 4.30L, Hemoglobin 10.0L, Hematocrit 31.0L , Mean Corpuscular Volume 72L, Mean Corpuscular Hemoglobin 23.3L, Mean Corpuscular Hemoglobin Concent 32.3, Red Cell Distribution Width 16.2H, Platelet Count 255, Mean Platelet Volume 10.1, Neutrophils (%) (Auto) 56.3, Lymphocytes (%) (Auto) 19.3L, Monocytes (%) (Auto) 6.6, Eosinophils (%) (Auto) 16.4H, Basophils (%) (Auto) 1.3, Sodium Level 145, Potassium Level 4.0, Chloride Level 109H, Carbon Dioxide Level 31, Anion Gap 5, Blood Urea Nitrogen 11, Creatinine 0.8, Estimat Glomerular Filtration Rate > 60, Glucose Level 109H , Calcium Level 9.3, Random Vancomycin Level 14.1 Current Medications Medications (Trade) Dose Ordered Sig/Violette Route PRN Reason Start Time Stop Time Status Last Admin Dose Admin Aspirin (ASA) 81 mg DAILY GT 05/10/18 09:00 06/07/18 08:59 05/14/18 08:22 Atorvastatin Calcium (Lipitor) 20 mg BEDTIME GT 05/09/18 21:00 06/06/18 20:59 05/13/18 20:53 Dextrose (Dextrose 50%) 25 ml STAT PRN IV Hypoglycemia 05/09/18 18:00 06/06/18 17:59 Dextrose (Dextrose 50%) 50 ml STAT PRN IV Hypoglycemia 05/09/18 18:00 06/06/18 17:59 Diphenhydramine HCl (Benadryl) 25 mg Q6H PRN IVP Itching 05/11/18 21:30 06/10/18 21:29 05/11/18 22:09 Heparin Sodium (Porcine) (Heparin 5000 units/ml) 5,000 units EVERY 12 HOURS SUBQ 05/09/18 21:00 06/06/18 20:59 05/14/18 08:23 Levetiracetam (Keppra) 750 mg Q12HR GT 05/09/18 21:00 06/06/18 20:59 05/14/18 08:22 Lorazepam (Ativan 2mg/ml 1ml) 1 mg Q4H PRN IV For Anxiety 05/10/18 21:45 05/17/18 21:44 05/14/18 08:23 Pantoprazole (Protonix) 40 mg DAILY IVP 05/10/18 09:00 06/07/18 08:59 05/14/18 08:22 Piperacillin Sod/ Tazobactam Sod 3.375 gm/Dextrose 110 ml @ 27.5 mls/hr EVERY 8 HOURS IVPB 05/09/18 22:00 05/16/18 23:00 05/14/18 04:42 Polyethylene Glycol (Miralax) 17 gm DAILY PRN GT Constipation 05/09/18 16:30 06/08/18 16:29 Vancomycin HCl (Vanco rx to dose) 1 ea DAILY PRN MISC Per rx protocol 05/10/18 12:15 06/09/18 12:14 Vancomycin HCl/ Dextrose 250 ml @ 166.667 mls/hr Q12H IVPB 05/14/18 11:00 05/19/18 10:59 05/14/18 11:53 Vitamin D (Vitamin D) 5,000 intlu DAILY GT 05/10/18 09:00 06/07/18 08:59 05/14/18 08:22 Ta Martinez MD May 14, 2018 13:19
[2018-05-14 16:00] VITALS: BP 137/74
--- NOTE | 2018-05-14 19:07 | General Progress Note ---
Assessment/Plan Status: stable Assessment/Plan #. Leukocytosis due to underlying sepsis and septic shock. Currently better. --> Currently, he is on broad-spectrum antibiotics. --> Appreciate Infectious Disease Service, Surgical Service as well as Pulmonary team for evaluation of underlying pneumonia, he is being treated for that as well. --> WBC wnl #. Anemia due to underlying chronic disease. --> Continue to closely monitor for improvement. --> Anemia panel has been reviewed. Will trend CBC daily. --> Hemoglobin goal is above 7. #. Coagulopathy likely related to decreased vit k production --> no bleeding diathesis noted #. Hypertension. Systolic blood pressure goal is less than 140. #. Sepsis, secondary to pneumonia. #. Seizure disorder. No recent activity. #. Dysphagia, status post gastrostomy tube. The time the note was entered does not necessarily correspond to the time the patient was seen. Subjective Date patient seen: May 14, 2018 ROS Limited/Unobtainable: Yes Hematologic/Lymphatic: Reports: anemia Allergies: Coded Allergies: No Known Allergies (Unverified , 05/07/18) All Systems: reviewed and negative except above Subjective Pt awake and alert. No acute events. Vitals are stable. DC planning. Objective Last 24 Hour Vital Signs Date Time Temp Pulse Resp B/P (MAP) Pulse Ox O2 Delivery O2 Flow Rate FiO2 05/14/18 16:00 97.8 63 19 137/74 (95) 97 97.8 05/14/18 12:00 97.5 65 19 105/70 (82) 98 97.5 05/14/18 09:00 Room Air 05/14/18 08:00 97.6 70 20 116/79 (91) 98 97.6 05/14/18 04:03 98.1 71 20 140/69 (92) 99 98.1 05/14/18 00:11 98.3 82 19 113/69 (84) 95 98.3 05/13/18 20:15 Room Air 05/13/18 19:54 97.5 94 20 119/80 (93) 100 97.5 Intake and Output 05/13/18 05/14/18 19:00 07:00 Intake Total 700 ml 965.0 ml Balance 700 ml 965.0 ml Intake Free Water 100 ml 200 ml IV Total 165.0 ml Tube Feeding 600 ml 600 ml # Voids 3 Laboratory Tests 8/1/18 08:10: White Blood Count 6.7, Red Blood Count 4.30L, Hemoglobin 10.0L, Hematocrit 31.0L , Mean Corpuscular Volume 72L, Mean Corpuscular Hemoglobin 23.3L, Mean Corpuscular Hemoglobin Concent 32.3, Red Cell Distribution Width 16.2H, Platelet Count 255, Mean Platelet Volume 10.1, Neutrophils (%) (Auto) 56.3, Lymphocytes (%) (Auto) 19.3L, Monocytes (%) (Auto) 6.6, Eosinophils (%) (Auto) 16.4H, Basophils (%) (Auto) 1.3, Sodium Level 145, Potassium Level 4.0, Chloride Level 109H, Carbon Dioxide Level 31, Anion Gap 5, Blood Urea Nitrogen 11, Creatinine 0.8, Estimat Glomerular Filtration Rate > 60, Glucose Level 109H , Calcium Level 9.3, Random Vancomycin Level 14.1 Height (Feet): 6 Weight (Pounds): 140 General Appearance: no apparent distress EENT: PERRL/EOMI Neck: normal alignment Cardiovascular: normal peripheral pulses Respiratory/Chest: no respiratory distress Abdomen: soft Say Shin MD May 14, 2018 19:07
[2018-05-14 20:00] VITALS: BP 115/80
[2018-05-14] MEDS: Atorvastatin 20mg tab GT SCH (21:01)
[2018-05-15] VITALS: BP 107/64
[2018-05-15 04:00] VITALS: BP 109/67
[2018-05-15 05:57] LABS: BASOPHILS % (AUTO) 0.6 % (0.0-2.0); EOSINOPHILS % (AUTO) 19.9 % (0.0-3.0); HEMATOCRIT 29.3 % (42.0-52.0); HEMOGLOBIN 9.3 G/DL (14.2-18.0); LYMPHOCYTES % (AUTO) 17.9 % (20.0-45.0); MEAN CORPUSCULAR VOLUME 72 FL (80-99); MONOCYTES % (AUTO) 8.5 % (1.0-10.0); NEUTROPHILS % (AUTO) 53.1 % (45.0-75.0); PLATELET COUNT 265 K/UL (150-450); RED BLOOD COUNT 4.04 M/UL (4.70-6.10); RED CELL DISTRIBUTION WIDTH 16.1 % (11.6-14.8); WHITE BLOOD COUNT 5.6 K/UL (4.8-10.8)
[2018-05-15 06:16] LABS: ANION GAP 5 mmol/L (5-15); BLOOD UREA NITROGEN 14 mg/dL (7-18); CARBON DIOXIDE 30 MMOL/L (21-32); CHLORIDE 109 MMOL/L (98-107); CREATININE 0.9 MG/DL (0.55-1.30); SODIUM 144 MMOL/L (136-145)
[2018-05-15] MEDS: Piperacillin/Tazobactam 3.375 GM in D5W 110 ML IVPB SCH ×3 (06:38→22:27)
[2018-05-15 08:00] VITALS: BP 118/70
--- NOTE | 2018-05-15 09:07 | General Progress Note ---
Assessment/Plan Status: stable Assessment/Plan #. Leukocytosis due to underlying sepsis and septic shock. Currently better. --> Currently, he is on broad-spectrum antibiotics. --> Appreciate Infectious Disease Service, Surgical Service as well as Pulmonary team for evaluation of underlying pneumonia, he is being treated for that as well. --> WBC wnl #. Anemia due to underlying chronic disease. --> Continue to closely monitor for improvement. --> Anemia panel has been reviewed. Will trend CBC daily. --> Hemoglobin goal is above 7. #. Coagulopathy likely related to decreased vit k production --> no bleeding diathesis noted #. Hypertension. Systolic blood pressure goal is less than 140. #. Sepsis, secondary to pneumonia. #. Seizure disorder. No recent activity. #. Dysphagia, status post gastrostomy tube. The time the note was entered does not necessarily correspond to the time the patient was seen. Subjective Date patient seen: May 15, 2018 ROS Limited/Unobtainable: Yes Hematologic/Lymphatic: Reports: anemia Allergies: Coded Allergies: No Known Allergies (Unverified , 05/07/18) All Systems: reviewed and negative except above Subjective Pt awake and alert. No acute events. Vitals are stable. DC planning. Objective Last 24 Hour Vital Signs Date Time Temp Pulse Resp B/P (MAP) Pulse Ox O2 Delivery O2 Flow Rate FiO2 05/15/18 08:00 97.5 73 18 118/70 (86) 96 97.5 05/15/18 04:00 99.0 69 20 109/67 (81) 99 99.0 05/15/18 00:00 97.0 60 20 107/64 (78) 100 97.0 05/14/18 21:00 Room Air 05/14/18 20:00 97.2 70 20 115/80 (92) 100 97.2 05/14/18 16:00 97.8 63 19 137/74 (95) 97 97.8 05/14/18 12:00 97.5 65 19 105/70 (82) 98 97.5 Intake and Output 05/14/18 05/15/18 19:00 07:00 Intake Total 1067.500 ml 1307.500 ml Output Total 1000 ml Balance 1067.500 ml 307.500 ml Intake Free Water 260 ml 260 ml IV Total 387.500 ml 387.500 ml Tube Feeding 420 ml 660 ml Output Urine Total 1000 ml Laboratory Tests 05/15/18 05:35: White Blood Count 5.6, Red Blood Count 4.04L, Hemoglobin 9.3L, Hematocrit 29.3L , Mean Corpuscular Volume 72L, Mean Corpuscular Hemoglobin 23.1L, Mean Corpuscular Hemoglobin Concent 31.9L, Red Cell Distribution Width 16.1H, Platelet Count 265, Mean Platelet Volume 10.3H, Neutrophils (%) (Auto) 53.1, Lymphocytes (%) (Auto) 17.9L, Monocytes (%) (Auto) 8.5, Eosinophils (%) (Auto) 19.9H, Basophils (%) (Auto) 0.6, Sodium Level 144, Potassium Level 4.0, Chloride Level 109H, Carbon Dioxide Level 30, Anion Gap 5, Blood Urea Nitrogen 14, Creatinine 0.9, Estimat Glomerular Filtration Rate > 60, Glucose Level 93, Calcium Level 9.0 Height (Feet): 6 Weight (Pounds): 140 General Appearance: no apparent distress EENT: PERRL/EOMI Neck: normal alignment Cardiovascular: normal peripheral pulses Respiratory/Chest: no respiratory distress Abdomen: soft Say Shin MD May 15, 2018 09:07
[2018-05-15] MEDS: levETIRAcetam 500mg/5ml Liquid GT SCH ×2 (09:40→20:58)
[2018-05-15] MEDS: Aspirin Baby 81mg GT SCH (09:41)
[2018-05-15] MEDS: Vitamin D 1000 IU Tab GT SCH (09:41)
[2018-05-15] MEDS: Pantoprazole Inj IVP SCH (09:42)
[2018-05-15] MEDS: Heparin 5000 units/ml inj SUBQ SCH ×2 (09:43→20:58)
[2018-05-15] MEDS: Vancomycin 1250mg/D5W 250ml IVPB SCH (11:03)
[2018-05-15 12:00] VITALS: BP 110/60
--- NOTE | 2018-05-15 15:04 | Pulmonology Progress Note ---
Assessment/Plan Problems: (1) Aspiration pneumonia (2) Sepsis (3) COPD (chronic obstructive pulmonary disease) (4) Severe protein-calorie malnutrition (5) Dementia Assessment/Plan social service consult for plan of care and code status continue abx check electrolytes respiratory treatment titrate fio2 to sat of 92% dvt porphylaxis dc planning in progress Subjective ROS Limited/Unobtainable: No Constitutional: Reports: no symptoms HEENT: Repors: no symptoms Allergies: Coded Allergies: No Known Allergies (Unverified , 05/07/18) Objective Last 24 Hour Vital Signs Date Time Temp Pulse Resp B/P (MAP) Pulse Ox O2 Delivery O2 Flow Rate FiO2 05/15/18 12:00 97.8 60 20 110/60 (77) 97 97.8 05/15/18 08:00 97.5 73 18 118/70 (86) 96 97.5 05/15/18 08:00 Room Air 05/15/18 04:00 99.0 69 20 109/67 (81) 99 99.0 05/15/18 00:00 97.0 60 20 107/64 (78) 100 97.0 05/14/18 21:00 Room Air 05/14/18 20:00 97.2 70 20 115/80 (92) 100 97.2 05/14/18 16:00 97.8 63 19 137/74 (95) 97 97.8 Intake and Output 05/14/18 05/15/18 19:00 07:00 Intake Total 1067.500 ml 1307.500 ml Output Total 1000 ml Balance 1067.500 ml 307.500 ml Intake Free Water 260 ml 260 ml IV Total 387.500 ml 387.500 ml Tube Feeding 420 ml 660 ml Output Urine Total 1000 ml General Appearance: WD/WN HEENT: normocephalic, atraumatic Respiratory/Chest: chest wall non-tender, normal breath sounds Cardiovascular: normal peripheral pulses, regular rhythm Abdomen: normal bowel sounds, soft, non tender, no scars 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 Laboratory Tests 05/15/18 05:35: White Blood Count 5.6, Red Blood Count 4.04L, Hemoglobin 9.3L, Hematocrit 29.3L , Mean Corpuscular Volume 72L, Mean Corpuscular Hemoglobin 23.1L, Mean Corpuscular Hemoglobin Concent 31.9L, Red Cell Distribution Width 16.1H, Platelet Count 265, Mean Platelet Volume 10.3H, Neutrophils (%) (Auto) 53.1, Lymphocytes (%) (Auto) 17.9L, Monocytes (%) (Auto) 8.5, Eosinophils (%) (Auto) 19.9H, Basophils (%) (Auto) 0.6, Sodium Level 144, Potassium Level 4.0, Chloride Level 109H, Carbon Dioxide Level 30, Anion Gap 5, Blood Urea Nitrogen 14, Creatinine 0.9, Estimat Glomerular Filtration Rate > 60, Glucose Level 93, Calcium Level 9.0 Current Medications Medications (Trade) Dose Ordered Sig/Violette Route PRN Reason Start Time Stop Time Status Last Admin Dose Admin Aspirin (ASA) 81 mg DAILY GT 05/10/18 09:00 06/07/18 08:59 05/15/18 09:41 Atorvastatin Calcium (Lipitor) 20 mg BEDTIME GT 05/09/18 21:00 06/06/18 20:59 05/14/18 21:01 Dextrose (Dextrose 50%) 25 ml STAT PRN IV Hypoglycemia 05/09/18 18:00 06/06/18 17:59 Dextrose (Dextrose 50%) 50 ml STAT PRN IV Hypoglycemia 05/09/18 18:00 06/06/18 17:59 Diphenhydramine HCl (Benadryl) 25 mg Q6H PRN IVP Itching 05/11/18 21:30 06/10/18 21:29 05/11/18 22:09 Heparin Sodium (Porcine) (Heparin 5000 units/ml) 5,000 units EVERY 12 HOURS SUBQ 05/09/18 21:00 06/06/18 20:59 05/15/18 09:43 Levetiracetam (Keppra) 750 mg Q12HR GT 05/09/18 21:00 06/06/18 20:59 05/15/18 09:40 Lorazepam (Ativan 2mg/ml 1ml) 1 mg Q4H PRN IV For Anxiety 05/10/18 21:45 05/17/18 21:44 05/14/18 21:38 Pantoprazole (Protonix) 40 mg DAILY IVP 05/10/18 09:00 06/07/18 08:59 05/15/18 09:42 Piperacillin Sod/ Tazobactam Sod 3.375 gm/Dextrose 110 ml @ 27.5 mls/hr EVERY 8 HOURS IVPB 05/09/18 22:00 05/16/18 23:00 05/15/18 13:47 Polyethylene Glycol (Miralax) 17 gm DAILY PRN GT Constipation 05/09/18 16:30 06/08/18 16:29 Vancomycin HCl (Vanco rx to dose) 1 ea DAILY PRN MISC Per rx protocol 05/10/18 12:15 06/09/18 12:14 Vancomycin HCl/ Dextrose 250 ml @ 166.667 mls/hr Q12H IVPB 05/14/18 11:00 05/19/18 10:59 05/15/18 11:03 Vitamin D (Vitamin D) 5,000 intlu DAILY GT 05/10/18 09:00 06/07/18 08:59 05/15/18 09:41 Ta Martinez MD May 15, 2018 15:04
--- NOTE | 2018-05-15 15:36 | Internal Med Progress Note ---
Subjective Date of Service: May 15, 2018 Physician Name DianeMadi Attending Physician Guillermo Shaw MD Current Medications Medications (Trade) Dose Ordered Sig/Violette Route PRN Reason Start Time Stop Time Status Last Admin Dose Admin Aspirin (ASA) 81 mg DAILY GT 05/10/18 09:00 06/07/18 08:59 05/15/18 09:41 Atorvastatin Calcium (Lipitor) 20 mg BEDTIME GT 05/09/18 21:00 06/06/18 20:59 05/14/18 21:01 Clotrimazole (Lotrimin) 1 applic THREE TIMES A DAY TOPIC 05/15/18 18:00 06/14/18 17:59 Dextrose (Dextrose 50%) 25 ml STAT PRN IV Hypoglycemia 05/09/18 18:00 06/06/18 17:59 Dextrose (Dextrose 50%) 50 ml STAT PRN IV Hypoglycemia 05/09/18 18:00 06/06/18 17:59 Diphenhydramine HCl (Benadryl) 25 mg Q6H PRN IVP Itching 05/11/18 21:30 06/10/18 21:29 05/11/18 22:09 Heparin Sodium (Porcine) (Heparin 5000 units/ml) 5,000 units EVERY 12 HOURS SUBQ 05/09/18 21:00 06/06/18 20:59 05/15/18 09:43 Levetiracetam (Keppra) 750 mg Q12HR GT 05/09/18 21:00 06/06/18 20:59 05/15/18 09:40 Lorazepam (Ativan 2mg/ml 1ml) 1 mg Q4H PRN IV For Anxiety 05/10/18 21:45 05/17/18 21:44 05/14/18 21:38 Pantoprazole (Protonix) 40 mg DAILY IVP 05/10/18 09:00 06/07/18 08:59 05/15/18 09:42 Piperacillin Sod/ Tazobactam Sod 3.375 gm/Dextrose 110 ml @ 27.5 mls/hr EVERY 8 HOURS IVPB 05/09/18 22:00 05/16/18 23:00 05/15/18 13:47 Polyethylene Glycol (Miralax) 17 gm DAILY PRN GT Constipation 05/09/18 16:30 8/26/18 16:29 Vancomycin HCl (Vanco rx to dose) 1 ea DAILY PRN MISC Per rx protocol 05/10/18 12:15 06/09/18 12:14 Vancomycin HCl/ Dextrose 250 ml @ 166.667 mls/hr Q12H IVPB 05/14/18 11:00 05/19/18 10:59 05/15/18 11:03 Vitamin D (Vitamin D) 5,000 intlu DAILY GT 05/10/18 09:00 06/07/18 08:59 05/15/18 09:41 Allergies: Coded Allergies: No Known Allergies (Unverified , 05/07/18) ROS Limited/Unobtainable: Yes Subjective 62 YO M admitted with fever and pneumonia. Now sepsis. Cover for Int Med-Dr Shaw. Objective Last Vital Signs Date Time Temp Pulse Resp B/P (MAP) Pulse Ox O2 Delivery O2 Flow Rate FiO2 05/15/18 12:00 97.8 60 20 110/60 (77) 97 97.8 05/15/18 08:00 Room Air Laboratory Tests Test 05/15/18 05:35 White Blood Count 5.6 K/UL (4.8-10.8) Red Blood Count 4.04 M/UL (4.70-6.10) L Hemoglobin 9.3 G/DL (14.2-18.0) L Hematocrit 29.3 % (42.0-52.0) L Mean Corpuscular Volume 72 FL (80-99) L Mean Corpuscular Hemoglobin 23.1 PG (27.0-31.0) L Mean Corpuscular Hemoglobin Concent 31.9 G/DL (32.0-36.0) L Red Cell Distribution Width 16.1 % (11.6-14.8) H Platelet Count 265 K/UL (150-450) Mean Platelet Volume 10.3 FL (6.5-10.1) H Neutrophils (%) (Auto) 53.1 % (45.0-75.0) Lymphocytes (%) (Auto) 17.9 % (20.0-45.0) L Monocytes (%) (Auto) 8.5 % (1.0-10.0) Eosinophils (%) (Auto) 19.9 % (0.0-3.0) H Basophils (%) (Auto) 0.6 % (0.0-2.0) Sodium Level 144 MMOL/L (136-145) Potassium Level 4.0 MMOL/L (3.5-5.1) Chloride Level 109 MMOL/L (98-107) H Carbon Dioxide Level 30 MMOL/L (21-32) Anion Gap 5 mmol/L (5-15) Blood Urea Nitrogen 14 mg/dL (7-18) Creatinine 0.9 MG/DL (0.55-1.30) Estimat Glomerular Filtration Rate > 60 mL/min (>60) Glucose Level 93 MG/DL (74-106) Calcium Level 9.0 MG/DL (8.5-10.1) Intake and Output 05/14/18 05/15/18 19:00 07:00 Intake Total 1067.500 ml 1307.500 ml Output Total 1000 ml Balance 1067.500 ml 307.500 ml Intake Free Water 260 ml 260 ml IV Total 387.500 ml 387.500 ml Tube Feeding 420 ml 660 ml Output Urine Total 1000 ml Objective General Appearance: WD/WN, no apparent distress, alert, thin EENT: PERRL/EOMI, normal ENT inspection Neck: non-tender, normal alignment, supple, normal inspection Cardiovascular: normal peripheral pulses, normal rate, regular rhythm, no gallop/murmur, no JVD Respiratory/Chest: chest wall non-tender, lungs clear, normal breath sounds, no respiratory distress, no accessory muscle use Abdomen: normal bowel sounds, non tender, soft, no organomegaly, no mass 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 (5) HTN (hypertension) (6) Seizure disorder Assessment & Plan: Continue keppra (7) Dysphagia Assessment & Plan: G-tube feeds (8) Right foot ulcer Madi Contreras MD May 15, 2018 15:36
[2018-05-15 16:00] VITALS: BP 121/77
--- NOTE | 2018-05-15 18:07 | Infectious Diseases Prog Note ---
Assessment/Plan Assessment/Plan Sepsis; resolved- 2ry to PNA (HCAP vs Asp PNA), ?UTI -CXR 05/10: Right lower lung airspace disease has slightly improved since prior study. Similar left lower lobe retrocardiac infiltrate. -CXR: Positive for bilateral lower lung infiltrates, likely pneumonia' -sp cx ESBL E.coli ( S Zosyn, Ertapenem), S. aureus (sensi pending) -u/a wbc 5-10, nit neg, leuk +3; ucx >100k VRE (S amp, tetracycline, Linezolid ) Fever/leukocytosis; resolved R foot ulcer, no signs of infection -R foot xray: Possible soft tissue ulcer overlying the fifth metatarsal head. No plain radiographic evidence of osteomyelitis. Note, however, limited sensitivity of plain radiographs for such. No acute bony trauma HTN COPD/emphysema dysphagia s/p G-tube GERD seizure disorder Plan: -Continue Vanco # 9/10, Zosyn #9/10 for PNA and UTI -low threshold to switch Zosyn to Ertapenem if decompensation - 05/12/18 SP Levaquin #6/5 for atypical coverage - 05/09 SP IV Vanco #3 -f/u cx -monitor CBC/CMP, temperatures -f/u legionella ag urine -GT care -aspiration precautions -wound care per hosp protocol Thank you for this consultation. Will continue to follow along with you. Subjective Allergies: Coded Allergies: No Known Allergies (Unverified , 05/07/18) Subjective Patient sleep after being agitated Afebrile, No N/V/D Objective Vital Signs Last 24 Hour Vital Signs Date Time Temp Pulse Resp B/P (MAP) Pulse Ox O2 Delivery O2 Flow Rate FiO2 05/15/18 16:00 98.1 70 20 121/77 (92) 99 98.1 05/15/18 12:00 97.8 60 20 110/60 (77) 97 97.8 05/15/18 08:00 97.5 73 18 118/70 (86) 96 97.5 05/15/18 08:00 Room Air 05/15/18 04:00 99.0 69 20 109/67 (81) 99 99.0 05/15/18 00:00 97.0 60 20 107/64 (78) 100 97.0 05/14/18 21:00 Room Air 05/14/18 20:00 97.2 70 20 115/80 (92) 100 97.2 Height (Feet): 6 Weight (Pounds): 140 Objective General Appearance: Calm Head: NCAT, DMM Eyes: bilateral eye normal inspection, bilateral eye PERRL, bilateral eye EOMI ENT: normal ENT inspection, hearing grossly normal, normal pharynx, no angioedema, normal voice, dry mucus membranes Neck: normal inspection, supple, supple/symm/no masses, Trached Respiratory: chest non-tender, rhonchi - R>L, chest symmetrical, palpation of chest normal Cardiovascular #1: normal peripheral pulses, regular rate, rhythm Gastrointestinal: normal inspection, non tender, soft, no mass, no guarding, no rebound Genitourinary: normal inspection, no CVA tenderness Skin: normal color, no rash, warm/dry Laboratory Tests Test 05/15/18 05:35 White Blood Count 5.6 K/UL (4.8-10.8) Red Blood Count 4.04 M/UL (4.70-6.10) L Hemoglobin 9.3 G/DL (14.2-18.0) L Hematocrit 29.3 % (42.0-52.0) L Mean Corpuscular Volume 72 FL (80-99) L Mean Corpuscular Hemoglobin 23.1 PG (27.0-31.0) L Mean Corpuscular Hemoglobin Concent 31.9 G/DL (32.0-36.0) L Red Cell Distribution Width 16.1 % (11.6-14.8) H Platelet Count 265 K/UL (150-450) Mean Platelet Volume 10.3 FL (6.5-10.1) H Neutrophils (%) (Auto) 53.1 % (45.0-75.0) Lymphocytes (%) (Auto) 17.9 % (20.0-45.0) L Monocytes (%) (Auto) 8.5 % (1.0-10.0) Eosinophils (%) (Auto) 19.9 % (0.0-3.0) H Basophils (%) (Auto) 0.6 % (0.0-2.0) Sodium Level 144 MMOL/L (136-145) Potassium Level 4.0 MMOL/L (3.5-5.1) Chloride Level 109 MMOL/L (98-107) H Carbon Dioxide Level 30 MMOL/L (21-32) Anion Gap 5 mmol/L (5-15) Blood Urea Nitrogen 14 mg/dL (7-18) Creatinine 0.9 MG/DL (0.55-1.30) Estimat Glomerular Filtration Rate > 60 mL/min (>60) Glucose Level 93 MG/DL (74-106) Calcium Level 9.0 MG/DL (8.5-10.1) Current Medications Medications (Trade) Dose Ordered Sig/Violette Route PRN Reason Start Time Stop Time Status Last Admin Dose Admin Aspirin (ASA) 81 mg DAILY GT 05/10/18 09:00 06/07/18 08:59 05/15/18 09:41 Atorvastatin Calcium (Lipitor) 20 mg BEDTIME GT 05/09/18 21:00 06/06/18 20:59 05/14/18 21:01 Clotrimazole (Lotrimin) 1 applic THREE TIMES A DAY TOPIC 05/15/18 18:00 06/14/18 17:59 05/15/18 17:42 Dextrose (Dextrose 50%) 25 ml STAT PRN IV Hypoglycemia 05/09/18 18:00 06/06/18 17:59 Dextrose (Dextrose 50%) 50 ml STAT PRN IV Hypoglycemia 05/09/18 18:00 06/06/18 17:59 Diphenhydramine HCl (Benadryl) 25 mg Q6H PRN IVP Itching 05/11/18 21:30 06/10/18 21:29 05/11/18 22:09 Heparin Sodium (Porcine) (Heparin 5000 units/ml) 5,000 units EVERY 12 HOURS SUBQ 05/09/18 21:00 06/06/18 20:59 05/15/18 09:43 Levetiracetam (Keppra) 750 mg Q12HR GT 05/09/18 21:00 06/06/18 20:59 05/15/18 09:40 Lorazepam (Ativan 2mg/ml 1ml) 1 mg Q4H PRN IV For Anxiety 05/10/18 21:45 05/17/18 21:44 05/14/18 21:38 Pantoprazole (Protonix) 40 mg DAILY IVP 05/10/18 09:00 06/07/18 08:59 05/15/18 09:42 Piperacillin Sod/ Tazobactam Sod 3.375 gm/Dextrose 110 ml @ 27.5 mls/hr EVERY 8 HOURS IVPB 05/09/18 22:00 05/16/18 23:00 05/15/18 13:47 Polyethylene Glycol (Miralax) 17 gm DAILY PRN GT Constipation 05/09/18 16:30 06/08/18 16:29 Vancomycin HCl (Vanco rx to dose) 1 ea DAILY PRN MISC Per rx protocol 05/10/18 12:15 06/09/18 12:14 Vancomycin HCl/ Dextrose 250 ml @ 166.667 mls/hr Q12H IVPB 05/14/18 11:00 05/19/18 10:59 05/15/18 11:03 Vitamin D (Vitamin D) 5,000 intlu DAILY GT 05/10/18 09:00 06/07/18 08:59 05/15/18 09:41 Donovan Sheikh M.D. May 15, 2018 18:07
[2018-05-15] MEDS ORDERED: NS 275ml ONE (18:52)
[2018-05-15] MEDS ORDERED: Tubing IV Secondary IV ONE (18:52)
[2018-05-15 20:00] VITALS: BP 133/75
[2018-05-15] MEDS: Atorvastatin 20mg tab GT SCH (20:58)
[2018-05-15] MEDS: LORazepam Inj 2mg/ml 1ml IV PRN (21:27)
[2018-05-16] VITALS: BP 146/74
[2018-05-16 04:00] VITALS: BP 120/70
[2018-05-16] MEDS: Piperacillin/Tazobactam 3.375 GM in D5W 110 ML IVPB SCH ×3 (05:21→23:20)
--- NOTE | 2018-05-16 07:49 | Infectious Diseases Prog Note ---
Assessment/Plan Assessment/Plan Sepsis; resolved- 2ry to PNA (HCAP vs Asp PNA), ?UTI -CXR 05/10: Right lower lung airspace disease has slightly improved since prior study. Similar left lower lobe retrocardiac infiltrate. -CXR: Positive for bilateral lower lung infiltrates, likely pneumonia' -sp cx ESBL E.coli ( S Zosyn, Ertapenem), S. aureus (sensi pending) -u/a wbc 5-10, nit neg, leuk +3; ucx >100k VRE (S amp, tetracycline, Linezolid ) Fever/leukocytosis; resolved R foot ulcer, no signs of infection -R foot xray: Possible soft tissue ulcer overlying the fifth metatarsal head. No plain radiographic evidence of osteomyelitis. Note, however, limited sensitivity of plain radiographs for such. No acute bony trauma HTN COPD/emphysema dysphagia s/p G-tube GERD seizure disorder Plan: Continue to monitor off antibiotics - 05/16/18 S/P Zosyn #10 - 05/15/18 Vanco #9, - 05/12/18 SP Levaquin #6/5 for atypical coverage - 05/09 SP IV Vanco #3 -monitor CBC/CMP, temperatures -GT care -aspiration precautions -wound care per hosp protocol Thank you for this consultation. Will continue to follow along with you. Subjective Allergies: Coded Allergies: No Known Allergies (Unverified , 05/07/18) Subjective Opens eyes ant track. Tries to speak but essentially not verbal Objective Vital Signs Last 24 Hour Vital Signs Date Time Temp Pulse Resp B/P (MAP) Pulse Ox O2 Delivery O2 Flow Rate FiO2 05/16/18 04:00 97.8 66 22 120/70 (87) 95 97.8 05/16/18 00:00 97.8 61 20 146/74 (98) 95 97.8 05/15/18 21:00 Room Air 05/15/18 20:00 97.8 72 20 133/75 (94) 95 97.8 05/15/18 16:00 98.1 70 20 121/77 (92) 99 98.1 05/15/18 12:00 97.8 60 20 110/60 (77) 97 97.8 05/15/18 08:00 97.5 73 18 118/70 (86) 96 97.5 05/15/18 08:00 Room Air Height (Feet): 6 Weight (Pounds): 140 Objective General Appearance: Awake and calm HEENT: NCAT, MMM, EOMI Neck: normal inspection, supple, supple/symm/no masses, Trached Respiratory: CTAB, No Wheezing Cardiovascular: RRR, S1, S2, No M/R/G Gastrointestinal: Soft, NT, ND, +BS Skin: normal color, no rash, warm/dry Laboratory Tests Test 05/15/18 22:53 Vancomycin Level Trough 28.3 ug/mL (5.0-12.0) H Current Medications Medications (Trade) Dose Ordered Sig/Violette Route PRN Reason Start Time Stop Time Status Last Admin Dose Admin Aspirin (ASA) 81 mg DAILY GT 05/10/18 09:00 06/07/18 08:59 05/15/18 09:41 Atorvastatin Calcium (Lipitor) 20 mg BEDTIME GT 05/09/18 21:00 06/06/18 20:59 05/15/18 20:58 Clotrimazole (Lotrimin) 1 applic THREE TIMES A DAY TOPIC 05/15/18 18:00 06/14/18 17:59 05/15/18 17:42 Dextrose (Dextrose 50%) 25 ml STAT PRN IV Hypoglycemia 05/09/18 18:00 06/06/18 17:59 Dextrose (Dextrose 50%) 50 ml STAT PRN IV Hypoglycemia 05/09/18 18:00 06/06/18 17:59 Diphenhydramine HCl (Benadryl) 25 mg Q6H PRN IVP Itching 05/11/18 21:30 06/10/18 21:29 05/11/18 22:09 Heparin Sodium (Porcine) (Heparin 5000 units/ml) 5,000 units EVERY 12 HOURS SUBQ 05/09/18 21:00 06/06/18 20:59 05/15/18 20:58 Levetiracetam (Keppra) 750 mg Q12HR GT 05/09/18 21:00 06/06/18 20:59 05/15/18 20:58 Lorazepam (Ativan 2mg/ml 1ml) 1 mg Q4H PRN IV For Anxiety 05/10/18 21:45 05/17/18 21:44 05/15/18 21:27 Pantoprazole (Protonix) 40 mg DAILY IVP 05/10/18 09:00 06/07/18 08:59 05/15/18 09:42 Piperacillin Sod/ Tazobactam Sod 3.375 gm/Dextrose 110 ml @ 27.5 mls/hr EVERY 8 HOURS IVPB 05/09/18 22:00 05/16/18 23:00 05/16/18 05:21 Polyethylene Glycol (Miralax) 17 gm DAILY PRN GT Constipation 05/09/18 16:30 06/08/18 16:29 Vancomycin HCl (Vanco rx to dose) 1 ea DAILY PRN MISC Per rx protocol 05/10/18 12:15 06/09/18 12:14 Vancomycin/Sodium Chloride 250 ml @ 166.667 mls/hr Q12H IVPB 05/16/18 09:00 05/21/18 08:59 Vitamin D (Vitamin D) 5,000 intlu DAILY GT 05/10/18 09:00 06/07/18 08:59 05/15/18 09:41 Donovan Sheikh M.D. May 16, 2018 07:49
[2018-05-16 08:00] VITALS: BP 115/77
[2018-05-16] MEDS: Vancomycin 750mg/NS 250ml IVPB SCH ×2 (09:04→21:26)
[2018-05-16] MEDS: Pantoprazole Inj IVP SCH (09:04)
[2018-05-16] MEDS: Aspirin Baby 81mg GT SCH (09:04)
[2018-05-16] MEDS: Vitamin D 1000 IU Tab GT SCH (09:05)
[2018-05-16] MEDS: levETIRAcetam 500mg/5ml Liquid GT SCH ×2 (09:08→20:42)
[2018-05-16] MEDS: Heparin 5000 units/ml inj SUBQ SCH ×2 (09:10→20:43)
--- NOTE | 2018-05-16 09:23 | General Progress Note ---
Assessment/Plan Status: stable Assessment/Plan #. Leukocytosis due to underlying sepsis and septic shock. Currently better. --> Currently, he is on broad-spectrum antibiotics. --> Appreciate Infectious Disease Service, Surgical Service as well as Pulmonary team for evaluation of underlying pneumonia, he is being treated for that as well. --> WBC wnl #. Anemia due to underlying chronic disease. --> Continue to closely monitor for improvement. --> Anemia panel has been reviewed. Will trend CBC daily. --> Hemoglobin goal is above 7. #. Coagulopathy likely related to decreased vit k production --> no bleeding diathesis noted #. Hypertension. Systolic blood pressure goal is less than 140. #. Sepsis, secondary to pneumonia. #. Seizure disorder. No recent activity. #. Dysphagia, status post gastrostomy tube. The time the note was entered does not necessarily correspond to the time the patient was seen. Subjective Date patient seen: May 16, 2018 ROS Limited/Unobtainable: Yes Allergies: Coded Allergies: No Known Allergies (Unverified , 05/07/18) All Systems: reviewed and negative except above Subjective Pt awake and alert. No acute events. Vitals are stable. DC planning. Objective Last 24 Hour Vital Signs Date Time Temp Pulse Resp B/P (MAP) Pulse Ox O2 Delivery O2 Flow Rate FiO2 05/16/18 08:00 98.1 69 19 115/77 (90) 100 98.1 05/16/18 04:00 97.8 66 22 120/70 (87) 95 97.8 05/16/18 00:00 97.8 61 20 146/74 (98) 95 97.8 05/15/18 21:00 Room Air 05/15/18 20:00 97.8 72 20 133/75 (94) 95 97.8 05/15/18 16:00 98.1 70 20 121/77 (92) 99 98.1 05/15/18 12:00 97.8 60 20 110/60 (77) 97 97.8 Intake and Output 05/15/18 05/16/18 19:00 07:00 Intake Total 820 ml Output Total 1000 ml Balance -180 ml Intake Free Water 400 ml Tube Feeding 420 ml Output Urine Total 1000 ml Laboratory Tests 05/15/18 22:53: Vancomycin Level Trough 28.3H Height (Feet): 6 Weight (Pounds): 140 General Appearance: no apparent distress EENT: PERRL/EOMI Neck: normal alignment Cardiovascular: normal peripheral pulses Respiratory/Chest: no respiratory distress Abdomen: soft Say Shin MD May 16, 2018 09:23
[2018-05-16 12:00] VITALS: BP 120/87
--- NOTE | 2018-05-16 12:24 | Pulmonology Progress Note ---
Assessment/Plan Problems: (1) Aspiration pneumonia (2) Sepsis (3) COPD (chronic obstructive pulmonary disease) (4) Severe protein-calorie malnutrition (5) Dementia Assessment/Plan social service consult appreciated, Pt will remain full code respiratory treatment titrate fio2 to sat of 92% dvt porphylaxis dc planning in progress Subjective ROS Limited/Unobtainable: No Constitutional: Reports: no symptoms HEENT: Repors: no symptoms Respiratory: Reports: no symptoms Allergies: Coded Allergies: No Known Allergies (Unverified , 05/07/18) Objective Last 24 Hour Vital Signs Date Time Temp Pulse Resp B/P (MAP) Pulse Ox O2 Delivery O2 Flow Rate FiO2 05/16/18 12:00 97.6 70 18 120/87 (98) 99 97.6 05/16/18 09:00 Room Air 05/16/18 08:00 98.1 69 19 115/77 (90) 100 98.1 05/16/18 04:00 97.8 66 22 120/70 (87) 95 97.8 05/16/18 00:00 97.8 61 20 146/74 (98) 95 97.8 05/15/18 21:00 Room Air 05/15/18 20:00 97.8 72 20 133/75 (94) 95 97.8 05/15/18 16:00 98.1 70 20 121/77 (92) 99 98.1 Intake and Output 05/15/18 05/16/18 19:00 07:00 Intake Total 820 ml 60 ml Output Total 1000 ml Balance -180 ml 60 ml Intake Free Water 400 ml Tube Feeding 420 ml 60 ml Output Urine Total 1000 ml General Appearance: WD/WN HEENT: normocephalic, atraumatic Respiratory/Chest: chest wall non-tender, lungs clear Cardiovascular: normal rate, regular rhythm Abdomen: normal bowel sounds, soft, non tender Laboratory Tests 05/15/18 22:53: Vancomycin Level Trough 28.3H Current Medications Medications (Trade) Dose Ordered Sig/Violette Route PRN Reason Start Time Stop Time Status Last Admin Dose Admin Aspirin (ASA) 81 mg DAILY GT 05/10/18 09:00 06/07/18 08:59 05/16/18 09:04 Atorvastatin Calcium (Lipitor) 20 mg BEDTIME GT 05/09/18 21:00 06/06/18 20:59 05/15/18 20:58 Clotrimazole (Lotrimin) 1 applic THREE TIMES A DAY TOPIC 05/15/18 18:00 06/14/18 17:59 05/16/18 09:00 Dextrose (Dextrose 50%) 25 ml STAT PRN IV Hypoglycemia 05/09/18 18:00 06/06/18 17:59 Dextrose (Dextrose 50%) 50 ml STAT PRN IV Hypoglycemia 05/09/18 18:00 06/06/18 17:59 Diphenhydramine HCl (Benadryl) 25 mg Q6H PRN IVP Itching 05/11/18 21:30 06/10/18 21:29 05/11/18 22:09 Heparin Sodium (Porcine) (Heparin 5000 units/ml) 5,000 units EVERY 12 HOURS SUBQ 05/09/18 21:00 06/06/18 20:59 05/16/18 09:10 Levetiracetam (Keppra) 750 mg Q12HR GT 05/09/18 21:00 06/06/18 20:59 05/16/18 09:08 Lorazepam (Ativan 2mg/ml 1ml) 1 mg Q4H PRN IV For Anxiety 05/10/18 21:45 05/17/18 21:44 05/15/18 21:27 Pantoprazole (Protonix) 40 mg DAILY IVP 05/10/18 09:00 06/07/18 08:59 05/16/18 09:04 Piperacillin Sod/ Tazobactam Sod 3.375 gm/Dextrose 110 ml @ 27.5 mls/hr EVERY 8 HOURS IVPB 05/09/18 22:00 05/16/18 23:00 05/16/18 05:21 Polyethylene Glycol (Miralax) 17 gm DAILY PRN GT Constipation 05/09/18 16:30 06/08/18 16:29 Vancomycin HCl (Vanco rx to dose) 1 ea DAILY PRN MISC Per rx protocol 05/10/18 12:15 06/09/18 12:14 Vancomycin/Sodium Chloride 250 ml @ 166.667 mls/hr Q12H IVPB 05/16/18 09:00 05/21/18 08:59 05/16/18 09:04 Vitamin D (Vitamin D) 5,000 intlu DAILY GT 05/10/18 09:00 06/07/18 08:59 05/16/18 09:05 Ta Martinez MD May 16, 2018 12:24
[2018-05-16 16:00] VITALS: BP 117/81
--- NOTE | 2018-05-16 16:53 | Internal Med Progress Note ---
Subjective Date of Service: May 16, 2018 Physician Name Madi Contreras Attending Physician Guillermo Shaw MD Current Medications Medications (Trade) Dose Ordered Sig/Violette Route PRN Reason Start Time Stop Time Status Last Admin Dose Admin Aspirin (ASA) 81 mg DAILY GT 05/10/18 09:00 06/07/18 08:59 05/16/18 09:04 Atorvastatin Calcium (Lipitor) 20 mg BEDTIME GT 05/09/18 21:00 06/06/18 20:59 05/15/18 20:58 Clotrimazole (Lotrimin) 1 applic THREE TIMES A DAY TOPIC 05/15/18 18:00 06/14/18 17:59 05/16/18 12:28 Dextrose (Dextrose 50%) 25 ml STAT PRN IV Hypoglycemia 05/09/18 18:00 06/06/18 17:59 Dextrose (Dextrose 50%) 50 ml STAT PRN IV Hypoglycemia 05/09/18 18:00 06/06/18 17:59 Diphenhydramine HCl (Benadryl) 25 mg Q6H PRN IVP Itching 05/11/18 21:30 06/10/18 21:29 05/11/18 22:09 Heparin Sodium (Porcine) (Heparin 5000 units/ml) 5,000 units EVERY 12 HOURS SUBQ 05/09/18 21:00 06/06/18 20:59 05/16/18 09:10 Levetiracetam (Keppra) 750 mg Q12HR GT 05/09/18 21:00 06/06/18 20:59 05/16/18 09:08 Lorazepam (Ativan 2mg/ml 1ml) 1 mg Q4H PRN IV For Anxiety 05/10/18 21:45 05/17/18 21:44 05/15/18 21:27 Pantoprazole (Protonix) 40 mg DAILY IVP 05/10/18 09:00 06/07/18 08:59 05/16/18 09:04 Piperacillin Sod/ Tazobactam Sod 3.375 gm/Dextrose 110 ml @ 27.5 mls/hr EVERY 8 HOURS IVPB 05/09/18 22:00 05/16/18 23:00 05/16/18 14:04 Polyethylene Glycol (Miralax) 17 gm DAILY PRN GT Constipation 05/09/18 16:30 06/08/18 16:29 Vancomycin HCl (Vanco rx to dose) 1 ea DAILY PRN MISC Per rx protocol 05/10/18 12:15 06/09/18 12:14 Vancomycin/Sodium Chloride 250 ml @ 166.667 mls/hr Q12H IVPB 05/16/18 09:00 05/21/18 08:59 05/16/18 09:04 Vitamin D (Vitamin D) 5,000 intlu DAILY GT 05/10/18 09:00 06/07/18 08:59 05/16/18 09:05 Allergies: Coded Allergies: No Known Allergies (Unverified , 05/07/18) ROS Limited/Unobtainable: Yes Subjective 62 YO M admitted with fever and pneumonia. Now sepsis. Cover for Int Med-Dr Shaw. Objective Last Vital Signs Date Time Temp Pulse Resp B/P (MAP) Pulse Ox O2 Delivery O2 Flow Rate FiO2 05/16/18 16:00 98.1 71 17 117/81 (93) 98 98.1 05/16/18 09:00 Room Air Laboratory Tests Test 05/15/18 22:53 Vancomycin Level Trough 28.3 ug/mL (5.0-12.0) H Intake and Output 05/15/18 05/16/18 19:00 07:00 Intake Total 820 ml 60 ml Output Total 1000 ml Balance -180 ml 60 ml Intake Free Water 400 ml Tube Feeding 420 ml 60 ml Output Urine Total 1000 ml Objective General Appearance: WD/WN, no apparent distress, alert, thin EENT: PERRL/EOMI, normal ENT inspection Neck: non-tender, normal alignment, supple, normal inspection Cardiovascular: normal peripheral pulses, normal rate, regular rhythm, no gallop/murmur, no JVD Respiratory/Chest: chest wall non-tender, lungs clear, normal breath sounds, no respiratory distress, no accessory muscle use Abdomen: normal bowel sounds, non tender, soft, no organomegaly, no mass 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 (5) HTN (hypertension) (6) Seizure disorder Assessment & Plan: Continue keppra (7) Dysphagia Assessment & Plan: G-tube feeds (8) Right foot ulcer Status: stable Assessment/Plan Discharge planning: intermediate fac Madi Contreras MD May 16, 2018 16:53
[2018-05-16 20:00] VITALS: BP 124/71
[2018-05-16] MEDS: Atorvastatin 20mg tab GT SCH (20:42)
[2018-05-16] MEDS: LORazepam Inj 2mg/ml 1ml IV PRN (21:25)
[2018-05-17] VITALS: BP 134/74
[2018-05-17 04:00] VITALS: BP 115/73
[2018-05-17 08:00] VITALS: BP 118/74
[2018-05-17] MEDS: Vitamin D 1000 IU Tab GT SCH (09:03)
[2018-05-17] MEDS: Aspirin Baby 81mg GT SCH (09:03)
[2018-05-17] MEDS: Heparin 5000 units/ml inj SUBQ SCH ×2 (09:04→20:57)
[2018-05-17] MEDS: levETIRAcetam 500mg/5ml Liquid GT SCH ×2 (09:05→20:56)
[2018-05-17] MEDS: Pantoprazole Inj IVP SCH (09:44)
[2018-05-17] MEDS: Vancomycin 750mg/NS 250ml IVPB SCH (09:44)
--- NOTE | 2018-05-17 09:51 | Pulmonology Progress Note ---
Assessment/Plan Problems: (1) Aspiration pneumonia (2) Sepsis (3) COPD (chronic obstructive pulmonary disease) (4) Severe protein-calorie malnutrition (5) Dementia Assessment/Plan social service consult appreciated, Pt will remain full code respiratory treatment titrate fio2 to sat of 92% dvt porphylaxis dc planning in progress Subjective ROS Limited/Unobtainable: No Constitutional: Reports: no symptoms HEENT: Repors: no symptoms Respiratory: Reports: no symptoms Allergies: Coded Allergies: No Known Allergies (Unverified , 05/07/18) Objective Last 24 Hour Vital Signs Date Time Temp Pulse Resp B/P (MAP) Pulse Ox O2 Delivery O2 Flow Rate FiO2 05/17/18 08:00 97.4 80 18 118/74 (89) 95 97.4 05/17/18 04:00 97.7 78 19 115/73 (87) 94 97.7 05/17/18 00:00 98.0 79 19 134/74 (94) 96 98.0 05/16/18 21:00 Room Air 05/16/18 20:00 97.1 55 19 124/71 (88) 99 97.1 05/16/18 16:00 98.1 71 17 117/81 (93) 98 98.1 05/16/18 12:00 97.6 70 18 120/87 (98) 99 97.6 Intake and Output 05/16/18 05/17/18 19:00 07:00 Intake Total 1030.001 ml 1563.334 ml Output Total 550 ml Balance 1030.001 ml 1013.334 ml Intake Free Water 0 ml 400 ml IV Total 610.001 ml 443.334 ml Tube Feeding 420 ml 720 ml Output Urine Total 550 ml General Appearance: cachetic HEENT: normocephalic, anicteric Respiratory/Chest: chest wall non-tender, lungs clear Cardiovascular: normal peripheral pulses, normal rate Abdomen: normal bowel sounds, no organomegaly Genitourinary: normal external genitalia Extremities: no clubbing Skin: no rash Current Medications Medications (Trade) Dose Ordered Sig/Violette Route PRN Reason Start Time Stop Time Status Last Admin Dose Admin Aspirin (ASA) 81 mg DAILY GT 05/10/18 09:00 06/07/18 08:59 05/17/18 09:03 Atorvastatin Calcium (Lipitor) 20 mg BEDTIME GT 05/09/18 21:00 06/06/18 20:59 05/16/18 20:42 Clotrimazole (Lotrimin) 1 applic THREE TIMES A DAY TOPIC 05/15/18 18:00 06/14/18 17:59 05/17/18 09:05 Dextrose (Dextrose 50%) 25 ml STAT PRN IV Hypoglycemia 05/09/18 18:00 06/06/18 17:59 Dextrose (Dextrose 50%) 50 ml STAT PRN IV Hypoglycemia 05/09/18 18:00 06/06/18 17:59 Diphenhydramine HCl (Benadryl) 25 mg Q6H PRN IVP Itching 05/11/18 21:30 06/10/18 21:29 05/11/18 22:09 Heparin Sodium (Porcine) (Heparin 5000 units/ml) 5,000 units EVERY 12 HOURS SUBQ 05/09/18 21:00 06/06/18 20:59 05/17/18 09:04 Levetiracetam (Keppra) 750 mg Q12HR GT 05/09/18 21:00 06/06/18 20:59 05/17/18 09:05 Lorazepam (Ativan 2mg/ml 1ml) 1 mg Q4H PRN IV For Anxiety 05/10/18 21:45 05/17/18 21:44 05/16/18 21:25 Pantoprazole (Protonix) 40 mg DAILY IVP 05/10/18 09:00 06/07/18 08:59 05/17/18 09:44 Polyethylene Glycol (Miralax) 17 gm DAILY PRN GT Constipation 05/09/18 16:30 06/08/18 16:29 Vancomycin HCl (Vanco rx to dose) 1 ea DAILY PRN MISC Per rx protocol 05/10/18 12:15 06/09/18 12:14 Vancomycin/Sodium Chloride 250 ml @ 166.667 mls/hr Q12H IVPB 05/16/18 09:00 05/21/18 08:59 05/17/18 09:44 Vitamin D (Vitamin D) 5,000 intlu DAILY GT 05/10/18 09:00 06/07/18 08:59 05/17/18 09:03 Ta Martinez MD May 17, 2018 09:51
[2018-05-17 12:00] VITALS: BP 122/54
--- NOTE | 2018-05-17 12:35 | Internal Med Progress Note ---
Subjective Date of Service: May 17, 2018 Physician Name Madi Contreras Attending Physician Guillermo Shaw MD Current Medications Medications (Trade) Dose Ordered Sig/Violette Route PRN Reason Start Time Stop Time Status Last Admin Dose Admin Aspirin (ASA) 81 mg DAILY GT 05/10/18 09:00 06/07/18 08:59 05/17/18 09:03 Atorvastatin Calcium (Lipitor) 20 mg BEDTIME GT 05/09/18 21:00 06/06/18 20:59 05/16/18 20:42 Clotrimazole (Lotrimin) 1 applic THREE TIMES A DAY TOPIC 05/15/18 18:00 06/14/18 17:59 05/17/18 09:05 Dextrose (Dextrose 50%) 25 ml STAT PRN IV Hypoglycemia 05/09/18 18:00 06/06/18 17:59 Dextrose (Dextrose 50%) 50 ml STAT PRN IV Hypoglycemia 05/09/18 18:00 06/06/18 17:59 Diphenhydramine HCl (Benadryl) 25 mg Q6H PRN IVP Itching 05/11/18 21:30 06/10/18 21:29 05/11/18 22:09 Heparin Sodium (Porcine) (Heparin 5000 units/ml) 5,000 units EVERY 12 HOURS SUBQ 05/09/18 21:00 06/06/18 20:59 05/17/18 09:04 Levetiracetam (Keppra) 750 mg Q12HR GT 05/09/18 21:00 06/06/18 20:59 05/17/18 09:05 Lorazepam (Ativan 2mg/ml 1ml) 1 mg Q4H PRN IV For Anxiety 05/10/18 21:45 05/17/18 21:44 05/16/18 21:25 Pantoprazole (Protonix) 40 mg DAILY IVP 05/10/18 09:00 06/07/18 08:59 05/17/18 09:44 Polyethylene Glycol (Miralax) 17 gm DAILY PRN GT Constipation 05/09/18 16:30 06/08/18 16:29 Vancomycin HCl (Vanco rx to dose) 1 ea DAILY PRN MISC Per rx protocol 05/10/18 12:15 06/09/18 12:14 Vancomycin/Sodium Chloride 250 ml @ 166.667 mls/hr Q12H IVPB 05/16/18 09:00 05/21/18 08:59 05/17/18 09:44 Vitamin D (Vitamin D) 5,000 intlu DAILY GT 05/10/18 09:00 06/07/18 08:59 05/17/18 09:03 Allergies: Coded Allergies: No Known Allergies (Unverified , 05/07/18) ROS Limited/Unobtainable: Yes Subjective 62 YO M admitted with fever and pneumonia. Now sepsis. Cover for Int Med-Dr Shaw. Objective Last Vital Signs Date Time Temp Pulse Resp B/P (MAP) Pulse Ox O2 Delivery O2 Flow Rate FiO2 05/17/18 08:00 Room Air 05/17/18 08:00 97.4 80 18 118/74 (89) 95 97.4 Intake and Output 05/16/18 05/17/18 19:00 07:00 Intake Total 1030.001 ml 1563.334 ml Output Total 550 ml Balance 1030.001 ml 1013.334 ml Intake Free Water 0 ml 400 ml IV Total 610.001 ml 443.334 ml Tube Feeding 420 ml 720 ml Output Urine Total 550 ml Objective General Appearance: WD/WN, no apparent distress, alert, thin EENT: PERRL/EOMI, normal ENT inspection Neck: non-tender, normal alignment, supple, normal inspection Cardiovascular: normal peripheral pulses, normal rate, regular rhythm, no gallop/murmur, no JVD Respiratory/Chest: chest wall non-tender, lungs clear, normal breath sounds, no respiratory distress, no accessory muscle use Abdomen: normal bowel sounds, non tender, soft, no organomegaly, no mass 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 (5) HTN (hypertension) (6) Seizure disorder Assessment & Plan: Continue keppra (7) Dysphagia Assessment & Plan: G-tube feeds (8) Right foot ulcer Status: stable Assessment/Plan Discharge planning: alf fac Madi Contreras MD May 17, 2018 12:35
--- NOTE | 2018-05-17 13:29 | Infectious Diseases Prog Note ---
Assessment/Plan Assessment/Plan A: Sepsis; Sp PNA (HCAP vs Asp PNA), SP Rx -CXR 05/10: Right lower lung airspace disease has slightly improved since prior study. Similar left lower lobe retrocardiac infiltrate. -CXR: Positive for bilateral lower lung infiltrates, likely pneumonia' ?UTI,SP Rx -sp cx ESBL E.coli ( S Zosyn, Ertapenem), S. aureus (sensi pending) -u/a wbc 5-10, nit neg, leuk +3; ucx >100k VRE (S amp, tetracycline, Linezolid ) Fever/leukocytosis; resolved R foot ulcer, no signs of infection -R foot xray: Possible soft tissue ulcer overlying the fifth metatarsal head. No plain radiographic evidence of osteomyelitis. Note, however, limited sensitivity of plain radiographs for such. No acute bony trauma HTN COPD/emphysema dysphagia s/p G-tube GERD seizure disorder Plan: DC IV Vanco # 11 and monitor pt off of AB Rx - 05/16/18 S/P Zosyn #10 - 05/12/18 SP Levaquin #6/5 for atypical coverage - 05/09 SP IV Vanco #3 -monitor CBC/CMP, temperatures -GT care -aspiration precautions -wound care per hosp protocol Subjective Allergies: Coded Allergies: No Known Allergies (Unverified , 05/07/18) Subjective comfortable Objective Vital Signs Last 24 Hour Vital Signs Date Time Temp Pulse Resp B/P (MAP) Pulse Ox O2 Delivery O2 Flow Rate FiO2 05/17/18 12:00 97.2 53 18 122/54 (76) 100 97.2 05/17/18 08:00 Room Air 05/17/18 08:00 97.4 80 18 118/74 (89) 95 97.4 05/17/18 04:00 97.7 78 19 115/73 (87) 94 97.7 05/17/18 00:00 98.0 79 19 134/74 (94) 96 98.0 05/16/18 21:00 Room Air 05/16/18 20:00 97.1 55 19 124/71 (88) 99 97.1 05/16/18 16:00 98.1 71 17 117/81 (93) 98 98.1 Height (Feet): 6 Weight (Pounds): 140 Respiratory/Chest: no respiratory distress Cardiovascular: regular rhythm Abdomen: no organomegaly Current Medications Medications (Trade) Dose Ordered Sig/Violette Route PRN Reason Start Time Stop Time Status Last Admin Dose Admin Aspirin (ASA) 81 mg DAILY GT 05/10/18 09:00 06/07/18 08:59 05/17/18 09:03 Atorvastatin Calcium (Lipitor) 20 mg BEDTIME GT 05/09/18 21:00 06/06/18 20:59 05/16/18 20:42 Clotrimazole (Lotrimin) 1 applic THREE TIMES A DAY TOPIC 05/15/18 18:00 06/14/18 17:59 05/17/18 09:05 Dextrose (Dextrose 50%) 25 ml STAT PRN IV Hypoglycemia 05/09/18 18:00 06/06/18 17:59 Dextrose (Dextrose 50%) 50 ml STAT PRN IV Hypoglycemia 05/09/18 18:00 06/06/18 17:59 Diphenhydramine HCl (Benadryl) 25 mg Q6H PRN IVP Itching 05/11/18 21:30 06/10/18 21:29 05/11/18 22:09 Heparin Sodium (Porcine) (Heparin 5000 units/ml) 5,000 units EVERY 12 HOURS SUBQ 05/09/18 21:00 06/06/18 20:59 05/17/18 09:04 Levetiracetam (Keppra) 750 mg Q12HR GT 05/09/18 21:00 06/06/18 20:59 05/17/18 09:05 Lorazepam (Ativan 2mg/ml 1ml) 1 mg Q4H PRN IV For Anxiety 05/10/18 21:45 05/17/18 21:44 05/16/18 21:25 Pantoprazole (Protonix) 40 mg DAILY IVP 05/10/18 09:00 06/07/18 08:59 05/17/18 09:44 Polyethylene Glycol (Miralax) 17 gm DAILY PRN GT Constipation 05/09/18 16:30 06/08/18 16:29 Vancomycin HCl (Vanco rx to dose) 1 ea DAILY PRN MISC Per rx protocol 05/10/18 12:15 06/09/18 12:14 Vancomycin/Sodium Chloride 250 ml @ 166.667 mls/hr Q12H IVPB 05/16/18 09:00 05/21/18 08:59 05/17/18 09:44 Vitamin D (Vitamin D) 5,000 intlu DAILY GT 05/10/18 09:00 06/07/18 08:59 05/17/18 09:03 Nico Barboza MD May 17, 2018 13:29
[2018-05-17 16:00] VITALS: BP 122/84
[2018-05-17] MEDS: Atorvastatin 20mg tab GT SCH (20:56)
[2018-05-17] MEDS: DiphenhydrAMINE 50mg/ml Inj IVP PRN (21:08)
[2018-05-17 21:42] VITALS: BP 147/73
[2018-05-18] VITALS: BP 146/55
[2018-05-18 04:00] VITALS: BP 155/97
[2018-05-18 08:00] VITALS: BP 148/99
[2018-05-18] MEDS ORDERED: Tubing IV Secondary IV ONE (09:09)
[2018-05-18] MEDS: Pantoprazole Inj IVP SCH (09:18)
[2018-05-18] MEDS: Aspirin Baby 81mg GT SCH (09:19)
[2018-05-18] MEDS: Vitamin D 1000 IU Tab GT SCH (09:19)
[2018-05-18] MEDS: levETIRAcetam 500mg/5ml Liquid GT SCH ×2 (09:20→20:37)
[2018-05-18] MEDS: Heparin 5000 units/ml inj SUBQ SCH ×2 (09:21→20:39)
[2018-05-18 12:00] VITALS: BP 146/85
--- NOTE | 2018-05-18 13:39 | Internal Med Progress Note ---
Subjective Date of Service: May 18, 2018 Physician Name Madi Contreras Attending Physician Guillermo Shaw MD Current Medications Medications (Trade) Dose Ordered Sig/Violette Route PRN Reason Start Time Stop Time Status Last Admin Dose Admin Aspirin (ASA) 81 mg DAILY GT 05/10/18 09:00 06/07/18 08:59 05/18/18 09:19 Atorvastatin Calcium (Lipitor) 20 mg BEDTIME GT 05/09/18 21:00 06/06/18 20:59 05/17/18 20:56 Clotrimazole (Lotrimin) 1 applic THREE TIMES A DAY TOPIC 05/15/18 18:00 06/14/18 17:59 05/18/18 13:28 Dextrose (Dextrose 50%) 25 ml STAT PRN IV Hypoglycemia 05/09/18 18:00 06/06/18 17:59 Dextrose (Dextrose 50%) 50 ml STAT PRN IV Hypoglycemia 05/09/18 18:00 06/06/18 17:59 Diphenhydramine HCl (Benadryl) 25 mg Q6H PRN IVP Itching 05/11/18 21:30 06/10/18 21:29 05/17/18 21:08 Heparin Sodium (Porcine) (Heparin 5000 units/ml) 5,000 units EVERY 12 HOURS SUBQ 05/09/18 21:00 06/06/18 20:59 05/18/18 09:21 Levetiracetam (Keppra) 750 mg Q12HR GT 05/09/18 21:00 06/06/18 20:59 05/18/18 09:20 Lorazepam (Ativan 2mg/ml 1ml) 1 mg Q4H PRN IV For Anxiety 05/18/18 07:51 05/25/18 07:50 Pantoprazole (Protonix) 40 mg DAILY IVP 05/10/18 09:00 06/07/18 08:59 05/18/18 09:18 Polyethylene Glycol (Miralax) 17 gm DAILY PRN GT Constipation 05/09/18 16:30 06/08/18 16:29 Vitamin D (Vitamin D) 5,000 intlu DAILY GT 05/10/18 09:00 06/07/18 08:59 05/18/18 09:19 Allergies: Coded Allergies: No Known Allergies (Unverified , 05/07/18) ROS Limited/Unobtainable: Yes Subjective 62 YO M admitted with fever and pneumonia. Now sepsis. Cover for Int Med-Dr Shaw. Objective Last Vital Signs Date Time Temp Pulse Resp B/P (MAP) Pulse Ox O2 Delivery O2 Flow Rate FiO2 05/18/18 12:00 98.0 71 18 146/85 (105) 98 98.0 05/18/18 08:30 Room Air Intake and Output 05/17/18 05/18/18 19:00 07:00 Intake Total 880 ml 1120 ml Output Total 1000 ml 650 ml Balance -120 ml 470 ml Intake Free Water 400 ml 460 ml Tube Feeding 480 ml 660 ml Output Urine Total 1000 ml 650 ml Objective General Appearance: WD/WN, no apparent distress, alert, thin EENT: PERRL/EOMI, normal ENT inspection Neck: non-tender, normal alignment, supple, normal inspection Cardiovascular: normal peripheral pulses, normal rate, regular rhythm, no gallop/murmur, no JVD Respiratory/Chest: chest wall non-tender, lungs clear, normal breath sounds, no respiratory distress, no accessory muscle use Abdomen: normal bowel sounds, non tender, soft, no organomegaly, no mass 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 (5) HTN (hypertension) (6) Seizure disorder Assessment & Plan: Continue keppra (7) Dysphagia Assessment & Plan: G-tube feeds (8) Right foot ulcer Assessment/Plan Discharge planning: longterm fac Madi Contreras MD May 18, 2018 13:39
--- NOTE | 2018-05-18 14:55 | Pulmonology Progress Note ---
Assessment/Plan Problems: (1) Aspiration pneumonia (2) Sepsis (3) COPD (chronic obstructive pulmonary disease) (4) Severe protein-calorie malnutrition (5) Dementia Assessment/Plan no new events respiratory treatment titrate fio2 to sat of 92% dvt porphylaxis dc planning in progress Subjective ROS Limited/Unobtainable: No Constitutional: Reports: no symptoms HEENT: Repors: no symptoms Respiratory: Reports: no symptoms Allergies: Coded Allergies: No Known Allergies (Unverified , 05/07/18) Objective Last 24 Hour Vital Signs Date Time Temp Pulse Resp B/P (MAP) Pulse Ox O2 Delivery O2 Flow Rate FiO2 05/18/18 12:00 98.0 71 18 146/85 (105) 98 98.0 05/18/18 08:30 Room Air 05/18/18 08:00 97.5 86 18 148/99 (115) 100 97.5 05/18/18 04:00 98.2 75 18 155/97 (116) 100 98.2 05/18/18 00:00 97.0 85 20 146/55 (85) 100 97.0 05/17/18 21:42 66 147/73 (97) 05/17/18 21:00 Room Air 05/17/18 20:00 97.9 75 20 91 97.9 05/17/18 16:00 97.5 75 19 122/84 (97) 99 97.5 Intake and Output 05/17/18 05/18/18 19:00 07:00 Intake Total 880 ml 1120 ml Output Total 1000 ml 650 ml Balance -120 ml 470 ml Intake Free Water 400 ml 460 ml Tube Feeding 480 ml 660 ml Output Urine Total 1000 ml 650 ml General Appearance: no acute distress, cachetic HEENT: normocephalic Respiratory/Chest: chest wall non-tender, lungs clear Cardiovascular: normal peripheral pulses, normal rate Abdomen: normal bowel sounds, no organomegaly Extremities: no cyanosis Current Medications Medications (Trade) Dose Ordered Sig/Violette Route PRN Reason Start Time Stop Time Status Last Admin Dose Admin Aspirin (ASA) 81 mg DAILY GT 05/10/18 09:00 06/07/18 08:59 05/18/18 09:19 Atorvastatin Calcium (Lipitor) 20 mg BEDTIME GT 05/09/18 21:00 06/06/18 20:59 05/17/18 20:56 Clotrimazole (Lotrimin) 1 applic THREE TIMES A DAY TOPIC 05/15/18 18:00 06/14/18 17:59 05/18/18 13:28 Dextrose (Dextrose 50%) 25 ml STAT PRN IV Hypoglycemia 05/09/18 18:00 06/06/18 17:59 Dextrose (Dextrose 50%) 50 ml STAT PRN IV Hypoglycemia 05/09/18 18:00 06/06/18 17:59 Diphenhydramine HCl (Benadryl) 25 mg Q6H PRN IVP Itching 05/11/18 21:30 06/10/18 21:29 05/17/18 21:08 Heparin Sodium (Porcine) (Heparin 5000 units/ml) 5,000 units EVERY 12 HOURS SUBQ 05/09/18 21:00 06/06/18 20:59 05/18/18 09:21 Levetiracetam (Keppra) 750 mg Q12HR GT 05/09/18 21:00 06/06/18 20:59 05/18/18 09:20 Lorazepam (Ativan 2mg/ml 1ml) 1 mg Q4H PRN IV For Anxiety 05/18/18 07:51 05/25/18 07:50 Pantoprazole (Protonix) 40 mg DAILY IVP 05/10/18 09:00 06/07/18 08:59 05/18/18 09:18 Polyethylene Glycol (Miralax) 17 gm DAILY PRN GT Constipation 05/09/18 16:30 06/08/18 16:29 Vitamin D (Vitamin D) 5,000 intlu DAILY GT 05/10/18 09:00 06/07/18 08:59 05/18/18 09:19 Ta Martinez MD May 18, 2018 14:55
[2018-05-18 16:00] VITALS: BP 143/81
[2018-05-18 20:00] VITALS: BP 139/79
--- NOTE | 2018-05-18 20:35 | General Progress Note ---
Assessment/Plan Assessment/Plan #. Leukocytosis due to underlying sepsis and septic shock. Currently better --> improved infection, s/p abx, now off abx --> no need to repeat vanc levels --> imaging improved --> WBC wnl #. Anemia due to underlying chronic disease. --> Continue to closely monitor for stability --> Anemia panel has been reviewed. Will trend CBC as needed --> Hemoglobin goal is above 7. #. Coagulopathy likely related to decreased vit k production --> no bleeding diathesis noted #. Hypertension. Systolic blood pressure goal is less than 140. #. Sepsis, secondary to pneumonia. #. Seizure disorder. No recent activity. #. Dysphagia, status post gastrostomy tube. The time the note was entered does not necessarily correspond to the time the patient was seen. Subjective Date patient seen: May 17, 2018 Constitutional: Denies: no symptoms, chills, diaphoresis, fever, malaise, weakness, other HEENT: Denies: no symptoms, eye pain, blurred vision, tearing, double vision, ear pain, ear discharge, nose pain, nose congestion, throat pain, throat swelling, mouth pain, mouth swelling, other Cardiovascular: Denies: no symptoms, chest pain, edema, irregular heart rate, lightheadedness, palpitations, syncope, other Hematologic/Lymphatic: Denies: no symptoms, anemia, easy bleeding, easy bruising, other Allergies: Coded Allergies: No Known Allergies (Unverified , 05/07/18) All Systems: reviewed and negative except above Subjective Pt awake and alert. No acute events. Vitals are stable. DC planning in progress Objective Last 24 Hour Vital Signs Date Time Temp Pulse Resp B/P (MAP) Pulse Ox O2 Delivery O2 Flow Rate FiO2 05/18/18 16:00 97.9 75 18 143/81 (101) 99 97.9 05/18/18 12:00 98.0 71 18 146/85 (105) 98 98.0 05/18/18 08:30 Room Air 05/18/18 08:00 97.5 86 18 148/99 (115) 100 97.5 05/18/18 04:00 98.2 75 18 155/97 (116) 100 98.2 05/18/18 00:00 97.0 85 20 146/55 (85) 100 97.0 05/17/18 21:42 66 147/73 (97) 05/17/18 21:00 Room Air Intake and Output 05/17/18 05/18/18 19:00 07:00 Intake Total 880 ml 1120 ml Output Total 1000 ml 650 ml Balance -120 ml 470 ml Intake Free Water 400 ml 460 ml Tube Feeding 480 ml 660 ml Output Urine Total 1000 ml 650 ml Height (Feet): 6 Weight (Pounds): 140 General Appearance: alert EENT: TMs normal Neck: non-tender Cardiovascular: normal rate Respiratory/Chest: normal breath sounds Extremities: normal range of motion Edema: 1+ Leg (L), 1+ Leg (R) Neurologic: alert Skin: warm/dry Say Shin MD May 18, 2018 20:35
[2018-05-18] MEDS: Atorvastatin 20mg tab GT SCH (20:37)
[2018-05-19] VITALS: BP 121/95
[2018-05-19 04:00] VITALS: BP 126/78
[2018-05-19 06:19] LABS: BASOPHILS % (AUTO) 0.6 % (0.0-2.0); HEMATOCRIT 31.4 % (42.0-52.0); HEMOGLOBIN 10.1 G/DL (14.2-18.0); LYMPHOCYTES % (AUTO) 14.6 % (20.0-45.0); MEAN CORPUSCULAR VOLUME 73 FL (80-99); MONOCYTES % (AUTO) 4.9 % (1.0-10.0); NEUTROPHILS % (AUTO) 61.8 % (45.0-75.0); PLATELET COUNT 281 K/UL (150-450); RED BLOOD COUNT 4.28 M/UL (4.70-6.10); RED CELL DISTRIBUTION WIDTH 17.3 % (11.6-14.8)
[2018-05-19 06:20] LABS: ANION GAP 2 mmol/L (5-15); BLOOD UREA NITROGEN 20 mg/dL (7-18); CALCIUM 9.8 MG/DL (8.5-10.1); CARBON DIOXIDE 31 MMOL/L (21-32); CHLORIDE 112 MMOL/L (98-107); CREATININE 0.9 MG/DL (0.55-1.30); POTASSIUM 4.4 MMOL/L (3.5-5.1); SODIUM 145 MMOL/L (136-145)
[2018-05-19] MEDS: levETIRAcetam 500mg/5ml Liquid GT SCH ×2 (08:32→21:44)
[2018-05-19] MEDS: Aspirin Baby 81mg GT SCH (08:32)
[2018-05-19] MEDS: Vitamin D 1000 IU Tab GT SCH (08:32)
[2018-05-19] MEDS: Heparin 5000 units/ml inj SUBQ SCH ×2 (08:35→21:47)
[2018-05-19 08:38] VITALS: BP 121/82
[2018-05-19] MEDS: Pantoprazole Inj IVP SCH (09:34)
--- NOTE | 2018-05-19 09:45 | General Progress Note ---
Assessment/Plan Status: stable Assessment/Plan #. Leukocytosis due to underlying sepsis and septic shock. Currently better --> improved infection, s/p abx, now off abx --> no need to repeat vanc levels --> imaging improved --> WBC wnl #. Anemia due to underlying chronic disease. --> Continue to closely monitor for stability --> Anemia panel has been reviewed. Will trend CBC as needed --> Hemoglobin goal is above 7. #. Coagulopathy likely related to decreased vit k production --> no bleeding diathesis noted #. Hypertension. Systolic blood pressure goal is less than 140. #. Sepsis, secondary to pneumonia. #. Seizure disorder. No recent activity. #. Dysphagia, status post gastrostomy tube. The time the note was entered does not necessarily correspond to the time the patient was seen. Subjective Date patient seen: May 18, 2018 ROS Limited/Unobtainable: Yes Hematologic/Lymphatic: Reports: anemia Allergies: Coded Allergies: No Known Allergies (Unverified , 05/07/18) All Systems: reviewed and negative except above Subjective Pt awake and alert. No acute events. Vitals are stable. Objective Last 24 Hour Vital Signs Date Time Temp Pulse Resp B/P (MAP) Pulse Ox O2 Delivery O2 Flow Rate FiO2 05/19/18 09:00 Room Air 05/19/18 08:38 96.3 67 18 121/82 (95) 99 96.3 05/19/18 04:00 97.8 77 20 126/78 (94) 98 97.8 05/19/18 00:00 89 23 121/95 (104) 05/18/18 21:00 Room Air 05/18/18 21:00 Room Air 05/18/18 20:00 97.9 84 18 139/79 (99) 100 97.9 05/18/18 16:00 97.9 75 18 143/81 (101) 99 97.9 05/18/18 12:00 98.0 71 18 146/85 (105) 98 98.0 Intake and Output 05/18/18 05/19/18 19:00 07:00 Intake Total 900 ml 1050 ml Output Total 300 ml 650 ml Balance 600 ml 400 ml Intake Free Water 360 ml 330 ml Tube Feeding 540 ml 720 ml Output Urine Total 300 ml 650 ml Laboratory Tests 05/19/18 05:30: White Blood Count 9.0, Red Blood Count 4.28L, Hemoglobin 10.1L, Hematocrit 31.4L , Mean Corpuscular Volume 73L, Mean Corpuscular Hemoglobin 23.6L, Mean Corpuscular Hemoglobin Concent 32.2, Red Cell Distribution Width 17.3H, Platelet Count 281, Mean Platelet Volume 9.4, Neutrophils (%) (Auto) 61.8, Lymphocytes (%) (Auto) 14.6L, Monocytes (%) (Auto) 4.9, Eosinophils (%) (Auto) 18.0H, Basophils (%) (Auto) 0.6, Sodium Level 145, Potassium Level 4.4, Chloride Level 112H, Carbon Dioxide Level 31, Anion Gap 2L, Blood Urea Nitrogen 20H, Creatinine 0.9, Estimat Glomerular Filtration Rate > 60, Glucose Level 96, Calcium Level 9.8 Height (Feet): 6 Weight (Pounds): 140 General Appearance: no apparent distress EENT: PERRL/EOMI Neck: normal alignment Cardiovascular: normal peripheral pulses Respiratory/Chest: no respiratory distress Abdomen: soft Say Shin MD May 19, 2018 09:45
--- NOTE | 2018-05-19 10:47 | Infectious Diseases Prog Note ---
Assessment/Plan Assessment/Plan Sepsis; resolved- 2ry to PNA (HCAP vs Asp PNA), ?UTI -CXR 05/10: Right lower lung airspace disease has slightly improved since prior study. Similar left lower lobe retrocardiac infiltrate. -CXR: Positive for bilateral lower lung infiltrates, likely pneumonia' -sp cx ESBL E.coli ( S Zosyn, Ertapenem), S. aureus (sensi pending) -u/a wbc 5-10, nit neg, leuk +3; ucx >100k VRE (S amp, tetracycline, Linezolid ) Fever/leukocytosis; resolved R foot ulcer, no signs of infection -R foot xray: Possible soft tissue ulcer overlying the fifth metatarsal head. No plain radiographic evidence of osteomyelitis. Note, however, limited sensitivity of plain radiographs for such. No acute bony trauma HTN COPD/emphysema dysphagia s/p G-tube GERD seizure disorder Plan: Continue to monitor off antibiotics for sign of infection - 05/16/18 S/P Zosyn #11 - 05/15/18 Vanco #9, - 05/12/18 SP Levaquin #6/5 for atypical coverage - 05/09 SP IV Vanco #3 -monitor CBC/CMP, temperatures -GT care -aspiration precautions -wound care per hosp protocol Thank you for this consultation. Will continue to follow along with you. Subjective Allergies: Coded Allergies: No Known Allergies (Unverified , 05/07/18) Subjective Opens eyes and tracks. No acute events over night Afebrile Objective Vital Signs Last 24 Hour Vital Signs Date Time Temp Pulse Resp B/P (MAP) Pulse Ox O2 Delivery O2 Flow Rate FiO2 05/19/18 09:00 Room Air 05/19/18 08:38 96.3 67 18 121/82 (95) 99 96.3 05/19/18 04:00 97.8 77 20 126/78 (94) 98 97.8 05/19/18 00:00 89 23 121/95 (104) 05/18/18 21:00 Room Air 05/18/18 21:00 Room Air 05/18/18 20:00 97.9 84 18 139/79 (99) 100 97.9 05/18/18 16:00 97.9 75 18 143/81 (101) 99 97.9 05/18/18 12:00 98.0 71 18 146/85 (105) 98 98.0 Height (Feet): 6 Weight (Pounds): 140 Objective General: Awake and calm HEENT: NCAT, MMM, EOMI, No scleral icterus Neck: Trached Respiratory: CTAB, No Wheezing Cardiovascular: RRR, S1, S2, No M/R/G Gastrointestinal: Soft, NT, ND, +BS Skin: normal color, no rash, warm/dry Laboratory Tests Test 05/19/18 05:30 White Blood Count 9.0 K/UL (4.8-10.8) Red Blood Count 4.28 M/UL (4.70-6.10) L Hemoglobin 10.1 G/DL (14.2-18.0) L Hematocrit 31.4 % (42.0-52.0) L Mean Corpuscular Volume 73 FL (80-99) L Mean Corpuscular Hemoglobin 23.6 PG (27.0-31.0) L Mean Corpuscular Hemoglobin Concent 32.2 G/DL (32.0-36.0) Red Cell Distribution Width 17.3 % (11.6-14.8) H Platelet Count 281 K/UL (150-450) Mean Platelet Volume 9.4 FL (6.5-10.1) Neutrophils (%) (Auto) 61.8 % (45.0-75.0) Lymphocytes (%) (Auto) 14.6 % (20.0-45.0) L Monocytes (%) (Auto) 4.9 % (1.0-10.0) Eosinophils (%) (Auto) 18.0 % (0.0-3.0) H Basophils (%) (Auto) 0.6 % (0.0-2.0) Sodium Level 145 MMOL/L (136-145) Potassium Level 4.4 MMOL/L (3.5-5.1) Chloride Level 112 MMOL/L (98-107) H Carbon Dioxide Level 31 MMOL/L (21-32) Anion Gap 2 mmol/L (5-15) L Blood Urea Nitrogen 20 mg/dL (7-18) H Creatinine 0.9 MG/DL (0.55-1.30) Estimat Glomerular Filtration Rate > 60 mL/min (>60) Glucose Level 96 MG/DL (74-106) Calcium Level 9.8 MG/DL (8.5-10.1) Current Medications Medications (Trade) Dose Ordered Sig/Violette Route PRN Reason Start Time Stop Time Status Last Admin Dose Admin Aspirin (ASA) 81 mg DAILY GT 05/10/18 09:00 06/07/18 08:59 05/19/18 08:32 Atorvastatin Calcium (Lipitor) 20 mg BEDTIME GT 05/09/18 21:00 06/06/18 20:59 05/18/18 20:37 Clotrimazole (Lotrimin) 1 applic THREE TIMES A DAY TOPIC 05/15/18 18:00 06/14/18 17:59 05/19/18 08:32 Dextrose (Dextrose 50%) 25 ml STAT PRN IV Hypoglycemia 05/09/18 18:00 06/06/18 17:59 Dextrose (Dextrose 50%) 50 ml STAT PRN IV Hypoglycemia 05/09/18 18:00 06/06/18 17:59 Diphenhydramine HCl (Benadryl) 25 mg Q6H PRN IVP Itching 05/11/18 21:30 06/10/18 21:29 05/17/18 21:08 Heparin Sodium (Porcine) (Heparin 5000 units/ml) 5,000 units EVERY 12 HOURS SUBQ 05/09/18 21:00 06/06/18 20:59 05/19/18 08:35 Levetiracetam (Keppra) 750 mg Q12HR GT 05/09/18 21:00 06/06/18 20:59 05/19/18 08:32 Lorazepam (Ativan 2mg/ml 1ml) 1 mg Q4H PRN IV For Anxiety 05/18/18 07:51 05/25/18 07:50 Pantoprazole (Protonix) 40 mg DAILY IVP 05/10/18 09:00 06/07/18 08:59 05/19/18 09:34 Polyethylene Glycol (Miralax) 17 gm DAILY PRN GT Constipation 05/09/18 16:30 06/08/18 16:29 Vitamin D (Vitamin D) 5,000 intlu DAILY GT 05/10/18 09:00 06/07/18 08:59 05/19/18 08:32 Donovan Sheikh M.D. May 19, 2018 10:47
--- NOTE | 2018-05-19 11:16 | Internal Med Progress Note ---
Subjective Date of Service: May 19, 2018 Physician Name Madi Contreras Attending Physician Guillermo Shaw MD Current Medications Medications (Trade) Dose Ordered Sig/Violette Route PRN Reason Start Time Stop Time Status Last Admin Dose Admin Aspirin (ASA) 81 mg DAILY GT 05/10/18 09:00 06/07/18 08:59 05/19/18 08:32 Atorvastatin Calcium (Lipitor) 20 mg BEDTIME GT 05/09/18 21:00 06/06/18 20:59 05/18/18 20:37 Clotrimazole (Lotrimin) 1 applic THREE TIMES A DAY TOPIC 05/15/18 18:00 06/14/18 17:59 05/19/18 08:32 Dextrose (Dextrose 50%) 25 ml STAT PRN IV Hypoglycemia 05/09/18 18:00 06/06/18 17:59 Dextrose (Dextrose 50%) 50 ml STAT PRN IV Hypoglycemia 05/09/18 18:00 06/06/18 17:59 Diphenhydramine HCl (Benadryl) 25 mg Q6H PRN IVP Itching 05/11/18 21:30 06/10/18 21:29 05/17/18 21:08 Heparin Sodium (Porcine) (Heparin 5000 units/ml) 5,000 units EVERY 12 HOURS SUBQ 05/09/18 21:00 06/06/18 20:59 05/19/18 08:35 Levetiracetam (Keppra) 750 mg Q12HR GT 05/09/18 21:00 06/06/18 20:59 05/19/18 08:32 Lorazepam (Ativan 2mg/ml 1ml) 1 mg Q4H PRN IV For Anxiety 05/18/18 07:51 05/25/18 07:50 Pantoprazole (Protonix) 40 mg DAILY IVP 05/10/18 09:00 06/07/18 08:59 05/19/18 09:34 Polyethylene Glycol (Miralax) 17 gm DAILY PRN GT Constipation 05/09/18 16:30 06/08/18 16:29 Vitamin D (Vitamin D) 5,000 intlu DAILY GT 05/10/18 09:00 06/07/18 08:59 05/19/18 08:32 Allergies: Coded Allergies: No Known Allergies (Unverified , 05/07/18) ROS Limited/Unobtainable: Yes Subjective 62 YO M admitted with fever and pneumonia. Now sepsis. Cover for Int Med-Dr Shaw. Await intermediate facility placement. Objective Last Vital Signs Date Time Temp Pulse Resp B/P (MAP) Pulse Ox O2 Delivery O2 Flow Rate FiO2 05/19/18 09:00 Room Air 05/19/18 08:38 96.3 67 18 121/82 (95) 99 96.3 Laboratory Tests Test 05/19/18 05:30 White Blood Count 9.0 K/UL (4.8-10.8) Red Blood Count 4.28 M/UL (4.70-6.10) L Hemoglobin 10.1 G/DL (14.2-18.0) L Hematocrit 31.4 % (42.0-52.0) L Mean Corpuscular Volume 73 FL (80-99) L Mean Corpuscular Hemoglobin 23.6 PG (27.0-31.0) L Mean Corpuscular Hemoglobin Concent 32.2 G/DL (32.0-36.0) Red Cell Distribution Width 17.3 % (11.6-14.8) H Platelet Count 281 K/UL (150-450) Mean Platelet Volume 9.4 FL (6.5-10.1) Neutrophils (%) (Auto) 61.8 % (45.0-75.0) Lymphocytes (%) (Auto) 14.6 % (20.0-45.0) L Monocytes (%) (Auto) 4.9 % (1.0-10.0) Eosinophils (%) (Auto) 18.0 % (0.0-3.0) H Basophils (%) (Auto) 0.6 % (0.0-2.0) Sodium Level 145 MMOL/L (136-145) Potassium Level 4.4 MMOL/L (3.5-5.1) Chloride Level 112 MMOL/L (98-107) H Carbon Dioxide Level 31 MMOL/L (21-32) Anion Gap 2 mmol/L (5-15) L Blood Urea Nitrogen 20 mg/dL (7-18) H Creatinine 0.9 MG/DL (0.55-1.30) Estimat Glomerular Filtration Rate > 60 mL/min (>60) Glucose Level 96 MG/DL (74-106) Calcium Level 9.8 MG/DL (8.5-10.1) Intake and Output 05/18/18 05/19/18 19:00 07:00 Intake Total 900 ml 1050 ml Output Total 300 ml 650 ml Balance 600 ml 400 ml Intake Free Water 360 ml 330 ml Tube Feeding 540 ml 720 ml Output Urine Total 300 ml 650 ml Objective General Appearance: WD/WN, no apparent distress, alert, thin EENT: PERRL/EOMI, normal ENT inspection Neck: non-tender, normal alignment, supple, normal inspection Cardiovascular: normal peripheral pulses, normal rate, regular rhythm, no gallop/murmur, no JVD Respiratory/Chest: chest wall non-tender, lungs clear, normal breath sounds, no respiratory distress, no accessory muscle use Abdomen: normal bowel sounds, non tender, soft, no organomegaly, no mass Neurologic: floor polisher II-XII grossly normal, no motor/sensory deficits Skin: normal pigmentation Assessment/Plan Problem List: (1) Fever (2) Pneumonia Assessment & Plan: Resolving; D/C vanco and Zosyn per ID (3) Leukocytosis (4) Anemia, chronic disease Assessment & Plan: s/ee heme note. (5) HTN (hypertension) (6) Seizure disorder Assessment & Plan: Continue keppra (7) Dysphagia Assessment & Plan: G-tube feeds (8) Right foot ulcer Status: stable Assessment/Plan Discharge planning: intermediate fac Madi Contreras MD May 19, 2018 11:15
[2018-05-19 12:00] VITALS: BP 122/77
--- NOTE | 2018-05-19 14:57 | Pulmonology Progress Note ---
Assessment/Plan Problems: (1) Aspiration pneumonia (2) Sepsis (3) COPD (chronic obstructive pulmonary disease) (4) Severe protein-calorie malnutrition (5) Dementia Assessment/Plan all reviewed no new events respiratory treatment titrate fio2 to sat of 92% dvt porphylaxis dc planning in progress Subjective ROS Limited/Unobtainable: No Constitutional: Reports: no symptoms HEENT: Repors: no symptoms Respiratory: Reports: no symptoms Allergies: Coded Allergies: No Known Allergies (Unverified , 05/07/18) Objective Last 24 Hour Vital Signs Date Time Temp Pulse Resp B/P (MAP) Pulse Ox O2 Delivery O2 Flow Rate FiO2 05/19/18 12:00 96.6 66 18 122/77 (92) 97 96.6 05/19/18 09:00 Room Air 05/19/18 08:38 96.3 67 18 121/82 (95) 99 96.3 05/19/18 04:00 97.8 77 20 126/78 (94) 98 97.8 05/19/18 00:00 89 23 121/95 (104) 05/18/18 21:00 Room Air 05/18/18 21:00 Room Air 05/18/18 20:00 97.9 84 18 139/79 (99) 100 97.9 05/18/18 16:00 97.9 75 18 143/81 (101) 99 97.9 Intake and Output 05/18/18 05/19/18 19:00 07:00 Intake Total 900 ml 1050 ml Output Total 300 ml 650 ml Balance 600 ml 400 ml Intake Free Water 360 ml 330 ml Tube Feeding 540 ml 720 ml Output Urine Total 300 ml 650 ml General Appearance: WD/WN HEENT: normocephalic, atraumatic Respiratory/Chest: chest wall non-tender, normal breath sounds Cardiovascular: normal peripheral pulses, normal rate Abdomen: normal bowel sounds Genitourinary: normal external genitalia Skin: no rash, no lesions Laboratory Tests 05/19/18 05:30: White Blood Count 9.0, Red Blood Count 4.28L, Hemoglobin 10.1L, Hematocrit 31.4L , Mean Corpuscular Volume 73L, Mean Corpuscular Hemoglobin 23.6L, Mean Corpuscular Hemoglobin Concent 32.2, Red Cell Distribution Width 17.3H, Platelet Count 281, Mean Platelet Volume 9.4, Neutrophils (%) (Auto) 61.8, Lymphocytes (%) (Auto) 14.6L, Monocytes (%) (Auto) 4.9, Eosinophils (%) (Auto) 18.0H, Basophils (%) (Auto) 0.6, Sodium Level 145, Potassium Level 4.4, Chloride Level 112H, Carbon Dioxide Level 31, Anion Gap 2L, Blood Urea Nitrogen 20H, Creatinine 0.9, Estimat Glomerular Filtration Rate > 60, Glucose Level 96, Calcium Level 9.8 Current Medications Medications (Trade) Dose Ordered Sig/Violette Route PRN Reason Start Time Stop Time Status Last Admin Dose Admin Aspirin (ASA) 81 mg DAILY GT 05/10/18 09:00 06/07/18 08:59 05/19/18 08:32 Atorvastatin Calcium (Lipitor) 20 mg BEDTIME GT 05/09/18 21:00 06/06/18 20:59 05/18/18 20:37 Clotrimazole (Lotrimin) 1 applic THREE TIMES A DAY TOPIC 05/15/18 18:00 06/14/18 17:59 05/19/18 13:59 Dextrose (Dextrose 50%) 25 ml STAT PRN IV Hypoglycemia 05/09/18 18:00 06/06/18 17:59 Dextrose (Dextrose 50%) 50 ml STAT PRN IV Hypoglycemia 05/09/18 18:00 06/06/18 17:59 Diphenhydramine HCl (Benadryl) 25 mg Q6H PRN IVP Itching 05/11/18 21:30 06/10/18 21:29 05/17/18 21:08 Heparin Sodium (Porcine) (Heparin 5000 units/ml) 5,000 units EVERY 12 HOURS SUBQ 05/09/18 21:00 06/06/18 20:59 05/19/18 08:35 Levetiracetam (Keppra) 750 mg Q12HR GT 05/09/18 21:00 06/06/18 20:59 05/19/18 08:32 Lorazepam (Ativan 2mg/ml 1ml) 1 mg Q4H PRN IV For Anxiety 05/18/18 07:51 05/25/18 07:50 Pantoprazole (Protonix) 40 mg DAILY IVP 05/10/18 09:00 06/07/18 08:59 05/19/18 09:34 Polyethylene Glycol (Miralax) 17 gm DAILY PRN GT Constipation 05/09/18 16:30 06/08/18 16:29 Vitamin D (Vitamin D) 5,000 intlu DAILY GT 05/10/18 09:00 06/07/18 08:59 05/19/18 08:32 Ta Martinez MD May 19, 2018 14:57
[2018-05-19 15:51] VITALS: BP 129/73
--- NOTE | 2018-05-19 17:52 | General Progress Note ---
Assessment/Plan Status: stable Assessment/Plan #. Leukocytosis due to underlying sepsis and septic shock. Currently better --> improved infection, s/p abx, now off abx --> no need to repeat vanc levels --> imaging improved --> 05/19: WBC of 9.0 wnl #. Anemia due to underlying chronic disease. --> Continue to closely monitor for stability --> Anemia panel has been reviewed. Will trend CBC as needed --> Hemoglobin goal is above 7 --> 05/19: Hgb of 10.1 #. Coagulopathy likely related to decreased vit k production --> no bleeding diathesis noted #. Hypertension. Systolic blood pressure goal is less than 140. #. Sepsis, secondary to pneumonia. #. Seizure disorder. No recent activity. #. Dysphagia, status post gastrostomy tube. The time the note was entered does not necessarily correspond to the time the patient was seen. Subjective Date patient seen: May 19, 2018 ROS Limited/Unobtainable: Yes Hematologic/Lymphatic: Reports: anemia Allergies: Coded Allergies: No Known Allergies (Unverified , 05/07/18) All Systems: reviewed and negative except above Subjective Pt awake and alert. No acute events. Vitals are stable. DC planning. Objective Last 24 Hour Vital Signs Date Time Temp Pulse Resp B/P (MAP) Pulse Ox O2 Delivery O2 Flow Rate FiO2 05/19/18 15:51 96.9 68 18 129/73 (91) 98 96.9 05/19/18 12:00 96.6 66 18 122/77 (92) 97 96.6 05/19/18 09:00 Room Air 05/19/18 08:38 96.3 67 18 121/82 (95) 99 96.3 05/19/18 04:00 97.8 77 20 126/78 (94) 98 97.8 05/19/18 00:00 89 23 121/95 (104) 05/18/18 21:00 Room Air 05/18/18 21:00 Room Air 05/18/18 20:00 97.9 84 18 139/79 (99) 100 97.9 Intake and Output 05/18/18 05/19/18 19:00 07:00 Intake Total 900 ml 1050 ml Output Total 300 ml 650 ml Balance 600 ml 400 ml Intake Free Water 360 ml 330 ml Tube Feeding 540 ml 720 ml Output Urine Total 300 ml 650 ml Laboratory Tests 05/19/18 05:30: White Blood Count 9.0, Red Blood Count 4.28L, Hemoglobin 10.1L, Hematocrit 31.4L , Mean Corpuscular Volume 73L, Mean Corpuscular Hemoglobin 23.6L, Mean Corpuscular Hemoglobin Concent 32.2, Red Cell Distribution Width 17.3H, Platelet Count 281, Mean Platelet Volume 9.4, Neutrophils (%) (Auto) 61.8, Lymphocytes (%) (Auto) 14.6L, Monocytes (%) (Auto) 4.9, Eosinophils (%) (Auto) 18.0H, Basophils (%) (Auto) 0.6, Sodium Level 145, Potassium Level 4.4, Chloride Level 112H, Carbon Dioxide Level 31, Anion Gap 2L, Blood Urea Nitrogen 20H, Creatinine 0.9, Estimat Glomerular Filtration Rate > 60, Glucose Level 96, Calcium Level 9.8 Height (Feet): 6 Weight (Pounds): 140 General Appearance: no apparent distress, alert EENT: PERRL/EOMI Neck: normal alignment Cardiovascular: normal peripheral pulses Respiratory/Chest: no respiratory distress Abdomen: soft Say Shin MD May 19, 2018 17:52
[2018-05-19 20:00] VITALS: BP 102/58
--- NOTE | 2018-05-19 20:35 | General Surgery Progress Note ---
General Surgery-Progress Note Subjective Additional Comments left hip and right foot wounds improved. stage II sacral Objective Last 24 Hour Vital Signs Date Time Temp Pulse Resp B/P (MAP) Pulse Ox O2 Delivery O2 Flow Rate FiO2 05/19/18 15:51 96.9 68 18 129/73 (91) 98 96.9 05/19/18 12:00 96.6 66 18 122/77 (92) 97 96.6 05/19/18 09:00 Room Air 05/19/18 08:38 96.3 67 18 121/82 (95) 99 96.3 05/19/18 04:00 97.8 77 20 126/78 (94) 98 97.8 05/19/18 00:00 89 23 121/95 (104) 05/18/18 21:00 Room Air 05/18/18 21:00 Room Air I&O Intake and Output 05/18/18 05/19/18 19:00 07:00 Intake Total 900 ml 1050 ml Output Total 300 ml 650 ml Balance 600 ml 400 ml Intake Free Water 360 ml 330 ml Tube Feeding 540 ml 720 ml Output Urine Total 300 ml 650 ml Laboratory Tests Test 05/19/18 05:30 White Blood Count 9.0 K/UL (4.8-10.8) Red Blood Count 4.28 M/UL (4.70-6.10) L Hemoglobin 10.1 G/DL (14.2-18.0) L Hematocrit 31.4 % (42.0-52.0) L Mean Corpuscular Volume 73 FL (80-99) L Mean Corpuscular Hemoglobin 23.6 PG (27.0-31.0) L Mean Corpuscular Hemoglobin Concent 32.2 G/DL (32.0-36.0) Red Cell Distribution Width 17.3 % (11.6-14.8) H Platelet Count 281 K/UL (150-450) Mean Platelet Volume 9.4 FL (6.5-10.1) Neutrophils (%) (Auto) 61.8 % (45.0-75.0) Lymphocytes (%) (Auto) 14.6 % (20.0-45.0) L Monocytes (%) (Auto) 4.9 % (1.0-10.0) Eosinophils (%) (Auto) 18.0 % (0.0-3.0) H Basophils (%) (Auto) 0.6 % (0.0-2.0) Sodium Level 145 MMOL/L (136-145) Potassium Level 4.4 MMOL/L (3.5-5.1) Chloride Level 112 MMOL/L (98-107) H Carbon Dioxide Level 31 MMOL/L (21-32) Anion Gap 2 mmol/L (5-15) L Blood Urea Nitrogen 20 mg/dL (7-18) H Creatinine 0.9 MG/DL (0.55-1.30) Estimat Glomerular Filtration Rate > 60 mL/min (>60) Glucose Level 96 MG/DL (74-106) Calcium Level 9.8 MG/DL (8.5-10.1) Plan Problems: (1) Sepsis Assessment & Plan: IV Abx as per ID (2) Abrasion, left hip, initial encounter Assessment & Plan: superficial abrasion of left hip. likely pressure related. limited to skin. stage II. foam dressings. keep off wound. skin protectant. turn q2h. improving cont with current care (3) Right foot ulcer Assessment & Plan: right lateral mid foot and distal foot ulcer. mid foot ulcer 2cm and distal ulcer 1cm. no active drainage. some edema of foot but no significant cellulitis. no signs of active infection and likely chronic. no odor. unstageable. xray - Possible soft tissue ulcer overlying the fifth metatarsal head. No plain radiographic evidence of osteomyelitis. No acute bony trauma -foam dressings -skin protectant -will order plain films -keep off wounds -heel protectors -turn q2h. improving. cont with current care (4) Sacral decubitus ulcer, stage II Assessment & Plan: skin protectant foam dressing need to keep off turn q2h decrease load on wound. will need to monitor closely Darion Banks May 19, 2018 20:35
[2018-05-19] MEDS: Atorvastatin 20mg tab GT SCH (21:45)
[2018-05-19] MEDS: LORazepam Inj 2mg/ml 1ml IV PRN (23:00)
[2018-05-20] VITALS: BP 134/65
[2018-05-20 04:00] VITALS: BP 147/80
--- NOTE | 2018-05-20 07:55 | Infectious Diseases Prog Note ---
Assessment/Plan Assessment/Plan Sepsis; resolved- 2ry to PNA (HCAP vs Asp PNA), ?UTI -CXR 05/10: Right lower lung airspace disease has slightly improved since prior study. Similar left lower lobe retrocardiac infiltrate. -CXR: Positive for bilateral lower lung infiltrates, likely pneumonia' -sp cx ESBL E.coli ( S Zosyn, Ertapenem), S. aureus (sensi pending) -u/a wbc 5-10, nit neg, leuk +3; ucx >100k VRE (S amp, tetracycline, Linezolid ) Fever/leukocytosis; resolved R foot ulcer, no signs of infection -R foot xray: Possible soft tissue ulcer overlying the fifth metatarsal head. No plain radiographic evidence of osteomyelitis. Note, however, limited sensitivity of plain radiographs for such. No acute bony trauma HTN COPD/emphysema dysphagia s/p G-tube GERD seizure disorder Plan: Continue to monitor off antibiotics for sign of infections - 05/16/18 S/P Zosyn #11 - 05/15/18 Vanco #9, - 05/12/18 SP Levaquin #6/5 for atypical coverage - 05/09 SP IV Vanco #3 -Monitor CBC/CMP, temperatures -GT care -Aspiration precautions -Wound care per hosp protocol Thank you for this consultation. Will continue to follow along with you. Subjective Allergies: Coded Allergies: No Known Allergies (Unverified , 05/07/18) Subjective Track intermittently nonverbal Afebrile Objective Vital Signs Last 24 Hour Vital Signs Date Time Temp Pulse Resp B/P (MAP) Pulse Ox O2 Delivery O2 Flow Rate FiO2 05/20/18 04:00 98.2 72 19 147/80 (102) 96 98.2 05/20/18 00:00 98.2 68 18 134/65 (88) 100 98.2 05/19/18 21:00 Room Air 05/19/18 20:00 97.9 64 17 102/58 (73) 99 97.9 05/19/18 15:51 96.9 68 18 129/73 (91) 98 96.9 05/19/18 12:00 96.6 66 18 122/77 (92) 97 96.6 05/19/18 09:00 Room Air 05/19/18 08:38 96.3 67 18 121/82 (95) 99 96.3 Height (Feet): 6 Weight (Pounds): 140 Objective General: Awake and calm today HEENT: NCAT, MMM, EOMI, No scleral icterus, Trach in place Respiratory: CTAB, No Wheezing Cardiovascular: RRR, S1, S2, No M/R/G Gastrointestinal: Soft, NT, ND, +BS Skin: normal color, no rash, warm/dry Current Medications Medications (Trade) Dose Ordered Sig/Violette Route PRN Reason Start Time Stop Time Status Last Admin Dose Admin Aspirin (ASA) 81 mg DAILY GT 05/10/18 09:00 06/07/18 08:59 05/19/18 08:32 Atorvastatin Calcium (Lipitor) 20 mg BEDTIME GT 05/09/18 21:00 06/06/18 20:59 05/19/18 21:45 Clotrimazole (Lotrimin) 1 applic THREE TIMES A DAY TOPIC 05/15/18 18:00 06/14/18 17:59 05/19/18 17:59 Dextrose (Dextrose 50%) 25 ml STAT PRN IV Hypoglycemia 05/09/18 18:00 06/06/18 17:59 Dextrose (Dextrose 50%) 50 ml STAT PRN IV Hypoglycemia 05/09/18 18:00 06/06/18 17:59 Diphenhydramine HCl (Benadryl) 25 mg Q6H PRN IVP Itching 05/11/18 21:30 06/10/18 21:29 05/17/18 21:08 Heparin Sodium (Porcine) (Heparin 5000 units/ml) 5,000 units EVERY 12 HOURS SUBQ 05/09/18 21:00 06/06/18 20:59 05/19/18 21:47 Levetiracetam (Keppra) 750 mg Q12HR GT 05/09/18 21:00 06/06/18 20:59 05/19/18 21:44 Lorazepam (Ativan 2mg/ml 1ml) 1 mg Q4H PRN IV For Anxiety 05/18/18 07:51 05/25/18 07:50 05/19/18 23:00 Pantoprazole (Protonix) 40 mg DAILY IVP 05/10/18 09:00 06/07/18 08:59 05/19/18 09:34 Polyethylene Glycol (Miralax) 17 gm DAILY PRN GT Constipation 05/09/18 16:30 06/08/18 16:29 Vitamin D (Vitamin D) 5,000 intlu DAILY GT 05/10/18 09:00 06/07/18 08:59 05/19/18 08:32 Donovan Sheikh M.D. May 20, 2018 07:55
[2018-05-20 08:00] VITALS: BP 142/67
[2018-05-20] MEDS: Vitamin D 1000 IU Tab GT SCH (08:41)
[2018-05-20] MEDS: Aspirin Baby 81mg GT SCH (08:41)
[2018-05-20] MEDS: levETIRAcetam 500mg/5ml Liquid GT SCH ×2 (08:42→20:42)
[2018-05-20] MEDS: Pantoprazole Inj IVP SCH (08:42)
[2018-05-20] MEDS: Heparin 5000 units/ml inj SUBQ SCH ×2 (08:44→20:42)
[2018-05-20 11:55] VITALS: BP 137/84
--- NOTE | 2018-05-20 13:49 | Pulmonology Progress Note ---
Assessment/Plan Problems: (1) Aspiration pneumonia (2) Sepsis (3) COPD (chronic obstructive pulmonary disease) (4) Severe protein-calorie malnutrition (5) Dementia Assessment/Plan all reviewed no new events respiratory treatment titrate fio2 to sat of 92% dvt porphylaxis dc planning in progress Subjective ROS Limited/Unobtainable: No Constitutional: Reports: no symptoms HEENT: Repors: no symptoms Respiratory: Reports: no symptoms Allergies: Coded Allergies: No Known Allergies (Unverified , 05/07/18) Objective Last 24 Hour Vital Signs Date Time Temp Pulse Resp B/P (MAP) Pulse Ox O2 Delivery O2 Flow Rate FiO2 05/20/18 11:55 97.4 76 17 137/84 (101) 95 97.4 05/20/18 09:00 Room Air 05/20/18 08:00 98.6 69 17 142/67 (92) 95 98.6 05/20/18 04:00 98.2 72 19 147/80 (102) 96 98.2 05/20/18 00:00 98.2 68 18 134/65 (88) 100 98.2 05/19/18 21:00 Room Air 05/19/18 20:00 97.9 64 17 102/58 (73) 99 97.9 05/19/18 15:51 96.9 68 18 129/73 (91) 98 96.9 Intake and Output 05/19/18 05/20/18 19:00 07:00 Intake Total 880 ml 1500 ml Output Total 450 ml Balance 880 ml 1050 ml Intake Free Water 400 ml 600 ml Tube Feeding 480 ml 900 ml Output Urine Total 450 ml # Voids 3 General Appearance: WD/WN HEENT: normocephalic, atraumatic Respiratory/Chest: chest wall non-tender, lungs clear Cardiovascular: normal peripheral pulses, normal rate Abdomen: soft, non tender, non distended Extremities: no cyanosis Skin: no rash Current Medications Medications (Trade) Dose Ordered Sig/Violette Route PRN Reason Start Time Stop Time Status Last Admin Dose Admin Aspirin (ASA) 81 mg DAILY GT 05/10/18 09:00 06/07/18 08:59 05/20/18 08:41 Atorvastatin Calcium (Lipitor) 20 mg BEDTIME GT 05/09/18 21:00 06/06/18 20:59 05/19/18 21:45 Clotrimazole (Lotrimin) 1 applic THREE TIMES A DAY TOPIC 05/15/18 18:00 06/14/18 17:59 05/20/18 12:29 Dextrose (Dextrose 50%) 25 ml STAT PRN IV Hypoglycemia 05/09/18 18:00 06/06/18 17:59 Dextrose (Dextrose 50%) 50 ml STAT PRN IV Hypoglycemia 05/09/18 18:00 06/06/18 17:59 Diphenhydramine HCl (Benadryl) 25 mg Q6H PRN IVP Itching 05/11/18 21:30 06/10/18 21:29 05/17/18 21:08 Heparin Sodium (Porcine) (Heparin 5000 units/ml) 5,000 units EVERY 12 HOURS SUBQ 05/09/18 21:00 06/06/18 20:59 05/20/18 08:44 Levetiracetam (Keppra) 750 mg Q12HR GT 05/09/18 21:00 06/06/18 20:59 05/20/18 08:42 Lorazepam (Ativan 2mg/ml 1ml) 1 mg Q4H PRN IV For Anxiety 05/18/18 07:51 05/25/18 07:50 05/19/18 23:00 Pantoprazole (Protonix) 40 mg DAILY IVP 05/10/18 09:00 06/07/18 08:59 05/20/18 08:42 Polyethylene Glycol (Miralax) 17 gm DAILY PRN GT Constipation 05/09/18 16:30 06/08/18 16:29 Vitamin D (Vitamin D) 5,000 intlu DAILY GT 05/10/18 09:00 06/07/18 08:59 05/20/18 08:41 Ta Martinez MD May 20, 2018 13:49
--- NOTE | 2018-05-20 15:19 | General Progress Note ---
Assessment/Plan Status: unchanged Assessment/Plan #. Leukocytosis due to underlying sepsis and septic shock. Currently better --> improved infection, s/p abx, now off abx --> no need to repeat vanc levels --> imaging improved --> 05/19: WBC of 9.0 wnl #. Anemia due to underlying chronic disease. --> Continue to closely monitor for stability --> Anemia panel has been reviewed. Will trend CBC as needed --> Hemoglobin goal is above 7 --> 05/19: Hgb of 10.1 #. Coagulopathy likely related to decreased vit k production --> no bleeding diathesis noted #. Hypertension. Systolic blood pressure goal is less than 140. #. Sepsis, secondary to pneumonia. #. Seizure disorder. No recent activity. #. Dysphagia, status post gastrostomy tube. The time the note was entered does not necessarily correspond to the time the patient was seen. Subjective Date patient seen: May 20, 2018 ROS Limited/Unobtainable: Yes Hematologic/Lymphatic: Reports: anemia Allergies: Coded Allergies: No Known Allergies (Unverified , 05/07/18) All Systems: reviewed and negative except above Subjective Pt awake and confused. No acute events. DC planning. Objective Last 24 Hour Vital Signs Date Time Temp Pulse Resp B/P (MAP) Pulse Ox O2 Delivery O2 Flow Rate FiO2 05/20/18 11:55 97.4 76 17 137/84 (101) 95 97.4 05/20/18 09:00 Room Air 05/20/18 08:00 98.6 69 17 142/67 (92) 95 98.6 05/20/18 04:00 98.2 72 19 147/80 (102) 96 98.2 05/20/18 00:00 98.2 68 18 134/65 (88) 100 98.2 05/19/18 21:00 Room Air 05/19/18 20:00 97.9 64 17 102/58 (73) 99 97.9 05/19/18 15:51 96.9 68 18 129/73 (91) 98 96.9 Intake and Output 05/19/18 05/20/18 19:00 07:00 Intake Total 880 ml 1500 ml Output Total 450 ml Balance 880 ml 1050 ml Intake Free Water 400 ml 600 ml Tube Feeding 480 ml 900 ml Output Urine Total 450 ml # Voids 3 Height (Feet): 6 Weight (Pounds): 140 General Appearance: no apparent distress, confused EENT: PERRL/EOMI Neck: normal alignment Cardiovascular: normal peripheral pulses Respiratory/Chest: no respiratory distress Abdomen: soft Say Shin MD May 20, 2018 15:19
[2018-05-20 16:00] VITALS: BP 136/64
--- NOTE | 2018-05-20 17:22 | Internal Med Progress Note ---
Subjective Date of Service: May 20, 2018 Physician Name Madi Contreras Attending Physician Guillermo Shaw MD Current Medications Medications (Trade) Dose Ordered Sig/Violette Route PRN Reason Start Time Stop Time Status Last Admin Dose Admin Aspirin (ASA) 81 mg DAILY GT 05/10/18 09:00 06/07/18 08:59 05/20/18 08:41 Atorvastatin Calcium (Lipitor) 20 mg BEDTIME GT 05/09/18 21:00 06/06/18 20:59 05/19/18 21:45 Clotrimazole (Lotrimin) 1 applic THREE TIMES A DAY TOPIC 05/15/18 18:00 06/14/18 17:59 05/20/18 12:29 Dextrose (Dextrose 50%) 25 ml STAT PRN IV Hypoglycemia 05/09/18 18:00 06/06/18 17:59 Dextrose (Dextrose 50%) 50 ml STAT PRN IV Hypoglycemia 05/09/18 18:00 06/06/18 17:59 Diphenhydramine HCl (Benadryl) 25 mg Q6H PRN IVP Itching 05/11/18 21:30 06/10/18 21:29 05/17/18 21:08 Heparin Sodium (Porcine) (Heparin 5000 units/ml) 5,000 units EVERY 12 HOURS SUBQ 05/09/18 21:00 06/06/18 20:59 05/20/18 08:44 Levetiracetam (Keppra) 750 mg Q12HR GT 05/09/18 21:00 06/06/18 20:59 05/20/18 08:42 Lorazepam (Ativan 2mg/ml 1ml) 1 mg Q4H PRN IV For Anxiety 05/18/18 07:51 05/25/18 07:50 05/19/18 23:00 Pantoprazole (Protonix) 40 mg DAILY IVP 05/10/18 09:00 06/07/18 08:59 05/20/18 08:42 Polyethylene Glycol (Miralax) 17 gm DAILY PRN GT Constipation 05/09/18 16:30 06/08/18 16:29 Vitamin D (Vitamin D) 5,000 intlu DAILY GT 05/10/18 09:00 06/07/18 08:59 05/20/18 08:41 Allergies: Coded Allergies: No Known Allergies (Unverified , 05/07/18) ROS Limited/Unobtainable: Yes Subjective 62 YO M admitted with fever and pneumonia. Now sepsis. Cover for Int Med-Dr Shaw. Await long-term facility placement. Objective Last Vital Signs Date Time Temp Pulse Resp B/P (MAP) Pulse Ox O2 Delivery O2 Flow Rate FiO2 05/20/18 16:00 97.2 82 18 136/64 (88) 99 97.2 05/20/18 09:00 Room Air Intake and Output 05/19/18 05/20/18 19:00 07:00 Intake Total 880 ml 1500 ml Output Total 450 ml Balance 880 ml 1050 ml Intake Free Water 400 ml 600 ml Tube Feeding 480 ml 900 ml Output Urine Total 450 ml # Voids 3 Objective General Appearance: WD/WN, no apparent distress, alert, thin EENT: PERRL/EOMI, normal ENT inspection Neck: non-tender, normal alignment, supple, normal inspection Cardiovascular: normal peripheral pulses, normal rate, regular rhythm, no gallop/murmur, no JVD Respiratory/Chest: chest wall non-tender, lungs clear, normal breath sounds, no respiratory distress, no accessory muscle use Abdomen: normal bowel sounds, non tender, soft, no organomegaly, no mass 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 (5) HTN (hypertension) (6) Seizure disorder Assessment & Plan: Continue keppra (7) Dysphagia Assessment & Plan: G-tube feeds (8) Right foot ulcer Assessment/Plan Discharge planning: [facility] Madi Contreras MD May 20, 2018 17:22
[2018-05-20 20:32] VITALS: BP 131/67
[2018-05-20] MEDS: Atorvastatin 20mg tab GT SCH (20:41)
[2018-05-21 00:25] VITALS: BP 114/85
[2018-05-21] MEDS: LORazepam Inj 2mg/ml 1ml IV PRN (02:15)
[2018-05-21 04:05] VITALS: BP 118/79
--- NOTE | 2018-05-21 06:27 | General Progress Note ---
Assessment/Plan Assessment/Plan #. Leukocytosis due to underlying sepsis and septic shock. Currently better --> improved infection, s/p abx, now off abx --> no need to repeat vanc levels --> imaging improved --> 05/19: WBC of 9.0 wnl #. Anemia due to underlying chronic disease. --> Continue to closely monitor for stability --> Anemia panel has been reviewed. Will trend CBC as needed --> Hemoglobin goal is above 7 --> 05/19: Hgb of 10.1 #. Coagulopathy likely related to decreased vit k production --> no bleeding diathesis noted --> INR has been checked #. Hypertension. Systolic blood pressure goal is less than 140. #. Sepsis, secondary to pneumonia. #. Seizure disorder. No recent activity. #. Dysphagia, status post gastrostomy tube. The time the note was entered does not necessarily correspond to the time the patient was seen. Subjective Allergies: Coded Allergies: No Known Allergies (Unverified , 05/07/18) All Systems: reviewed and negative except above Subjective Pt awake and confused. No acute events. DC planning in progress Objective Last 24 Hour Vital Signs Date Time Temp Pulse Resp B/P (MAP) Pulse Ox O2 Delivery O2 Flow Rate FiO2 05/21/18 04:05 97.4 79 19 118/79 (92) 98 97.4 05/21/18 00:25 97.6 81 18 114/85 (95) 98 97.6 05/20/18 21:24 Room Air 05/20/18 20:32 97.5 75 19 131/67 (88) 99 97.5 05/20/18 16:00 97.2 82 18 136/64 (88) 99 97.2 05/20/18 11:55 97.4 76 17 137/84 (101) 95 97.4 05/20/18 09:00 Room Air 05/20/18 08:00 98.6 69 17 142/67 (92) 95 98.6 Intake and Output 05/20/18 05/21/18 19:00 07:00 Intake Total 940 ml 740 ml Balance 940 ml 740 ml Intake Free Water 400 ml 200 ml Tube Feeding 540 ml 540 ml Height (Feet): 6 Weight (Pounds): 140 General Appearance: alert EENT: TMs normal Neck: supple Cardiovascular: regular rhythm Respiratory/Chest: normal breath sounds Abdomen: no organomegaly, other - + gtube Extremities: normal range of motion Edema: 1+ Leg (L), 1+ Leg (R) Edema: mild edema Neurologic: alert Skin: warm/dry Say Shin MD May 21, 2018 06:27
[2018-05-21 07:23] LABS: INR 1.1 (0.9-1.1)
[2018-05-21 08:00] VITALS: BP 124/79
[2018-05-21] MEDS: Vitamin D 1000 IU Tab GT SCH (08:05)
[2018-05-21] MEDS: Aspirin Baby 81mg GT SCH (08:05)
[2018-05-21] MEDS: Pantoprazole Inj IVP SCH (08:06)
[2018-05-21] MEDS: levETIRAcetam 500mg/5ml Liquid GT SCH ×2 (08:06→20:33)
[2018-05-21] MEDS: Heparin 5000 units/ml inj SUBQ SCH ×2 (08:23→20:34)
--- NOTE | 2018-05-21 11:45 | Infectious Diseases Prog Note ---
Assessment/Plan Assessment/Plan Sepsis; resolved- 2ry to PNA (HCAP vs Asp PNA), ?UTI -CXR 05/10: Right lower lung airspace disease has slightly improved since prior study. Similar left lower lobe retrocardiac infiltrate. -CXR: Positive for bilateral lower lung infiltrates, likely pneumonia' -sp cx ESBL E.coli ( S Zosyn, Ertapenem), S. aureus (sensi pending) -u/a wbc 5-10, nit neg, leuk +3; ucx >100k VRE (S amp, tetracycline, Linezolid ) Fever/leukocytosis; resolved R foot ulcer, no signs of infection -R foot xray: Possible soft tissue ulcer overlying the fifth metatarsal head. No plain radiographic evidence of osteomyelitis. Note, however, limited sensitivity of plain radiographs for such. No acute bony trauma HTN COPD/emphysema dysphagia s/p G-tube GERD seizure disorder Plan: Continue to monitor off antibiotics as clinically stable - 05/16/18 S/P Zosyn #11 - 05/15/18 Vanco #9, - 05/12/18 SP Levaquin #6/5 for atypical coverage - 05/09 SP IV Vanco #3 -Monitor CBC/CMP, temperatures -GT care -Aspiration precautions -Wound care per hosp protocol Thank you for this consultation. Will continue to follow along with you. Subjective Allergies: Coded Allergies: No Known Allergies (Unverified , 05/07/18) Subjective Track intermittently nonverbal Afebrile overnight Objective Vital Signs Last 24 Hour Vital Signs Date Time Temp Pulse Resp B/P (MAP) Pulse Ox O2 Delivery O2 Flow Rate FiO2 05/21/18 09:00 Room Air 05/21/18 08:00 98.1 89 20 124/79 (94) 98 98.1 05/21/18 04:05 97.4 79 19 118/79 (92) 98 97.4 05/21/18 00:25 97.6 81 18 114/85 (95) 98 97.6 05/20/18 21:24 Room Air 05/20/18 20:32 97.5 75 19 131/67 (88) 99 97.5 05/20/18 16:00 97.2 82 18 136/64 (88) 99 97.2 05/20/18 11:55 97.4 76 17 137/84 (101) 95 97.4 Height (Feet): 6 Weight (Pounds): 141 Respiratory/Chest: chest wall non-tender Objective General: NAD HEENT: NCAT, MMM, Trach in place Respiratory: CTAB, No Wheezing Cardiovascular: RRR, S1, S2, No M/R/G Gastrointestinal: Soft, NT, ND, +BS Skin: normal color, no rash, warm/dry Laboratory Tests Test 05/21/18 06:50 Prothrombin Time 11.3 SEC (9.30-11.50) Prothromb Time International Ratio 1.1 (0.9-1.1) Current Medications Medications (Trade) Dose Ordered Sig/Violette Route PRN Reason Start Time Stop Time Status Last Admin Dose Admin Aspirin (ASA) 81 mg DAILY GT 05/10/18 09:00 06/07/18 08:59 05/21/18 08:05 Atorvastatin Calcium (Lipitor) 20 mg BEDTIME GT 05/09/18 21:00 06/06/18 20:59 05/20/18 20:41 Clotrimazole (Lotrimin) 1 applic THREE TIMES A DAY TOPIC 05/15/18 18:00 06/14/18 17:59 05/21/18 08:06 Dextrose (Dextrose 50%) 25 ml STAT PRN IV Hypoglycemia 05/09/18 18:00 06/06/18 17:59 Dextrose (Dextrose 50%) 50 ml STAT PRN IV Hypoglycemia 05/09/18 18:00 06/06/18 17:59 Diphenhydramine HCl (Benadryl) 25 mg Q6H PRN IVP Itching 05/11/18 21:30 06/10/18 21:29 05/17/18 21:08 Heparin Sodium (Porcine) (Heparin 5000 units/ml) 5,000 units EVERY 12 HOURS SUBQ 05/09/18 21:00 06/06/18 20:59 05/21/18 08:23 Levetiracetam (Keppra) 750 mg Q12HR GT 05/09/18 21:00 06/06/18 20:59 05/21/18 08:06 Lorazepam (Ativan 2mg/ml 1ml) 1 mg Q4H PRN IV For Anxiety 05/18/18 07:51 05/25/18 07:50 8/8/18 02:15 Pantoprazole (Protonix) 40 mg DAILY IVP 05/10/18 09:00 06/07/18 08:59 05/21/18 08:06 Polyethylene Glycol (Miralax) 17 gm DAILY PRN GT Constipation 05/09/18 16:30 06/08/18 16:29 Vitamin D (Vitamin D) 5,000 intlu DAILY GT 05/10/18 09:00 06/07/18 08:59 05/21/18 08:05 Donovan Sheikh M.D. May 21, 2018 11:45
[2018-05-21 12:00] VITALS: BP 133/85
--- NOTE | 2018-05-21 12:40 | Internal Med Progress Note ---
Subjective Date of Service: May 21, 2018 Physician Name DianeMadi Attending Physician Guillermo Shaw MD Current Medications Medications (Trade) Dose Ordered Sig/Violette Route PRN Reason Start Time Stop Time Status Last Admin Dose Admin Aspirin (ASA) 81 mg DAILY GT 05/10/18 09:00 06/07/18 08:59 05/21/18 08:05 Atorvastatin Calcium (Lipitor) 20 mg BEDTIME GT 05/09/18 21:00 06/06/18 20:59 05/20/18 20:41 Clotrimazole (Lotrimin) 1 applic THREE TIMES A DAY TOPIC 05/15/18 18:00 06/14/18 17:59 05/21/18 08:06 Dextrose (Dextrose 50%) 25 ml STAT PRN IV Hypoglycemia 05/09/18 18:00 06/06/18 17:59 Dextrose (Dextrose 50%) 50 ml STAT PRN IV Hypoglycemia 05/09/18 18:00 06/06/18 17:59 Diphenhydramine HCl (Benadryl) 25 mg Q6H PRN IVP Itching 05/11/18 21:30 06/10/18 21:29 05/17/18 21:08 Heparin Sodium (Porcine) (Heparin 5000 units/ml) 5,000 units EVERY 12 HOURS SUBQ 05/09/18 21:00 06/06/18 20:59 05/21/18 08:23 Levetiracetam (Keppra) 750 mg Q12HR GT 05/09/18 21:00 06/06/18 20:59 05/21/18 08:06 Lorazepam (Ativan 2mg/ml 1ml) 1 mg Q4H PRN IV For Anxiety 05/18/18 07:51 05/25/18 07:50 05/21/18 02:15 Pantoprazole (Protonix) 40 mg DAILY IVP 05/10/18 09:00 06/07/18 08:59 05/21/18 08:06 Polyethylene Glycol (Miralax) 17 gm DAILY PRN GT Constipation 05/09/18 16:30 06/08/18 16:29 Vitamin D (Vitamin D) 5,000 intlu DAILY GT 05/10/18 09:00 06/07/18 08:59 05/21/18 08:05 Allergies: Coded Allergies: No Known Allergies (Unverified , 05/07/18) ROS Limited/Unobtainable: Yes Subjective 62 YO M admitted with fever and pneumonia. Now sepsis. Cover for Int Med-Dr Shaw. Await [facility] facility placement. Objective Last Vital Signs Date Time Temp Pulse Resp B/P (MAP) Pulse Ox O2 Delivery O2 Flow Rate FiO2 05/21/18 12:00 97.7 73 20 133/85 (101) 96 97.7 05/21/18 09:00 Room Air Laboratory Tests Test 05/21/18 06:50 Prothrombin Time 11.3 SEC (9.30-11.50) Prothromb Time International Ratio 1.1 (0.9-1.1) Intake and Output 05/20/18 05/21/18 19:00 07:00 Intake Total 940 ml 800 ml Output Total 700 ml Balance 940 ml 100 ml Intake Free Water 400 ml 200 ml Tube Feeding 540 ml 600 ml Output Urine Total 700 ml # Voids 2 # Bowel Movements 1 Objective General Appearance: WD/WN, no apparent distress, alert, thin EENT: PERRL/EOMI, normal ENT inspection Neck: non-tender, normal alignment, supple, normal inspection Cardiovascular: normal peripheral pulses, normal rate, regular rhythm, no gallop/murmur, no JVD Respiratory/Chest: chest wall non-tender, lungs clear, normal breath sounds, no respiratory distress, no accessory muscle use Abdomen: normal bowel sounds, non tender, soft, no organomegaly, no mass 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 (5) HTN (hypertension) (6) Seizure disorder Assessment & Plan: Continue keppra (7) Dysphagia Assessment & Plan: G-tube feeds (8) Right foot ulcer Status: stable Assessment/Plan Discharge planning: [facility] Madi Contreras MD May 21, 2018 12:40
--- NOTE | 2018-05-21 14:38 | Pulmonology Progress Note ---
Assessment/Plan Problems: (1) Aspiration pneumonia (2) Sepsis (3) COPD (chronic obstructive pulmonary disease) (4) Severe protein-calorie malnutrition (5) Dementia Assessment/Plan all reviewed no new events respiratory treatment titrate fio2 to sat of 92% dvt porphylaxis dc planning in progress Subjective ROS Limited/Unobtainable: No Constitutional: Reports: no symptoms HEENT: Repors: no symptoms Respiratory: Reports: no symptoms Allergies: Coded Allergies: No Known Allergies (Unverified , 05/07/18) Objective Last 24 Hour Vital Signs Date Time Temp Pulse Resp B/P (MAP) Pulse Ox O2 Delivery O2 Flow Rate FiO2 05/21/18 12:00 97.7 73 20 133/85 (101) 96 97.7 05/21/18 09:00 Room Air 05/21/18 08:00 98.1 89 20 124/79 (94) 98 98.1 05/21/18 04:05 97.4 79 19 118/79 (92) 98 97.4 05/21/18 00:25 97.6 81 18 114/85 (95) 98 97.6 05/20/18 21:24 Room Air 05/20/18 20:32 97.5 75 19 131/67 (88) 99 97.5 05/20/18 16:00 97.2 82 18 136/64 (88) 99 97.2 Intake and Output 05/20/18 05/21/18 19:00 07:00 Intake Total 940 ml 800 ml Output Total 700 ml Balance 940 ml 100 ml Intake Free Water 400 ml 200 ml Tube Feeding 540 ml 600 ml Output Urine Total 700 ml # Voids 2 # Bowel Movements 1 General Appearance: cachetic Respiratory/Chest: chest wall non-tender, lungs clear Cardiovascular: normal peripheral pulses, normal rate Abdomen: normal bowel sounds, non distended Extremities: no cyanosis Skin: no rash Laboratory Tests 05/21/18 06:50: Prothrombin Time 11.3, Prothromb Time International Ratio 1.1 Current Medications Medications (Trade) Dose Ordered Sig/Violette Route PRN Reason Start Time Stop Time Status Last Admin Dose Admin Aspirin (ASA) 81 mg DAILY GT 05/10/18 09:00 06/07/18 08:59 05/21/18 08:05 Atorvastatin Calcium (Lipitor) 20 mg BEDTIME GT 05/09/18 21:00 06/06/18 20:59 8/7/18 20:41 Clotrimazole (Lotrimin) 1 applic THREE TIMES A DAY TOPIC 05/15/18 18:00 06/14/18 17:59 05/21/18 13:00 Dextrose (Dextrose 50%) 25 ml STAT PRN IV Hypoglycemia 05/09/18 18:00 06/06/18 17:59 Dextrose (Dextrose 50%) 50 ml STAT PRN IV Hypoglycemia 05/09/18 18:00 06/06/18 17:59 Diphenhydramine HCl (Benadryl) 25 mg Q6H PRN IVP Itching 05/11/18 21:30 06/10/18 21:29 05/17/18 21:08 Heparin Sodium (Porcine) (Heparin 5000 units/ml) 5,000 units EVERY 12 HOURS SUBQ 05/09/18 21:00 06/06/18 20:59 05/21/18 08:23 Levetiracetam (Keppra) 750 mg Q12HR GT 05/09/18 21:00 06/06/18 20:59 05/21/18 08:06 Lorazepam (Ativan 2mg/ml 1ml) 1 mg Q4H PRN IV For Anxiety 05/18/18 07:51 05/25/18 07:50 05/21/18 02:15 Pantoprazole (Protonix) 40 mg DAILY IVP 05/10/18 09:00 06/07/18 08:59 05/21/18 08:06 Polyethylene Glycol (Miralax) 17 gm DAILY PRN GT Constipation 05/09/18 16:30 06/08/18 16:29 Vitamin D (Vitamin D) 5,000 intlu DAILY GT 05/10/18 09:00 06/07/18 08:59 05/21/18 08:05 Ta Martinez MD May 21, 2018 14:38
[2018-05-21 16:00] VITALS: BP 111/59
[2018-05-21 20:00] VITALS: BP 114/69
[2018-05-21] MEDS: Atorvastatin 20mg tab GT SCH (20:32)
[2018-05-22] VITALS: BP 122/80
[2018-05-22] MEDS: DiphenhydrAMINE 50mg/ml Inj IVP PRN (02:53)
[2018-05-22 04:59] VITALS: BP 118/65
[2018-05-22 08:00] VITALS: BP 122/67
[2018-05-22] MEDS: levETIRAcetam 500mg/5ml Liquid GT SCH (08:35)
[2018-05-22] MEDS: Aspirin Baby 81mg GT SCH (08:35)
[2018-05-22] MEDS: Vitamin D 1000 IU Tab GT SCH (08:35)
[2018-05-22] MEDS: Pantoprazole Inj IVP SCH (08:36)
[2018-05-22] MEDS: Heparin 5000 units/ml inj SUBQ SCH (08:36)
--- NOTE | 2018-05-22 09:33 | Infectious Diseases Prog Note ---
Assessment/Plan Assessment/Plan Sepsis; resolved- 2ry to PNA (HCAP vs Asp PNA), ?UTI -CXR 05/10: Right lower lung airspace disease has slightly improved since prior study. Similar left lower lobe retrocardiac infiltrate. -CXR: Positive for bilateral lower lung infiltrates, likely pneumonia' -sp cx ESBL E.coli ( S Zosyn, Ertapenem), S. aureus (sensi pending) -u/a wbc 5-10, nit neg, leuk +3; ucx >100k VRE (S amp, tetracycline, Linezolid ) Fever/leukocytosis; resolved R foot ulcer, no signs of infection -R foot xray: Possible soft tissue ulcer overlying the fifth metatarsal head. No plain radiographic evidence of osteomyelitis. Note, however, limited sensitivity of plain radiographs for such. No acute bony trauma HTN COPD/emphysema dysphagia s/p G-tube GERD seizure disorder Plan: Continue to monitor off antibiotics - 05/16/18 S/P Zosyn #11 - 05/15/18 Vanco #9, - 05/12/18 SP Levaquin #6/5 for atypical coverage - 05/09 SP IV Vanco #3 -Monitor CBC/CMP, temperatures -GT care -Aspiration precautions -Wound care per hosp protocol Thank you for this consultation. Will continue to follow along with you. Subjective Allergies: Coded Allergies: No Known Allergies (Unverified , 05/07/18) Subjective Clinically stable Afebrile overnight Objective Vital Signs Last 24 Hour Vital Signs Date Time Temp Pulse Resp B/P (MAP) Pulse Ox O2 Delivery O2 Flow Rate FiO2 05/22/18 08:00 97.9 80 20 122/67 (85) 96 97.9 05/22/18 04:59 97.9 81 18 118/65 (82) 100 97.9 05/22/18 00:00 98.1 82 20 122/80 (94) 98 98.1 05/21/18 21:52 Room Air 05/21/18 20:00 97.0 88 18 114/69 (84) 100 97.0 05/21/18 16:00 97.9 77 20 111/59 (76) 97 97.9 05/21/18 12:00 97.7 73 20 133/85 (101) 96 97.7 Height (Feet): 6 Weight (Pounds): 141 Objective General: NAD, Not tracking with eyes HEENT: NCAT, MMM, Trach in place Respiratory: CTAB, No Wheezing Cardiovascular: RRR, S1, S2, No M/R/G Gastrointestinal: Soft, NT, ND, +BS Skin: normal color, no rash, warm/dry Current Medications Medications (Trade) Dose Ordered Sig/Violette Route PRN Reason Start Time Stop Time Status Last Admin Dose Admin Aspirin (ASA) 81 mg DAILY GT 05/10/18 09:00 06/07/18 08:59 05/22/18 08:35 Atorvastatin Calcium (Lipitor) 20 mg BEDTIME GT 05/09/18 21:00 06/06/18 20:59 05/21/18 20:32 Clotrimazole (Lotrimin) 1 applic THREE TIMES A DAY TOPIC 05/15/18 18:00 06/14/18 17:59 05/22/18 08:37 Dextrose (Dextrose 50%) 25 ml STAT PRN IV Hypoglycemia 05/09/18 18:00 06/06/18 17:59 Dextrose (Dextrose 50%) 50 ml STAT PRN IV Hypoglycemia 05/09/18 18:00 06/06/18 17:59 Diphenhydramine HCl (Benadryl) 25 mg Q6H PRN IVP Itching 05/11/18 21:30 06/10/18 21:29 05/22/18 02:53 Heparin Sodium (Porcine) (Heparin 5000 units/ml) 5,000 units EVERY 12 HOURS SUBQ 05/09/18 21:00 06/06/18 20:59 05/22/18 08:36 Levetiracetam (Keppra) 750 mg Q12HR GT 05/09/18 21:00 06/06/18 20:59 05/22/18 08:35 Lorazepam (Ativan 2mg/ml 1ml) 1 mg Q4H PRN IV For Anxiety 05/18/18 07:51 05/25/18 07:50 05/21/18 02:15 Pantoprazole (Protonix) 40 mg DAILY IVP 05/10/18 09:00 06/07/18 08:59 05/22/18 08:36 Polyethylene Glycol (Miralax) 17 gm DAILY PRN GT Constipation 05/09/18 16:30 06/08/18 16:29 Vitamin D (Vitamin D) 5,000 intlu DAILY GT 05/10/18 09:00 06/07/18 08:59 05/22/18 08:35 Donovan Sheikh M.D. May 22, 2018 09:33
--- NOTE | 2018-05-22 10:27 | General Progress Note ---
Assessment/Plan Status: stable Assessment/Plan #. Leukocytosis due to underlying sepsis and septic shock. Currently better --> improved infection, s/p abx, now off abx --> no need to repeat vanc levels --> imaging improved --> 05/19: WBC of 9.0 wnl #. Anemia due to underlying chronic disease. --> Continue to closely monitor for stability --> Anemia panel has been reviewed. Will trend CBC as needed --> Hemoglobin goal is above 7 --> 05/19: Hgb of 10.1 #. Coagulopathy likely related to decreased vit k production --> no bleeding diathesis noted --> INR has been checked #. Hypertension. Systolic blood pressure goal is less than 140. #. Sepsis, secondary to pneumonia. #. Seizure disorder. No recent activity. #. Dysphagia, status post gastrostomy tube. The time the note was entered does not necessarily correspond to the time the patient was seen. Subjective Date patient seen: May 22, 2018 ROS Limited/Unobtainable: Yes Hematologic/Lymphatic: Reports: anemia Allergies: Coded Allergies: No Known Allergies (Unverified , 05/07/18) All Systems: reviewed and negative except above Subjective Pt awake and alert. No acute events. DC planning. Objective Last 24 Hour Vital Signs Date Time Temp Pulse Resp B/P (MAP) Pulse Ox O2 Delivery O2 Flow Rate FiO2 05/22/18 09:00 Room Air 05/22/18 08:00 97.9 80 20 122/67 (85) 96 97.9 05/22/18 04:59 97.9 81 18 118/65 (82) 100 97.9 05/22/18 00:00 98.1 82 20 122/80 (94) 98 98.1 05/21/18 21:52 Room Air 05/21/18 20:00 97.0 88 18 114/69 (84) 100 97.0 05/21/18 16:00 97.9 77 20 111/59 (76) 97 97.9 05/21/18 12:00 97.7 73 20 133/85 (101) 96 97.7 Intake and Output 05/21/18 05/22/18 19:00 07:00 Intake Total 940 ml 1060 ml Output Total 300 ml Balance 940 ml 760 ml Intake Free Water 400 ml 400 ml Tube Feeding 540 ml 660 ml Output Urine Total 300 ml # Bowel Movements 1 Height (Feet): 6 Weight (Pounds): 141 General Appearance: no apparent distress, alert EENT: PERRL/EOMI Neck: normal alignment Cardiovascular: normal peripheral pulses Respiratory/Chest: no respiratory distress Abdomen: soft Say Shin MD May 22, 2018 10:27
[2018-05-22 12:00] VITALS: BP 115/75
[2018-05-22] MEDS ORDERED: LIPITOR20 MG GT (14:10)
[2018-05-22] MEDS ORDERED: BENADRYL25 MG ORAL (14:11)
[2018-05-22] MEDS ORDERED: ATIVAN1 MG ORAL (14:14)
[2018-05-22] MEDS ORDERED: PROTONIX40 MG GT (14:15)
--- NOTE | 2018-05-22 15:15 | Pulmonology Progress Note ---
Assessment/Plan Problems: (1) Aspiration pneumonia (2) Sepsis (3) COPD (chronic obstructive pulmonary disease) (4) Severe protein-calorie malnutrition (5) Dementia Assessment/Plan all reviewed no new events respiratory treatment titrate fio2 to sat of 92% dvt porphylaxis dc planning in progress Subjective ROS Limited/Unobtainable: No Constitutional: Reports: no symptoms HEENT: Repors: no symptoms Respiratory: Reports: no symptoms Allergies: Coded Allergies: No Known Allergies (Unverified , 05/07/18) Objective Last 24 Hour Vital Signs Date Time Temp Pulse Resp B/P (MAP) Pulse Ox O2 Delivery O2 Flow Rate FiO2 05/22/18 12:00 97.9 69 20 115/75 (88) 98 97.9 05/22/18 09:00 Room Air 05/22/18 08:00 97.9 80 20 122/67 (85) 96 97.9 05/22/18 04:59 97.9 81 18 118/65 (82) 100 97.9 05/22/18 00:00 98.1 82 20 122/80 (94) 98 98.1 05/21/18 21:52 Room Air 05/21/18 20:00 97.0 88 18 114/69 (84) 100 97.0 05/21/18 16:00 97.9 77 20 111/59 (76) 97 97.9 Intake and Output 05/21/18 05/22/18 19:00 07:00 Intake Total 940 ml 1060 ml Output Total 300 ml Balance 940 ml 760 ml Intake Free Water 400 ml 400 ml Tube Feeding 540 ml 660 ml Output Urine Total 300 ml # Bowel Movements 1 General Appearance: WD/WN HEENT: normocephalic, atraumatic Respiratory/Chest: chest wall non-tender, lungs clear Cardiovascular: normal rate, regular rhythm Abdomen: normal bowel sounds, no organomegaly Extremities: no cyanosis Skin: no rash Ta Martinez MD May 22, 2018 15:15
--- NOTE | 2018-05-23 13:13 | Discharge Summary ---
Discharge Summary Discharge Summary _ DATE OF ADMISSION: 05/07/2018 DATE OF DISCHARGE: 05/22/2018 CONSULTANTS: Dr. Ta Aburto BRIEF HOSPITAL COURSE: Patient is a 62-year-old male, with history of hypertension, COPD, emphysema and dysphagia status post G-tube, was [facility] from [facility] for evaluation of febrile episodes. Patient was noted to have foot infection. On evaluation at ED, blood pressure was 85/58. Heart rate was 111. He he was initially afebrile, however temperature went to 101.5. He was given IV fluid resuscitation. He was pancultured. Blood work showed WBC of 16. He also had increased sodium and creatinine was elevated. Chest x-ray was positive for bilateral lower lung infiltrates. Patient was then admitted for evaluation of sepsis. He was seen by infectious disease specialist and was given IV vancomycin and Zosyn. He was given Levaquin for atypical coverage. He came in with right foot ulcer. Surgical evaluation was done he was given wound care. There was no signs of active infection. X-ray showed soft tissue ulcer overlying the fifth metatarsal head, there was no plain radiographic evidence of osteomyelitis. She also had abrasion to the left hip. She was given offloading and wound care. She also had sacral stage II ulcer. She was given wound care. Patient had hypernatremia most likely component of intravascular volume depletion. He was given hypotonic IV solution. Sputum culture with Escherichia coli ESBL and Staphylococcus. Urine culture with VRE. Levaquin and vancomycin was discontinued. She was given Zosyn. Leukocytosis improved. She completed antibiotic treatment. Anemia panel was reviewed. Patient has anemia due to underlying chronic disease. Coagulopathy was related to decreased vitamin K production. There was no bleeding noted. He was saturating well and was afebrile. He was eventually discharged to SNF. FINAL DIAGNOSES: Sepsis secondary to pneumonia and UTI Aspiration pneumonia UTI Anemia of chronic disease Multiple ulcer, present on admission Hypertension Seizure disorder Dysphagia Severe protein calorie malnutrition Dementia COPD Coagulopathy related to decreased vitamin K production GERD DISPOSITION: Patient was transferred to [facility]. DISCHARGE MEDICATIONS: Refer to Discharge Medication List. I have been assigned to dictate discharge summary on this account, and I was not involved in the patient's management. Virginia Mcneill [employer] May 23, 2018 13:13
--- NOTE | 2018-05-23 14:22 | Cardiology Report ---
APPROVED REPORT EKG Measurement Heart [id number] Normal sinus rhythm Left axis deviation Low voltage QRS Cannot rule out Anterior infarct, age undetermined Abnormal ECG
== END 2018-05-22 14:45 | DRG 720 ==
LOC: EDBD 13:09 → EMR 13:39 → 2E 14:50 → EDBEDREQ 15:29 → 2E 05-09 09:00 → 4W 05-09 15:46 → 4E 05-15 21:14
DX: A41.9 Sepsis, unspecified organism (principal); J69.0 Pneumonitis due to inhalation of food and vomit; E43 Unspecified severe protein-calorie malnutrition; J15.5 Pneumonia due to Escherichia coli; J15.211 Pneumonia due to Methicillin susceptible Staphylococcus aureus; R65.21 Severe sepsis with septic shock; J18.9 Pneumonia, unspecified organism; R13.10 Dysphagia, unspecified; L97.519 Non-pressure chronic ulcer of other part of right foot with unspecified severity; L89.152 Pressure ulcer of sacral region, stage 2; N17.9 Acute kidney failure, unspecified; D68.4 Acquired coagulation factor deficiency; E87.0 Hyperosmolality and hypernatremia; Z43.1 Encounter for attention to gastrostomy; D63.8 Anemia in other chronic diseases classified elsewhere; I10 Essential (primary) hypertension; G40.909 Epilepsy, unspecified, not intractable, without status epilepticus; J44.9 Chronic obstructive pulmonary disease, unspecified; S70.212A Abrasion, left hip, initial encounter; X58.XXXA Exposure to other specified factors, initial encounter; N39.0 Urinary tract infection, site not specified; F03.90 Unspecified dementia, unspecified severity, without behavioral disturbance, psychotic disturbance, mood disturbance, and anxiety; K21.9 Gastro-esophageal reflux disease without esophagitis; L03.115 Cellulitis of right lower limb; B95.2 Enterococcus as the cause of diseases classified elsewhere; Z16.22 Resistance to vancomycin related antibiotics; Z68.1 Body mass index [BMI] 19.9 or less, adult; Z23 Encounter for immunization
CPT/HCPCS: 36415; 71045; 80048; 80053; 80202; 81003; 82164; 82550; 82553; 83605; 83735; 83880; 84100; 84484; 85007; 85025; 85610; 85730; 87040; 87070; 87081; 87086; 87181; 87205; 90732; 93005; 99291